=== PATIENT | female | born 1940 | race Hispanic/Latino ===

== ENCOUNTER 2016-07-19 12:39 | Inpatient (IN) | payer OTHER, MEDICARE ==
[~2016-07-19] VITALS: Ht 154.9 cm; Wt 76.0 kg
--- NOTE | 2016-07-19 12:54 | NUR ---
75 Y/O FEMALE BIBA FROM [facility] FOR EVAL OF ALTERED MENTAL STATUS AND FEVER SINCE LAST NIGHT. PER EMS, PT HAD TEMERATURE LAST NIGHT AND STAFF GAVE TYLENOL FOR SAME; ALSO REPORT PT HAS HAD URI SYMPTOMS FOR A FEW DAYS. THIS MORNING WAS FOUND LETHARGIC WITH ABNORMAL LAB VALUES (IN CHART, FROM THIS AM - GLUCOSE 1017, GAP 30 ..). PT ARRIVES UNRESPONSIVE; MOANING WITH STAFF INTERVENTIONS (MOVEMENT, VITALS). TACHYCARDIC (PULSE 130S), TACHYPNEIC (RR 24-26), AND HYPOTENSIVE (81/51) PRE HOSPITAL IV IN PLACE WITH FLUIDS INFUSING. FINGERSTICK ON ARRIVAL 499 BROKE BEATER OPERATOR KAT INTO EVAL
--- NOTE | 2016-07-19 12:57 | ED AMS/SEIZURE/WEAK/DIZZY ---
History of Present Illness General Chief Complaint: Altered Mental Status Stated Complaint: BIBA CHANGE IN MENTAL STATUS Source: family, W10 Exam Limitations: clinical condition Vital Signs & Intake/Output Vital Signs & Intake/Output Vital Signs Date Time Temp Pulse Resp B/P Pulse O2 O2 Flow FiO2 Ox Delivery Rate 07/19 1749 99.9 104 22 112/55 96 Nasal 2.0L Cannula 07/19 1623 97 Nasal 2.0L Cannula 07/19 1605 99.5 100 22 121/57 96 Nasal 2.0L Cannula 07/19 1530 99.8 101 20 137/60 92 Room Air Room Air 07/19 1431 99.3 100 22 107/53 100 Non 100% ReBreather 07/19 1405 100.0 106 24 97/47 100 Non 100% ReBreather 07/19 1328 103.3 117 26 92/53 95 Non 100% ReBreather 07/19 1310 102.2 07/19 1256 90 Non 100% ReBreather 07/19 1244 100.9 139 24 81/51 90 Non 100% ReBreather Allergies Coded Allergies: No Known Allergies (07/19/16) Triage Note: 75 Y/O FEMALE BIBA FROM [facility] FOR EVAL OF ALTERED MENTAL STATUS AND FEVER SINCE LAST NIGHT. PER EMS, PT HAD TEMERATURE LAST NIGHT AND STAFF GAVE TYLENOL FOR SAME; ALSO REPORT PT HAS HAD URI SYMPTOMS FOR A FEW DAYS. THIS MORNING WAS FOUND LETHARGIC WITH ABNORMAL LAB VALUES (IN CHART, FROM THIS AM - GLUCOSE 1017, GAP 30 ..). PT ARRIVES UNRESPONSIVE; MOANING WITH STAFF INTERVENTIONS (MOVEMENT, VITALS). TACHYCARDIC (PULSE 130S), TACHYPNEIC (RR 24-26), AND HYPOTENSIVE (81/51) PRE HOSPITAL IV IN PLACE WITH FLUIDS INFUSING. FINGERSTICK ON ARRIVAL 499 WOOD TANK BUILDER KAT INTO EVAL Triage Nurses Notes Reviewed? yes HPI: 75-year-old female arrived by ambulance from [facility] to room 8 for evaluation of unresponsiveness. According to her daughter Thursday or of this week she was complaining of an upper respiratory infection she then started with lethargy which was increasing yesterday and then into today. She has had decrease by mouth intake with a low-grade fever. According to her daughter she denied of any abdominal pain, chest pain, shortness of breath. [facility] a temperature of 103 and she was completely unresponsive so they sent her to the emergency department. Her daughter also reports that they had a family meeting yesterday and they began to keep her at the prison for treatment until it deemed that she needed hospitalization. She is DNR/DNI but the daughter and son would like everything done at this time including intubation if needed. Upon arrival to the emergency department the patient is unresponsive but alert to painful stimuli. Tylenol was given prior to arrival this morning but unknown time. Prehospital blood work showed glucose of 1017. She was started on Tamiflu 75 mg unknown how many doses. (KAT ROBLERO APRN) Past History Travel History Traveled to [place] past 21 day No Medical History Any Pertinent Medical History? 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 No (KAT ROBLERO APRN) Review of Systems Review of Systems Constitutional: Reports: see HPI. EENTM: Reports: no symptoms. Respiratory: Reports: no symptoms. Cardiovascular: Reports: no symptoms. GI: Reports: no symptoms. Genitourinary: Reports: no symptoms. Musculoskeletal: Reports: no symptoms. Skin: Reports: no symptoms. Neurological/Psychological: Reports: dementia. Hematologic/Endocrine: Reports: no symptoms. Immunologic/Allergic: Reports: no symptoms. All Other Systems: Reviewed and Negative (KAT ROBLERO APRN) Physical Exam Physical Exam General Appearance: unresponsive Head: atraumatic, normal appearance Eyes: Bilateral: normal appearance, PERRL, EOMI. Ears, Nose, Throat: normal pharynx, normal ENT inspection Neck: normal inspection, supple, full range of motion Respiratory: normal breath sounds, chest non-tender, no respiratory distress Cardiovascular: tachycardia Gastrointestinal: normal bowel sounds, soft, non-tender Back: normal inspection, normal range of motion Extremities: normal range of motion, pelvis stable Skin: intact, normal color, warm/dry Core Measures ACS in differential dx? No CVA/TIA Diagnosis: No Severe Sepsis Present: Yes BC x2: Yes Lactic Acid x2: Yes IV ABX Broad Spectrum: Yes NS/LR Started: Yes Septic Shock Present: No (KAT ROBLERO APRN) Progress Differential Diagnosis: dehydration, electrolyte imbalance, pneumonia, sepsis, UTI/pyelo, hyperglycemia/DKA/HONK Plan of Care: Orders Procedure Date/time Status CT CHEST WO IV CONTRAST 07/20 1000 Active ICU LAB BUNDLE 07/20 0500 Active CBC WITHOUT DIFFERENTIAL 07/20 0500 Active TROPONIN LEVEL 07/20 0300 Active EKG 07/20 0300 Active TROPONIN LEVEL 07/19 2100 Active EKG 07/19 2100 Active LACTIC ACID 07/19 1822 Active ICU LAB BUNDLE 07/19 1700 Complete PARTIAL THROMBOPLASTIN TIME 07/19 1653 Active PROTHROMBIN TIME 07/19 1653 Active Change service to 07/19 1648 Active Code Status 07/19 1543 Active CULTURE,URINE 07/19 1528 Active LOWER RESPIRATORY CULTURE 07/19 1524 Active LACTIC ACID 07/19 1522 Complete ARTERIAL BLOOD GAS (GEN) 07/19 1443 Active Pathway - chart 07/19 1442 Active House Staff 07/19 1442 Active Patient Data 07/19 1442 Active Code Status 07/19 1442 Complete Add-on Test (ER Only) 07/19 1435 Active Patient Data 07/19 1429 Active Admit to inpatient 07/19 1423 Active Add-on Test (ER Only) 07/19 1352 Active THYROID STIMULATING HORMONE 07/19 1310 Active SERUM OSMOLALITY 07/19 1310 Active GLYCOSYLATED HGB 07/19 1310 Active FREE T4 07/19 1310 Active DEPAKOTE LEVEL 07/19 1310 Active ACETONE 07/19 1310 Active RAPID VIRAL INFLUENZA A 07/19 1302 Complete MIXED VENOUS BLOOD GAS (GEN) 07/19 1257 Complete Saline Lock 07/19 1257 Active Telemetry/Journeyman Carpenter 07/19 1257 Active Vargas, Insertion/Removal/Asses 07/19 1257 Active CULTURE,URINE 07/19 1257 Active BLOOD CULTURE 07/19 1257 Active URINALYSIS 07/19 1257 Complete TROPONIN LEVEL 07/19 1257 Active LIPASE 07/19 1257 Active LACTIC ACID 07/19 1257 Active COMPREHENSIVE METABOLIC PANEL 07/19 1257 Active CBC WITHOUT DIFFERENTIAL 07/19 1257 Complete AMYLASE 07/19 1257 Active EKG 07/19 1254 Active Intake & Output 07/19 1247 Active FingerStick- Glucose 07/19 1242 Active US-LIMITED ABDOMEN 07/19 UNK Active SWALLOW EVALUATION 07/19 UNK Active XRY-PORTABLE CHEST XRAY 07/19 UNK Active Lab Add-on Test 07/19 UNK Active VTE Mechanical Prophylaxis 07/19 UNK Active Precautions 07/19 UNK Active Nursing Misc 07/19 UNK Active FingerStick- Glucose 07/19 UNK Active Elevate 07/19 UNK Active ICU LAB BUNDLE 07/19 UNK Active Current Medications Sig/Bess Start time Last Medication Dose Stop Time Status Admin Pantoprazole Sodium 40 MG DAILY 07/20 1000 CANr (Protonix) Ampicillin Sodium/ 3,000 MG Q12 07/19 2200 AC Sulbactam Sodium (Unasyn) Sodium Chloride 100 ML (Normal Saline 0.9%) Acetaminophen 1,000 MG Q4 HRS NEEDED PRN 07/19 1815 UNVr (Ofirmev) Potassium Chloride 40 MEQ 150 MLS/HR 07/19 1545 CAN (KCl 20MEQ in NS 1000ML) Laboratory Tests 07/19/16 1635: Lactic Acid 7.1 H 07/19/16 1635: Anion Gap 24 H, Estimated GFR 19 L, Glucose 692 *H, Calcium 7.8 L, Phosphorus 4.1, Magnesium 1.9, Total Bilirubin 0.6, AST 33, ALT 50, Albumin 3.2 L 07/19/16 1610: pH 7.31 L, pCO2 26 L, pO2 77 L, HCO3 13 L, ABG O2 Sat (Measured) 94.0 L, P- 50 (Temp Corrected) N, Carboxyhemoglobin 0.3 L, O2 Concentration % 2L, Temperature 99.3, O2 Delivery Method NC, Phlebotomy Draw Site RIGHT RADIAL 07/19/16 1557: Lactic Acid Cancelled 07/19/16 1310: Anion Gap 34 H, Estimated GFR 10 L, BUN/Creatinine Ratio 9.8, Glucose 1103 *H, Hemoglobin A1c Pending, Serum Osmolality 389 H, Lactic Acid 8.3 H, Calcium 9.5 , Total Bilirubin 0.9, AST 28, ALT 67 H, Alkaline Phosphatase 82, Troponin I 0.14 *H, Total Protein 7.6, Albumin 4.3, Globulin 3.3, Albumin/Globulin Ratio 1.3, Amylase 131 H, Lipase 161, TSH 0.312, Free T4 2.76 H, CBC w Diff MAN DIFF ORDERED, RBC 4.87, MCV 99.8 H, MCH 31.4 H, RDW 14.0, MPV 10.2, Gran % 82.8 H, Lymphocytes % 7.6 L, Monocytes % 9.5 H, Eosinophils % 0, Basophils % 0.1, Absolute Granulocytes 21.0 H, Segmented Neutrophils 72, Band Neutrophils 13 H, Absolute Lymphocytes 1.9, Lymphocytes 11 L, Monocytes 3, Absolute Monocytes 2.4 H, Absolute Eosinophils 0, Basophils 1, Absolute Basophils 0, Normocytic RBCs VERIFIED, Normochromic RBCs VERIFIED, PUBS MCHC 31.4 L, Valproic Acid 14.9 L, Acetone Level POSITIVE AT 1:4 DIL, Urine Color YEL, Urine Clarity CLDY H, Urine pH 5.0, Ur Specific Crouse 1.025, Urine Protein 30 H, Urine Ketones TRACE H, Urine Nitrite NEG, Urine Bilirubin NEG@ICTO, Urine Urobilinogen 1.0, Ur Leukocyte Esterase NEG, Ur Microscopic SEDIMENT EXAMINED, Urine WBC RARE, Ur Epithelial Cells MOD H, Urine Bacteria MANY H, Urine Hemoglobin NEG, Urine Glucose >=1000 H 07/19/16 1215: Bicarbonate Actual 13 L, Mixed VBG pH 7.22 L, Mixed VBG pCO2 33 L, Mixed VBG O2 Saturation 45, P-50 (Temp Corrected) Y, Carboxyhemoglobin 0.4 L, O2 Concentration % 100, Temperature 101.8 H, O2 Delivery Method NRB, Phlebotomy Draw Site R-HAND Microbiology 07/19 1528 URINE ROUT: Urine Culture - COLB 07/19 1524 LOWER RESP: Respiratory Culture - COLB 07/19 1524 LOWER RESP: Gram Stain - COLB 07/19 1458 BLOOD: Blood Culture - RECD 07/19 1315 NASOPHARYN: Influenza Virus A & B Rapid Smear - COMP 07/19 1310 URINE ROUT: Urine Culture - RECD 07/19 1310 BLOOD: Blood Culture - RECD CXR Impression: see below Initial ED EKG: sinus tachycardia, left axis deviation nonspecific ST-T wave changes no old one to compare Comments: PATIENT: NAS BARRAZA PRESENT AGE: 75 PATIENT ACCOUNT NO: [id number] : 42 LOCATION: [facility] ORDERING PHYSICIAN: KAT ROBLERO APRN SERVICE DATE: 07/19/16-1324 EXAM TYPE: RAD - XRY-PORTABLE CHEST XRAY EXAMINATION: XR PORTABLE CHEST CLINICAL INFORMATION: Pneumonia. COMPARISON: None TECHNIQUE: Portable AP view of the chest was obtained. FINDINGS: The cardiac silhouette is not enlarged. There is deviation of the trachea to the right with soft tissue density in the left paratracheal region and an associated surgical clip. The lung volumes are decreased without obvious consolidation or atelectasis. No focal osseous abnormalities. IMPRESSION: Low lung volumes without consolidation or atelectasis. Rightward deviation of the trachea with left paratracheal soft tissue mass. Correlate with any history of retrosternal goiter. Additional imaging as clinically warranted. DICTATED BY: BLAYNE TEJADA MD DATE/TIME DICTATED:07/19/161416 REGRINDER OPERATOR:VIJAYA DATE/TIME TRANSCRIBED:07/19/161416 CONFIDENTIAL, DO NOT COPY WITHOUT APPROPRIATE AUTHORIZATION. <Electronically signed in Other Vendor System> SIGNED BY: BLAYNE TEJADA MD 07/19/16 142 Case discussed with family. Dr. Zepeda was in the room to and spoke with family also. Margy Sanon MD notified and will admit patient to ICU with DKA, renal failure, electrolyte abnormalities, elevated troponin. Aggressive hydration, insulin drip, bicarbonate drip, IV antibiotic coverage broad-spectrum and patient has been pancultured. Endocrine consult with Aram Mccracken MD. Since there was a positive troponin Dr. Rebolledo was notified. No ECG changes that are acute. (KAT ROBLERO APRN) Departure Departure Time of Disposition: 1431 Disposition: STILL A PATIENT Condition: Critical Clinical Impression Primary Impression: DKA (diabetic ketoacidoses) Qualifiers: Diabetes mellitus type: other specified (including MARKEL) Diabetes mellitus complication detail: with coma Qualified Code: E13.11 - Other specified diabetes mellitus with ketoacidosis with coma Secondary Impressions: Acute renal failure Qualifiers: Acute renal failure type: unspecified Qualified Code: N17.9 - Acute kidney failure, unspecified Elevated troponin Lactic acidosis Leukocytosis Qualifiers: Leukocytosis type: unspecified Qualified Code: D72.829 - Elevated white blood cell count, unspecified Referrals: GEREMIAS GRAY,KAT PAUL (PCP) Departure Forms: Customer Survey General Discharge Information Admission Note Spoke With: D'BALLESTEROS MD,MARGY A. Documentation of Exam: Documentation of any treatments & extenuating circumstances including Concerns Regarding Discharge (functional status, medication knowledge or non-compliance, living conditions, etc.) that warrant an admission rather than observation: Will need admission to ICU for treatment of DKA. IV fluids, IV insulin, IV bicarbonate. Aram Mccracken MD already consulted. Further evaluation of sepsis/CT abdomen and pelvis pending. We'll cover with IV antibiotics also (KAT ROBLERO APRN) PA/ENGLISH AS A SECOND LANGUAGE INSTRUCTOR Co-Sign Statement Statement: ED Attending supervision documentation- [X] I saw and evaluated the patient. I have also reviewed all the pertinent lab results and diagnostic results. I agree with the findings and the plan of care as documented in the PA's/ENGLISH AS A SECOND LANGUAGE INSTRUCTOR's documentation. [X] I have reviewed the ED Record and agree with the PA's/ENGLISH AS A SECOND LANGUAGE INSTRUCTOR's documentation. [] Additions or exceptions (if any) to the PAs/ENGLISH AS A SECOND LANGUAGE INSTRUCTOR's note and plan are summarized below: [Patient has been having increasing lethargy over the past few days. Outpatient blood work was obtained today and showed a glucose of greater than thousand. Patient is in DKA here in the ER. Patient started on a bicarbonate drip as well as an insulin drip. Patient aggressively hydrated. Endocrinology as well as cardiology consultation to have been obtained. Patient will be admitted to the ICU.] (CHRISTINE GRAY,ARAM Elkins) Critical Care Note Critical Care Note Critical Care Time: mins: (45) (KAT ROBLERO APRN)
--- NOTE | 2016-07-19 12:59 | NUR ---
PT ARRIVES WITH DNR/DNI PAPERWORK. DOCUMENT SPECIALIST INFORMED OF SAME
--- NOTE | 2016-07-19 13:18 | NUR ---
RESP HERE FOR VBG PICKUP
[2016-07-19 13:20] LABS: ABSOLUTE BASOPHIL COUNT 0 /CUMM (0.0-0.2); ABSOLUTE EOSINOPHIL COUNT 0 /CUMM (0.0-0.7); ABSOLUTE LYMPH COUNT 1.9 /CUMM (1.2-3.4); ABSOLUTE MONOCYTE COUNT 2.4 /CUMM (0.10-0.60); BASOPHIL % 0.1 % (0.0-2.0); EOSINOPHIL % 0 % (0-5); HEMATOCRIT 48.6 % (37-47); MEAN CORPUSCULAR HGB 31.4 PG (27.0-31.0); MEAN CORPUSCULAR HGB CONC 31.4 G/DL (33.0-37.0); MEAN CORPUSCULAR VOLUME 99.8 FL (81.0-99.0); MEAN PLATELET VOLUME 10.2 FL (7.4-10.4); PLATELET COUNT 223 /CUMM (130-400); RED BLOOD CELL CT 4.87 /CUMM (4.20-5.40); WHITE BLOOD CELL COUNT 25.4 /CUMM (4.8-10.8)
[2016-07-19 13:33] LABS: GRANULOCYTE % 82.8 % (42.2-75.2)
--- NOTE | 2016-07-19 13:33 | NUR ---
PT NOTED TO BE MORE ALERT, OPENING EYES TO VERBAL STIMULI. SINUS TACH 120 ON CONTROLLER INSTRUCTOR.
--- NOTE | 2016-07-19 13:52 | NUR ---
CRITICAL TEST RESULTS [id number] NAS BARRAZA 75 F TESTS AND RESULTS: GLUCOSE 1,103 CO2 9, LACTIC 8.3 Results received and read back by: DAVE NOBLES Results received date and time: 07/19/16 1352 The following provider was notified of the results, and read the results back: MARIALUISA STEPHENS Notified date and time: 07/19/16 at 1353
--- NOTE | 2016-07-19 13:53 | NUR ---
CRITICAL TEST RESULTS [id number] NAS BARRAZA 75 F TESTS AND RESULTS: TROPONIN 0.14 Results received and read back by: AMY GROSS Results received date and time: 07/19/16 1353 The following provider was notified of the results, and read the results back: KAT ELAM Notified date and time: 07/19/16 at 1355
--- NOTE | 2016-07-19 14:22 | RADIOLOGY REPORT ---
EXAMINATION: XR PORTABLE CHEST CLINICAL INFORMATION: Pneumonia. COMPARISON: None TECHNIQUE: Portable AP view of the chest was obtained. FINDINGS: The cardiac silhouette is not enlarged. There is deviation of the trachea to the right with soft tissue density in the left paratracheal region and an associated surgical clip. The lung volumes are decreased without obvious consolidation or atelectasis. No focal osseous abnormalities. IMPRESSION: Low lung volumes without consolidation or atelectasis. Rightward deviation of the trachea with left paratracheal soft tissue mass. Correlate with any history of retrosternal goiter. Additional imaging as clinically warranted.
--- NOTE | 2016-07-19 14:44 | History & Physical ---
[facility] 07/19/16 1444: General Information and HPI MD Statement: I have seen and personally examined NAS RUANO and documented this H&P. The patient is a 75 year old F who presented with a patient stated chief complaint of [hyperglycemia, fever, and unresponsiveness]. Source of Information: family Exam Limitations: dementia, poor historian History of Present Illness: 75-year-old female with PMH anxiety, depression, alzheimer's dementia, baseline nonverbal and unable to recognize people, hypothyroidism, was brought in by ambulance from [facility]) for glucose > 1000, persistent fever, and unresponsiveness. History obtained from her daughter who was present at bedside. Patient was in her normal state of health up until (07/17/16), when her daughter notices that she appears more listless with decreased po intake. There was also outbreak of influenza at the facility, so she was started on tamiflu ( however rapid flu negative on 07/19). The next day, she spiked fever, was given tylenol, and was noted to be more restless. Her PO intake continued to deteriorate, and she threw up X 1. Her legs was also noted to be purple/mottled. On Thursday (day of admission), she spiked fever again, and blood work shows glucose > 1000. She was also unresponsive, which was concerning to the daughter. So she was brought to the ED. On presentation, she was unresponsive, with vitals significant for temp 103.3, tachycardia 139, BP 81/51, sat 100% on non rebreather. Labs significant for glucose of 1103, AG 34, na 147, k 5.1, serum osm 350, bun/cr 42/4.3 (was 13/0.7 in mar 2015), lactic acid 8.3, venous blood gas ph 7.22, co2 33, wbc 25.4 with 13 bands. She received 4L NS with improvement of BP to 107/53, she was started on bicarb drip as well as insulin drip. Her trop also noted to be elevated at 0.14. The flu swab was negative. When we examined her, she was back to baseline (appears confused, nonverbal, moaning, unable to recognize her daughter, but this is her baseline). Her blood glucose has improved to around 500. She did have nonproductive cough. Confirmed with her daughter that she wishes to be DNR/DNI. CXR shows left paratracheal soft tissue mass that warrants further imaging. CT abd and pelvis showed possible pneumonia. Unasyn given 1X in ED. 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 Extended Care Facility Who Do You Live With? [facility] Services at Home: Nursing Primary Language: Greenlandic Functional Ability ADLs Needs Assist: dressing, eating, toileting, bathing. Ambulation: non-ambulatory IADLs Needs Assist: shopping, housework, finances, food prep, telephone, transportation, medication admin. Review of Systems Review of Systems Constitutional: Reports: see HPI, fever. Respiratory: Reports: cough. Exam & Diagnostic Data Last 24 Hrs of Vital Signs/I&O Vital Signs Date Time Temp Pulse Resp B/P Pulse O2 O2 Flow FiO2 Ox Delivery Rate 07/19 1623 97 Nasal 2.0L Cannula 07/19 1605 99.5 100 22 121/57 96 Nasal 2.0L Cannula 07/19 1530 99.8 101 20 137/60 92 Room Air Room Air 07/19 1431 99.3 100 22 107/53 100 Non 100% ReBreather 07/19 1405 100.0 106 24 97/47 100 Non 100% ReBreather 07/19 1328 103.3 117 26 92/53 95 Non 100% ReBreather 07/19 1310 102.2 07/19 1256 90 Non 100% ReBreather 07/19 1244 100.9 139 24 81/51 90 Non 100% ReBreather Intake & Output 07/19 1600 07/19 0800 07/19 0000 Intake Total 4000 Output Total 130 Balance 3870 Intake, IV 4000 Output, Urine 130 Patient 81.647 kg Weight Physical Exam General Appearance Alert, Not oriented, nonverbal, her baseline as per daughter Skin No Significant Lesion HEENT Atraumatic, dry mucous membranes Neck No JVD, +2 Carotid Pulse wo Bruit Cardiovascular Normal S1, Normal S2, tachycardic, low 100s Lungs Clear to Auscultation, was not taking deep breaths Abdomen Normal Bowel Sounds, Soft, No Tenderness Neurological moaning, no meaningful speech Extremities No Edema Vascular Normal Pulses, normal cap refill Diagnostic Data EKG Results ST 134 CXR Results IMPRESSION: Low lung volumes without consolidation or atelectasis. Rightward deviation of the trachea with left paratracheal soft tissue mass. Correlate with any history of retrosternal goiter. Additional imaging as clinically warranted. Other Results CT abd and pelvis IMPRESSION: 1. Bilateral lower lobe airspace consolidations, right greater than left, which likely represent pneumonia. 2. The gallbladder is distended and hyperdense without pericholecystic fat stranding. This could represent stones versus sludge. Right upper quadrant ultrasound could be considered to help further evaluate if clinically indicated. 3. Multiple hypodensities throughout the bilateral kidneys. Calcifications associated with a right kidney lower pole hypodense lesion. These could represent complex cysts; however, renal cell carcinoma cannot be excluded and followup ultrasound is recommended to help further evaluate. Nonobstructive right renal stone. 4. Colonic diverticulosis without adjacent inflammatory change. DICTATED BY: SARA PRITCHARD MD DATE/TIME DICTATED:07/19/161602 Assessment/Plan Assessment: 75-year-old female with PMH anxiety, depression, alzheimer's dementia, baseline nonverbal and unable to recognize people, hypothyroidism, was brought in by ambulance from [facility] for glucose > 1000, persistent fever, and unresponsiveness. Patient admitted to ICU for hyperosmolar hyperglycemic state with mild ketoacidosis and lactic acidosis, with fever up to 103.3, WBC 25.4 with 13 bands , most likely due to pneumonia as suggested by imaging. Troponin also found to be elevated, most likely due to demand ischemia, but cannot rule out ischemia as the stressor. 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 Problem list: # Hyperosmolar hyperglycemic state with mild ketoacidosis and lactic acidosis # Severe sepsis, hypotension, most likely due to pneumonia # BRANDON most likely due to poor PO intake (prerenal) # Positive troponin most likely demand ischemia # Hyperosmolar hyperglycemic state with mild ketoacidosis and lactic acidosis - No hx of DM in pt or family * On 40meq KCL in NS at 150ml/hour, and insulin drip at 8. * Appreciate endocrinology input, Dr. Mccracken * F/u hba1c, tsh, ft4 * Maintain on insulin drip tonight with plan to switch to SC insulin tomorrow * When her bloood sugar gets to 250 we should change her IV to D5 half-normal saline + 20 milliequivalents KCl at 150 mL per hour. At that point her insulin drip should be adjusted to keep her sugar in the 180-200 range. * IV protonix started # Severe sepsis most likely due to PNA - Flu negative - CT: Bilateral lower lobe airspace consolidations, right greater than left, which likely represent pneumonia. - The gallbladder is distended and hyperdense without pericholecystic fat stranding. This could represent stones versus sludge. Right upper quadrant ultrasound could be considered to help further evaluate if clinically indicated. * Follow pancx * 1XUnasyn given in ED * Continue high dose unasyn for possible aspiration PNA, consider HCAP as well * Follow up CT chest wo contrast on 07/20 * F/U RUQ US. doubt obstructive pathology given normal bilirubin # BRANDON most likely due to poor PO intake (prerenal) - Multiple hypodensities throughout the bilateral kidneys. Calcifications associated with a right kidney lower pole hypodense lesion. These could represent complex cysts; however, renal cell carcinoma cannot be excluded and followup ultrasound is recommended to help further evaluate. Nonobstructive right renal stone. * Aggressive IVF * Consider renal consult if does not improve # Positive troponin (most likely demand ischemia, tachy up to 140, fever) - Trop 0.14 * Serial Ekg and trops * Consider cardio consult # Home meds Levothyroxine Lisinopril 5 Vaproic Trazodone 100 Quetiapine 50 Senna Miralax Diet: NPO DVT ppx: mech and pharm DNR/DNI As Ranked By This Provider Problem List: 1. DKA (diabetic ketoacidoses) Qualifiers Diabetes mellitus type: other specified (including MARKEL) Diabetes mellitus complication detail: with coma Qualified Code: E13.11 - Other specified diabetes mellitus with ketoacidosis with coma 2. Lactic acidosis 3. Leukocytosis Qualifiers Leukocytosis type: unspecified Qualified Code: D72.829 - Elevated white blood cell count, unspecified 4. Hyperosmolar coma 5. Elevated troponin 6. Acute renal failure Qualifiers Acute renal failure type: unspecified Qualified Code: N17.9 - Acute kidney failure, unspecified Core Measures/Miscellaneous Acute Coronary Syndrome ACS Diagnosis: No Cerebrovascular Accident CVA/TIA Diagnosis: No Congestive Heart Failure CHF Diagnosis: No Venous Thromboembolism VTE Risk Factors: Age > 40, Immobility, paresis [facility] prophylaxis d/t: No contraindications No VTE Pharm Prophylaxis d/t: No contraindications VTE Diagnosis: No VTE Type: NONE VTE Confirmed by (Test): NONE Severe Sepsis Severe Sepsis Present: Yes BC x2: Yes Lactic Acid x2: Yes IV ABX Broad Spectrum: Yes NS/LR Started: Yes Septic Shock Septic Shock Present: No Miscellaneous Documentation Attending Case Discussed With: SHELLIE GRAY,MELISSA Sarabia Primary Care Physician: GEREMIAS GRAY,KAT PAUL Patient sees these Specialists None Level of Patient Care: Critical Care (CRI) NAN WEBBER 07/19/16 1735: Resident Review Statement Resident Statement: examined this patient, discussed with international marketing executive, agreed with international marketing executive, discussed with family, reviewed EMR data (avail), discussed with nursing , discussed with case mgmt, reviewed images, amended to note Other Findings: 75-year-old woman was brought in to the emergency room from [facility] after blood sugar found to be elevated around 1000. Mrs. Ruano is an unfortunate case of end-stage Alzheimer dementia, with past medical history significant for hypertension, dysphagia, acquired cystic kidney disease, AR, OA, and dysphagia. Majority of the HPI was obtained from her daughter who presented at the bedside. According to daughter patient's as her baseline is noncommunicative and nonverbal. Recently there was a flu outbreak at the [facility]. Up until Thursday she was at her overall state of health. She did not express any symptoms of upper respiratory tract infection, change in bowel habits and consistency, change in urine color and smell. As her baseline patient has a very poor oral intake and since Thursday her appetite and by mouth intake has diminished significantly. According to daughter patient refused eating food and drinking water and had persistence temperatures of around 102-103 which did not resolve with Tylenol and cold compress. Patient progressively became more and more lethargic this a.m. blood work was obtained which showed a significant hyperglycemia of 1017 mg/dl, and patient was sent to the emergency room. Review of system: Not obtainable; vital signs: Max temperature of 103 the remainder of the vital signs remained stable; physical exam: Patient is lethargic, nonverbal noncommunicative due to her advanced dementia, head and neck: Mucous membranes are dry; heart: S1 and S2 no murmur; abdomen: Generalized tenderness; extremities: No edema, capillary refilling time increased. Lab findings WBC of 25.4 with significant left shift band 13, hemoglobin 15.3, hematocrit 48.6, AB.31, 26, 77, 13 Sodium 147, potassium 5.1, chloride 104, bicarbonate 9, BUN 42, creatinine 4.3, R range of initially 34 improved to 24, blood sugar initially 1103>>> 692mg/dl Troponin: 0.14 Lactic acid 8.3>>> 7.1 UA: Positive nitrates glucose morning 1000 positive ketone Chest x-ray: Abdominopelvic CT scan: Multiple hypodensities throughout the bilateral kidneys. Calcifications associated with a right kidney lower pole hypodense lesion; Bilateral lower lobe airspace consolidations, right greater than left, which likely represent pneumonia; The gallbladder is distended and hyperdense without pericholecystic fat stranding. Assessment 75-year-old woman was admitted for diabetes ketoacidosis. She was found to have elevated lactic acid and bandemia and positive urine she also has elevated lactic acid. Chest x-ray did not show any infiltration or consolidation. List of active problems #1 DKA: Patient does not have history of diabetes. New-onset diabetes considering her age is a very, unit phenomenon however it cannot be excluded. If patient have had ongoing uncovered DM, then poor oral intake and insulin deficiency could cause her to be in DKA. Other conditions that could trigger it diabetes ketoacidosis and needs to be rule out, are infection and ischemia/ infarct. * Admit to ICU * Started patient on normal saline 10-14 mL per KG per hour; Tailor for urine outputs * Continue insulin drip * Check fingerstick every hour * serial abdominal exam Q1 * Expected decrease in blood sugar between 50-70 mg/dL; adjust the insulin drip rates * Repeat ICU bundle every 4 hours * Continue insulin drip to close the AG * If blood sugar was below 250 and Was is still elevated start dextrose water 5% with 20 mEq potassium with a rate of 150 mL per hour * when BS reached 180-200 adjust insulin drip should be adjusted to keep her sugar in the 180-200 range. per endo " keep the patient on an insulin drip during the night tonight and we can switch her to subcutaneous insulin tomorrow "Morris 4d #2 Sepsis (fever, lactic acidosis, bandemia, documented/suspect the source of infection) Vs severe dehydration. Chest x-ray showed tractional deviation and CT scan of the chest highlighted basilar consolidation right greater than the left (possibly aspiration). She also has an active urine which could be the source of infection. * Nothing by mouth * Trend lactic acid as a measure of efficacy of fluid resuscitation: Initial 8.3 repeat 7.1 * Follow urine culture and blood culture and sputum culture * IV Unasyn 3000 mg every 12 * Head elevation and aspiration precaution * She'll swallow eval #3 Elevated Troponin: ACS Vs demand ischemia . Acute coronary syndrome and ischemic events needs to be rule out as they could be the initiating event for DKA. * Trend troponin * non need for ASA or heparin now #4 Electrolyte imbalance and underlying elevated anion gap metabolic acidosis. Deltadelta: 12 and DD+13 (measured Hco3)= 25 which is somewhat equal to normal ( expected Hco3 of 24). She also has proper respiratory compensation. * repleting K * Replete Phosphorus if <1 * Replet Mg if <2 #5 BRANDON most possibly due to severe dehydraion in the setting of DKA. CCR and BUN are both improved with hydraion that was done in the ED. * continue IV hydration and repeat ICU bundle #6 Her medication for parkinsons disease, sleep disturbance, HTN were nursing- home report in the chart. Please consider resuming them in the am. DNRDNI Pain-mild painpthway Pain-mild painpthway
--- NOTE | 2016-07-19 14:59 | NUR ---
PT TITRATED TO RA AND MAINTAINING O2 SAT AROUND 92%. HOUSE STAFF AT BEDSIDE FOR EVAL.
--- NOTE | 2016-07-19 15:03 | NUR ---
UNASYN INFUSING NOW PER EMAR. 91-92 % ON RA.
--- NOTE | 2016-07-19 15:31 | NUR ---
DR. CLARK AND DR. CALHOUN AT BEDSIDE FOR EVAL.
--- NOTE | 2016-07-19 15:33 | NUR ---
PER DR. CLARK, KEEP INSULIN GTT AT 8 U/HOUR. PT TAKEN TO CAT SCAN WITH THIS RN. WILL CONTINUE TO MONITOR.
--- NOTE | 2016-07-19 16:00 | NUR ---
RESP AT BEDSIDE TO OBTAIN ABG.
--- NOTE | 2016-07-19 16:05 | Cons- Endocrinology ---
General Information and HPI Consulting Request Date of Consult: 07/19/16 Requested By: medical team Reason for Consult: Hyperglycemic hyperosmolar state Source of Information: family, old records Exam Limitations: unable to give history History of Present Illness: This 75-year-old woman who was brought to the hospital from a group home after her blood was drawn earlier today. She was found to have a sugar 1000 and was transferred to the emergency room at the [facility]. The patient has a fever of 103 and has been confirmed to have an elevated blood sugar of over 1000 (1103). There is no previous history of diabetes. Apparently the patient has not been doing well over the past 3 days. She was noted to have a fever of 103 and began eating very little. Then she stopped taking fluids. The patient apparently has a history of dementia. She has been in a group home for 3 years. She is nonverbal. Her daughter speaks to her in Malay which is her [place] language but she still does not follow commands. She also has a history of hypothyroidism. Allergies/Medications Allergies: Coded Allergies: No Known Allergies (07/19/16) Current Medications: Current Medications Sig/Bses Start time Last Medication Dose Route Stop Time Status Admin Ampicillin Sodium/ 3,000 MG ONCE ONE 07/19 1445 DC 07/19 Sulbactam Sodium IV 07/19 1514 1503 Sodium Chloride 100 ML Ampicillin Sodium/ 0 .STK-MED ONE 07/19 1445 DC Sulbactam Sodium .ROUTE Insulin Human Regular 100 UNIT Q24H 07/19 1400 AC 07/19 Sodium Chloride 100 ML IV 1428 Insulin Human Regular 8 UNITS ONCE ONE 07/19 1400 DC 07/19 IV 07/19 1401 1428 Potassium Chloride 40 MEQ Q6H 07/19 1600 AC Sodium Chloride 1,000 ML IV Potassium Chloride 40 MEQ 150 MLS/HR 07/19 1545 CAN IV Sodium Bicarbonate 50 MEQ ONCE ONE 07/19 1400 DC 07/19 IV 07/19 1401 1428 Sodium Bicarbonate 150 MEQ Q8H 07/19 1400 AC 07/19 Dextrose/Water 1,000 ML IV 1428 Sodium Chloride 1,000 ML BOLUS ONE 07/19 1400 DC 07/19 IV 07/19 1459 1428 Sodium Chloride 1,000 ML BOLUS ONE 07/19 1400 DC IV 07/19 1459 Sodium Chloride 1,000 ML BOLUS ONE 07/19 1330 DC 07/19 IV 07/19 1429 1338 Sodium Chloride 1,000 ML BOLUS ONE 07/19 1300 DC 07/19 IV 07/19 1359 1308 Past History Travel History Traveled to [place] past 21 day No Medical History Neurological: dementia EENT: NONE Cardiovascular: hypertension Respiratory: NONE Gastrointestinal: NONE Hepatic: NONE Renal: NONE Musculoskeletal: osteoarthritis Psychiatric: anxiety, depression, PERSONALITY DISORDER Endocrine: hypothyroidism Blood Disorders: NONE Cancer(s): NONE 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 Surgical History Surgical History: unobtainable Exam & Diagnostic Data Last 24 Hrs of Vital Signs/I&O Vital Signs Date Time Temp Pulse Resp B/P Pulse O2 O2 Flow FiO2 Ox Delivery Rate 07/19 1431 99.3 100 22 107/53 100 Non 100% ReBreather 07/19 1405 100.0 106 24 97/47 100 Non 100% ReBreather 07/19 1328 103.3 117 26 92/53 95 Non 100% ReBreather 07/19 1310 102.2 07/19 1256 90 Non 100% ReBreather 07/19 1244 100.9 139 24 81/51 90 Non 100% ReBreather Intake & Output 07/19 1600 07/19 0800 07/19 0000 Intake Total 4000 Output Total 130 Balance 3870 Intake, IV 4000 Output, Urine 130 Patient 180 lb Weight Vital Signs Date Time Temp Pulse Resp B/P Pulse O2 O2 Flow FiO2 Ox Delivery Rate 07/19 1431 99.3 100 22 107/53 100 Non 100% ReBreather 07/19 1405 100.0 106 24 97/47 100 Non 100% ReBreather 07/19 1328 103.3 117 26 92/53 95 Non 100% ReBreather 07/19 1310 102.2 07/19 1256 90 Non 100% ReBreather 07/19 1244 100.9 139 24 81/51 90 Non 100% ReBreather Intake & Output 07/19 1600 07/19 0800 07/19 0000 Intake Total 4000 Output Total 130 Balance 3870 Intake, IV 4000 Output, Urine 130 Patient 180 lb Weight Physical Exam General Appearance: lethargic Head: normal appearance Neck: normal inspection Respiratory: normal breath sounds Cardiovascular: regular rate/rhythm Gastrointestinal: normal bowel sounds, soft Back: normal inspection Extremities: normal inspection Neurologic/Psych: stupor Skin: intact Labs/Neri Results: Laboratory Tests 07/19 07/19 1310 1215 Blood Gas Bicarbonate Actual (22 - 26 MEQ/L) 13 L Mixed VBG pH (7.31 - 7.41 PH) 7.22 L Mixed VBG pCO2 (41 - 51 TORR) 33 L Mixed VBG O2 Saturation (35 - 45 TORR) 45 P-50 (Temp Corrected) Y Carboxyhemoglobin (1.5 - 5.0 %) 0.4 L O2 Concentration % 100 Temperature (97.0 - 100.0 FARH) 101.8 H O2 Delivery Method NRB Chemistry Sodium (137 - 145 mmol/L) 147 H Potassium (3.5 - 5.1 mmol/L) 5.1 Chloride (98 - 107 mmol/L) 104 Carbon Dioxide (22 - 30 mmol/L) 9 *L Anion Gap (5 - 16) 34 H BUN (7 - 17 mg/dL) 42 H Creatinine (0.5 - 1.0 mg/dL) 4.3 H Estimated GFR (>60 ml/min) 10 L BUN/Creatinine Ratio (7 - 25 %) 9.8 Glucose (65 - 99 mg/dL) 1103 *H Serum Osmolality (285 - 295 MOSM/KG) 389 H Lactic Acid (0.7 - 2.1 mmol/L) 8.3 H Calcium (8.4 - 10.2 mg/dL) 9.5 Total Bilirubin (0.2 - 1.3 mg/dL) 0.9 AST (14 - 36 U/L) 28 ALT (9 - 52 U/L) 67 H Alkaline Phosphatase (<127 U/L) 82 Troponin I (< 0.11 ng/ml) 0.14 *H Total Protein (6.3 - 8.2 g/dL) 7.6 Albumin (3.5 - 5.0 g/dL) 4.3 Globulin (1.9 - 4.2 gm/dL) 3.3 Albumin/Globulin Ratio (1.1 - 2.2 %) 1.3 Amylase (30 - 110 U/L) 131 H Lipase (23 - 300 U/L) 161 Hematology CBC w Diff MAN DIFF ORDERED WBC (4.8 - 10.8 /CUMM) 25.4 H RBC (4.20 - 5.40 /CUMM) 4.87 Hgb (12.0 - 16.0 G/DL) 15.3 Hct (37 - 47 %) 48.6 H MCV (81.0 - 99.0 FL) 99.8 H MCH (27.0 - 31.0 PG) 31.4 H RDW (11.5 - 14.5 %) 14.0 Plt Count (130 - 400 /CUMM) 223 MPV (7.4 - 10.4 FL) 10.2 Gran % (42.2 - 75.2 %) 82.8 H Lymphocytes % (20.5 - 51.1 %) 7.6 L Monocytes % (1.7 - 9.3 %) 9.5 H Eosinophils % (0 - 5 %) 0 Basophils % (0.0 - 2.0 %) 0.1 Absolute Granulocytes (1.4 - 6.5 /CUMM) 21.0 H Segmented Neutrophils (42.2 - 75.2 %) 72 Band Neutrophils (0.0 - 5.0 %) 13 H Absolute Lymphocytes (1.2 - 3.4 /CUMM) 1.9 Lymphocytes (20.5 - 51.1 %) 11 L Monocytes (1.7 - 9.3 %) 3 Absolute Monocytes (0.10 - 0.60 /CUMM) 2.4 H Absolute Eosinophils (0.0 - 0.7 /CUMM) 0 Basophils (0.0 - 2.0 %) 1 Absolute Basophils (0.0 - 0.2 /CUMM) 0 Normocytic RBCs VERIFIED Normochromic RBCs VERIFIED PUBS MCHC (33.0 - 37.0 G/DL) 31.4 L Miscellaneous Phlebotomy Draw Site R-HAND Toxicology Valproic Acid (50 - 120 ug/mL) 14.9 L Acetone Level (NEGATIVE) POSITIVE AT 1:4 DIL Urines Urine Color (YEL,AMB,STR) YEL Urine Clarity (CLEAR) CLDY H Urine pH (5.0 - 8.0) 5.0 Ur Specific [place] (1.001 - 1.035) 1.025 Urine Protein (NEG,<30 MG/DL) 30 H Urine Ketones (NEG) TRACE H Urine Nitrite (NEG) NEG Urine Bilirubin (NEG) NEG@ICTO Urine Urobilinogen (0.1 - 1.0 EU/dl) 1.0 Ur Leukocyte Esterase (NEG) NEG Ur Microscopic SEDIMENT EXAMINED Urine WBC (0 - 2 /HPF) RARE Ur Epithelial Cells (NONE,FEW) MOD H Urine Bacteria (NEG/NONE) MANY H Urine Hemoglobin (NEG) NEG Urine Glucose (N MG/DL) >=1000 H Assessment/Plan Assessment/Plan This patient presents with hyperosmolar hyperglycemic state with mild ketoacidosis and an elevated lactic acid level of 8.3 consistent with lactic acidosis. She also has a fever of 103. She has evidence of acute renal insufficiency though we do not have any recent baseline lab work. Apparently there is a lot of flu recently at the group home where she has been residing. The patient's white blood count is 25,000. The patient has already received 4 L of normal saline and is beginning to make good amounts of urine. I would change her IV now to normal saline +40 mEq KCl at 150 mL per hour. Her blood sugar presently is 489 by fingerstick. She is on an insulin drip at 8 units per hour. When her bloood sugar gets to 250 we should change her IV to D5 half-normal saline + 20 milliequivalents KCl at 150 mL per hour. At that point her insulin drip should be adjusted to keep her sugar in the 180-200 range. I would keep the patient on an insulin drip during the night tonight and we can switch her to subcutaneous insulin tomorrow. The patient needs repeat lab work drawn now including a complete ICU panel, repeat lactic acid, and troponin. She needs to be pancultured and placed on antibiotic coverage in view of her fever high white blood count. Since the patient has a history of hypothyroidism we should also add a free T4 and TSH to her present blood work. If the lactic acid is down when we obtain the results of her lab work being done now we could stop the bicarbonate drip. If this were ketoacidosis alone a bicarbonate drip would not be indicated. Consult Acknowledgment - Thank you for your consult request.
--- NOTE | 2016-07-19 16:05 | Cons- CRCU ---
General Information and HPI Consulting Request Date of Consult: 07/19/16 Requested By: ed History of Present Illness: Patient was in her normal state of health up until (07/17/16), when her daughter notices that she appears more listless with decreased po intake. There was also outbreak of influenza at the facility, so she was started on tamiflu ( however rapid flu negative on 07/19). The next day, she spiked fever, was given tylenol, and was noted to be more restless. Her PO intake continued to deteriorate, and she threw up X 1. Her legs was also noted to be purple/mottled. On Thursday (day of admission), she spiked fever again, and blood work shows glucose > 1000. She was also unresponsive, which was concerning to the daughter. So she was brought to the ED. In the emergency room she was less responsive. And her sugar was more than 1000. She was found to be in both lactic and diabetic ketoacidosis. Patient received 4 L of normal saline and when I saw her she has had good urine output. She also had a low-grade temperature per patient family in the emergency room she was also found to have a temperature 103.3. No nausea vomiting noted. Her chest x-ray which was done did show that there was a rightward deviation of the trachea with left paratracheal soft tissue mass suggestive of substernal guarded there is no obvious stridor noted. SIGNIFICANT DATA Sodium was 147 corrected sodium was significantly elevated, sugar was significantly elevated Creatinine 4.3 initial creatinine was 3.5 Bicarbonate was 9 Her acetone was positive Lactic acid initially was 8.3 the second lactic acid at the time of discharge had not been done Her amylase was slightly elevated White count was 25,000 with a left shift with hemoglobin of 15.382% segs and there were 13% bands. Urine showed many bacteria trace ketone some protein and nitrate and esterase were negative. Subsequently the urine appeared clear. ABG done in the emergency room 722/33/45. Cultures were pending influenza swab was negative. Allergies/Medications Allergies: Coded Allergies: No Known Allergies (07/19/16) Review of Systems Review of Systems Constitutional: Reports: see HPI. 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 Surgical History Surgical History: unobtainable Exam & Diagnostic Data Last 24 Hrs of Vital Signs/I&O Vital Signs Date Time Temp Pulse Resp B/P Pulse O2 O2 Flow FiO2 Ox Delivery Rate 07/19 1431 99.3 100 22 107/53 100 Non 100% ReBreather 07/19 1405 100.0 106 24 97/47 100 Non 100% ReBreather 07/19 1328 103.3 117 26 92/53 95 Non 100% ReBreather 07/19 1310 102.2 07/19 1256 90 Non 100% ReBreather 07/19 1244 100.9 139 24 81/51 90 Non 100% ReBreather Intake & Output 07/19 1600 07/19 0800 07/19 0000 Intake Total 4000 Output Total 130 Balance 3870 Intake, IV 4000 Output, Urine 130 Patient 180 lb Weight Last 48 Hrs of Labs/Neri: Laboratory Tests 07/19/16 1310: Anion Gap 34 H, Estimated GFR 10 L, BUN/Creatinine Ratio 9.8, Glucose 1103 *H, Serum Osmolality 389 H, Lactic Acid 8.3 H, Calcium 9.5, Total Bilirubin 0.9, AST 28, ALT 67 H, Alkaline Phosphatase 82, Troponin I 0.14 *H, Total Protein 7.6, Albumin 4.3, Globulin 3.3, Albumin/Globulin Ratio 1.3, Amylase 131 H, Lipase 161, CBC w Diff MAN DIFF ORDERED, RBC 4.87, MCV 99.8 H, MCH 31.4 H, RDW 14.0, MPV 10.2, Gran % 82.8 H, Lymphocytes % 7.6 L, Monocytes % 9.5 H, Eosinophils % 0, Basophils % 0.1, Absolute Granulocytes 21.0 H, Segmented Neutrophils 72, Band Neutrophils 13 H, Absolute Lymphocytes 1.9, Lymphocytes 11 L, Monocytes 3, Absolute Monocytes 2.4 H, Absolute Eosinophils 0, Basophils 1, Absolute Basophils 0, Normocytic RBCs VERIFIED, Normochromic RBCs VERIFIED, PUBS MCHC 31.4 L, Valproic Acid 14.9 L, Acetone Level POSITIVE AT 1:4 DIL, Urine Color YEL, Urine Clarity CLDY H, Urine pH 5.0, Ur Specific [place] 1.025, Urine Protein 30 H, Urine Ketones TRACE H, Urine Nitrite NEG, Urine Bilirubin NEG@ ICTO, Urine Urobilinogen 1.0, Ur Leukocyte Esterase NEG, Ur Microscopic SEDIMENT EXAMINED, Urine WBC RARE, Ur Epithelial Cells MOD H, Urine Bacteria MANY H, Urine Hemoglobin NEG, Urine Glucose >=1000 H 07/19/16 1215: Bicarbonate Actual 13 L, Mixed VBG pH 7.22 L, Mixed VBG pCO2 33 L, Mixed VBG O2 Saturation 45, P-50 (Temp Corrected) Y, Carboxyhemoglobin 0.4 L, O2 Concentration % 100, Temperature 101.8 H, O2 Delivery Method NRB, Phlebotomy Draw Site R-HAND Microbiology 07/19 1315 NASOPHARYN: Influenza Virus A & B Rapid Smear - COMP Assessment/Plan Impression/Plan: Physical Exam General Appearance: unresponsive Head: atraumatic, normal appearance Eyes: Bilateral: normal appearance, PERRL, EOMI. Ears, Nose, Throat: normal pharynx, normal ENT inspection Neck: normal inspection, supple, full range of motion Respiratory: normal breath sounds, chest non-tender, no respiratory distress Cardiovascular: tachycardia Gastrointestinal: normal bowel sounds, soft, non-tender Back: normal inspection, normal range of motion Extremities: normal range of motion, pelvis stable Skin: intact, normal color, warm/dry IMPRESSION This is a lady with advanced dementia was essentially bedbound with total care lives in a rehabilitation facility with recent worsening of overall performance status was found to have significant hyperglycemia with ketosis and altered mental status. Issues include * Significant hyperglycemic state with altered mental status with diabetic ketoacidosis. Patient has new onset diabetes. 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 other pathology may need to be ruled out * Severe acidosis including lactic acidosis most likely related to low perfusion state with probable sepsis * Advanced dementia which is worsening * Acute renal failure most likely related to low flow state rule out any obstructive uropathy Recommendation * Continue intravenous fluids * Intravenous insulin * Endocrine is following the patient, please follow there rec * Panculture * Start broad-spectrum antibiotics with Unasyn high dose * CT scan of the chest, abdomen and pelvis without contrast to rule out any significant foci for infection * If the anion gap is improving we will consider stopping her bicarbonate drip * Patient at this time is hemodynamically stable we'll continue watching her closely * Keep the head of bed elevated to prevent aspiration * Keep nothing by mouth until patient's mental status improved * Intravenous proton pump inhibitor * Check coags * Repeat blood work * Continue to monitor troponin * Repeat EKG as she does have some changes Patient is critically ill total time spent 40 minutes Consult Acknowledgment - Thank you for your consult request.
--- NOTE | 2016-07-19 16:22 | NUR ---
PER ALI FROM HOUSE STAFF, BICARB GTT TO BE STOPPED AT THIS TIME. MST AT BEDSIDE TO ATTEMPT BLOOD WORK.
--- NOTE | 2016-07-19 16:25 | CT SCAN REPORT ---
EXAMINATION: CT ABDOMEN AND PELVIS WITHOUT CONTRAST CLINICAL INFORMATION: Intra-abdominal process. Elevated white blood cell count, unknown source. COMPARISON: No relevant prior studies are available for comparison. TECHNIQUE: Multidetector volumetric imaging was performed from the superior aspect of the liver through the pubic symphysis. Sagittal and coronal reformatted images were obtained on the technologist's workstation. DLP: 641.57 mGy-cm FINDINGS: LUNG BASES: Bilateral lower lobe consolidations with associated air bronchograms, right greater than left, likely representing pneumonia. LIVER, GALLBLADDER, AND BILIARY TREE: The liver is normal in size and shape. There is hypodensity of the liver, consistent with fatty infiltration. No focal hepatic lesion or biliary ductal dilatation is present. The gallbladder is distended and hyperdense, which could represent stones versus sludge. There is no pericolic fat stranding. Right upper quadrant ultrasound could be considered to evaluate for cholecystitis if clinically indicated. PANCREAS: Unremarkable. SPLEEN: Unremarkable. ADRENAL GLANDS: Unremarkable. KIDNEYS AND URETERS: A 4.5 cm hypodense lesion is seen within the superior pole of the left kidney. An additional 2.6 cm hypodense lesion is noted anteriorly. There is a 5.7 cm hypodense lesion within the inferior pole of the right kidney. There is an additional 4.0 cm irregular hypodense lesion within the inferior pole of the right kidney with associated calcifications. These findings could represent complex cysts; however, renal cell carcinoma cannot be excluded and followup ultrasound is recommended to help further evaluate. A 1.6 cm nonobstructing calcification is seen within the midpole of the right kidney. There is no hydronephrosis. BLADDER: Partially collapsed with a Vargas catheter in place. GASTROINTESTINAL TRACT: There is no intra-abdominal free air or free fluid. There is no large- or small-bowel obstruction. Scattered diverticula are seen throughout the colon without adjacent inflammatory change. The appendix is unremarkable. ABDOMINAL WALL: No significant hernia is appreciated. LYMPH NODES: Normal. VASCULAR: There are scattered atherosclerotic calcifications throughout the abdominal aorta and its branch vessels. The IVC is unremarkable. PELVIC VISCERA: The uterus and adnexa are unremarkable. OSSEOUS STRUCTURES: No lytic or blastic osseous lesion. Mild degenerative changes within the visualized thoracic and lower lumbar spine as well as within the bilateral hips. IMPRESSION: 1. Bilateral lower lobe airspace consolidations, right greater than left, which likely represent pneumonia. 2. The gallbladder is distended and hyperdense without pericholecystic fat stranding. This could represent stones versus sludge. Right upper quadrant ultrasound could be considered to help further evaluate if clinically indicated. 3. Multiple hypodensities throughout the bilateral kidneys. Calcifications associated with a right kidney lower pole hypodense lesion. These could represent complex cysts; however, renal cell carcinoma cannot be excluded and followup ultrasound is recommended to help further evaluate. Nonobstructive right renal stone. 4. Colonic diverticulosis without adjacent inflammatory change.
--- NOTE | 2016-07-19 16:41 | NUR ---
SST AND GUSTAFSON TOP DRAWN
--- NOTE | 2016-07-19 17:02 | NUR ---
BED ASSIGNMENT 111
--- NOTE | 2016-07-19 17:05 | NUR ---
PT'S RH #22 IV INFILTRATED. IV DC'D AND ICE PACK APPLIED.
--- NOTE | 2016-07-19 17:13 | NUR ---
CRITICAL TEST RESULTS [id number] NAS BARRAZA 75 F TESTS AND RESULTS: GLUCOSE 692 LACTIC ACID 7.1 Results received and read back by: AMY GROSS Results received date and time: 07/19/16 1716 The following provider was notified of the results, and read the results back: JUNIOR FROM [facility] ST[facility] #[phone] Notified date and time: 07/19/16 at [id number]
--- NOTE | 2016-07-19 17:25 | NUR ---
NURSE TO CALL BACK FOR REPORT.
--- NOTE | 2016-07-19 18:11 | NUR ---
REPORT GIVEN TO WAN LUNA. DISTRIBUTION BOOKED.
--- NOTE | 2016-07-19 20:13 | NUR ---
REC'D THE PT FROM THE ER AT 182 VIA STRETCHER. TRANSFERRED TO THE BED WITH AN ASSIST OF 3 PERSONS. PT IS NONVERBAL AND ONLY MOANS TO STIMULATION. PT IS IN A ST WITHOUT ECTOPY PER THE ASSEMBLER GOLD FRAME. TRISTAN BS ARE COARSE BUTPT DOES NOT FOLLOW COMMANDS AT ALL EVEN TO TAKE A DEEP BREATH. O2 SAT IS 96% ON A 2LNC. ABD IS SOFT WITH NORMOACTIVE BOWEL SOUNDS. GAMBOA IN PLACE DRAINING CLEAR YELLOW URINE. REMAINS ON AN INSULIN GTT AT 8U/HR INFUSING VIA A #20 TO THE . FSG JUST PRIOR TO TRANSFER TO CRCU AT 1824 WAS 466. IN ADDITION, THE PT IS RECEIVING NS WITH KCL 40MEQ AT 150ML/HR VIA A #22 TO THE . FAMILY AT BEDSIDE, ORIENTED TO [facility] ROUTINE WELL OPEN VISITING HOURS. PLAN OF CARE REVIEWED WITH FAMILY.
[2016-07-19 22:42] LABS: ABSOLUTE BASOPHIL COUNT 0 /CUMM (0.0-0.2); ABSOLUTE EOSINOPHIL COUNT 0 /CUMM (0.0-0.7); ABSOLUTE LYMPH COUNT 3.3 /CUMM (1.2-3.4); ABSOLUTE MONOCYTE COUNT 0.6 /CUMM (0.10-0.60); BASOPHIL % 0.1 % (0.0-2.0); EOSINOPHIL % 0 % (0-5); GRANULOCYTE % 77.9 % (42.2-75.2); HEMATOCRIT 44.6 % (37-47); MEAN CORPUSCULAR HGB CONC 32.7 G/DL (33.0-37.0); MEAN PLATELET VOLUME 9.4 FL (7.4-10.4); PLATELET COUNT 145 /CUMM (130-400); RBC DISTRIBUTION WIDTH 13.7 % (11.5-14.5); WHITE BLOOD CELL COUNT 17.9 /CUMM (4.8-10.8)
[2016-07-19 22:44] LABS: MEAN CORPUSCULAR VOLUME 94.8 FL (81.0-99.0)
[2016-07-19 22:52] LABS: PT 11.2 SEC (9.4-12.5); PTT 31 SEC (25-37)
--- NOTE | 2016-07-19 23:43 | NUR ---
PT NON-RESPONSIVE. SON AND DTR AT BEDSIDE. PT'S PRIMARY LANGUAGE IS SWEDISH. DTR IS POA, AND WANTS TO BE INFORMED OF CHANGES. THIS RN ASKED IF PT WOULD WANT AN FUSE CUTTER. DTR STATES NO. PT HAS NOT RECOGNIZED DTR FOR SEVERAL YEARS. NS WITH K INFUSING AT 150 ML PER HR. MULTIPLE ATTEMPTS TO DRAW LABS WITH PIVO. 2100 LABS HEMOLYSED. SECOND PIVO ON 2ND IV SITE. LABS SENT. NEXT BLOOD DRAW TO BE THREE HOURS FROM LAST. PT REMAINS TACHYCARDIC. B/P IN LOW 100'2.
[2016-07-20] VITALS: BP 90/46
--- NOTE | 2016-07-20 01:00 | NUR ---
PT REMAINS UNRESPONSIVE, WITHDRAWS DURING CARE. PUPILS 1MM,SLUGGISH RESPONSE. PT DOES NOT FOLLOW COMMAND. MANUAL BP 90/46. NSR 90'S. ABDOMEN SOFT, HYPOACTIVE BS. GAMBOA IN PLACE,MORENO UO NOTED. ON INSULIN GTT, ACCUXHECKS DONE Q 1HR. INSULIN GTT AT 10 UNITS. IVF CHANGED TO D51/2NS + 20MEQ KCL AT 150ML/H. AFEBRILE, ON UNASYN.
[2016-07-20 04:53] LABS: ABSOLUTE BASOPHIL COUNT 0.1 /CUMM (0.0-0.2); ABSOLUTE EOSINOPHIL COUNT 0 /CUMM (0.0-0.7); ABSOLUTE GRANULOCYTE CT 14.7 /CUMM (1.4-6.5); ABSOLUTE LYMPH COUNT 5.3 /CUMM (1.2-3.4); ABSOLUTE MONOCYTE COUNT 1.4 /CUMM (0.10-0.60); BASOPHIL % 0.3 % (0.0-2.0); EOSINOPHIL % 0 % (0-5); GRANULOCYTE % 68.6 % (42.2-75.2); HEMATOCRIT 41.9 % (37-47); MEAN CORPUSCULAR HGB 31.4 PG (27.0-31.0); MEAN CORPUSCULAR HGB CONC 33.2 G/DL (33.0-37.0); MEAN CORPUSCULAR VOLUME 94.5 FL (81.0-99.0); MEAN PLATELET VOLUME 9.2 FL (7.4-10.4); PLATELET COUNT 161 /CUMM (130-400); RBC DISTRIBUTION WIDTH 13.3 % (11.5-14.5); RED BLOOD CELL CT 4.44 /CUMM (4.20-5.40); WHITE BLOOD CELL COUNT 21.5 /CUMM (4.8-10.8)
--- NOTE | 2016-07-20 05:45 | NUR ---
PT MORE AWAKE, MOANING AND GROANING. PT STILL NOT FOLLOWING COMMAND. WITHDRAWS DURING CARE.
[2016-07-20 08:00] VITALS: BP 130/62
--- NOTE | 2016-07-20 08:15 | NUR ---
REC'D THE PT IN BED ALERT AND MOANING AT TIMES, PRIMARILY WITH ANY TYPE OF TACTILE STIMULATION. PT IS NONVERBAL AND RESISTS ANY MOVEMENT OF HER EXTREMITIES ESPECIALLY THE RUE. PT IS IN A ST PER THE INFECTIOUS WASTE TECHNICIAN- NO ECTOPY NOTED. TRISTAN BS ARE CLEAR BUT DIMINISHED, PT DOES NOT FOLLOW COMMANDS SO UNABLE TO GET HER TO TAKE A DEEP BREATH. O2 SAT IS 95% ON A 2LNC. ABD IS SOFT WITH NORMOACTIVE BOWEL SOUNDS. REMAINS NPO PENDING A SWALLOW EVALUATION. GAMBOA IN PLACE DRAINING CLEAR YELLOW URINE. CONTINUES ON THE INSULIN GTT AT 2U/HR. 08 FSG WAS 220-DR ROBERT CHOU NOTIFIED AND AT THIS TIME THE INSULIN GTT IS TO REMAIN AT 2U/HR. AWAITING INPUT FROM DR RICKS FROM ENDOCRINOLOGY.
--- NOTE | 2016-07-20 08:18 | PN- Resident CRCU ---
Subjective HPI/CRCU Issues: seen and examined this morning. She is lying in bed in distress. She is nonverbal, has baseline dementia. Blood pressure has been towards the lower side, she is satting in the 90s on 2 L of nasal cannula oxygen Insulin drip has been discontinued this morning, followed by 11 or 10 units twice a day and NovoLog every 4, endocrinology on board Sodium 155>>161>>159, repeat labs at 10 AM and 2 PM, to remain on D5W half- normal saline at 150 months per hour. Remains on Unasyn, CAT scan of the abdomen done yesterday showed evidence of bilateral pulmonary, patient to get chest CT today, will follow up results. 24 Hour Events: no acute Over night evemnts Objective Vital Signs & I&O Last 8 Hrs of Vitals and I&O: Laboratory Tests 07/20/16 0400: Anion Gap 13, Estimated GFR 49 L, Glucose 136 H, Calcium 8.8, Phosphorus 1.9 L, Magnesium 1.9, Total Bilirubin 0.6, AST 27, ALT 69 H, Troponin I 0.08, Albumin 3.5, CBC w Diff MAN DIFF ORDERED, RBC 4.44, MCV 94.5, MCH 31.4 H, RDW 13.3, MPV 9.2, Gran % 68.6, Lymphocytes % 24.8, Monocytes % 6.3, Eosinophils % 0 , Basophils % 0.3, Absolute Granulocytes 14.7 H, Segmented Neutrophils 59, Band Neutrophils 7 H, Absolute Lymphocytes 5.3 H, Lymphocytes 29, Monocytes 5, Absolute Monocytes 1.4 H, Absolute Eosinophils 0, Absolute Basophils 0.1, Platelet Estimate ADEQUATE, Normocytic RBCs VERIFIED, Normochromic RBCs VERIFIED , PUBS MCHC 33.2 07/20/16 0300: Troponin I Cancelled 07/20/16 0050: Anion Gap 15, Estimated GFR 37 L, Glucose 236 H, Calcium 8.5, Phosphorus 1.4 L, Magnesium 1.9, Total Bilirubin 0.6, AST 24, ALT 51, Albumin 3.3 L 07/19/16 2230: Anion Gap 20 H, Estimated GFR 28 L, Glucose 317 H, Calcium 8.6, Phosphorus 1.4 L, Magnesium 2.0, Total Bilirubin 0.6, AST 27, ALT 58 H, Troponin I 0.09, Albumin 3.7, PT 11.2, INR 1.07, APTT 31, CBC w Diff NO MAN DIFF REQ, RBC 4.70, MCV 94.8, MCH 31.0, RDW 13.7, MPV 9.4, Gran % 77.9 H, Lymphocytes % 18.5 L, Monocytes % 3.5, Eosinophils % 0, Basophils % 0.1, Absolute Granulocytes 14.0 H , Absolute Lymphocytes 3.3, Absolute Monocytes 0.6, Absolute Eosinophils 0, Absolute Basophils 0, PUBS MCHC 32.7 L 07/19/16 2100: Troponin I Cancelled 07/19/162099: Lactic Acid 7.7 H 07/19/16 2000: Sodium Cancelled, Potassium Cancelled, Chloride Cancelled, Carbon Dioxide Cancelled, Anion Gap Cancelled, BUN Cancelled, Creatinine Cancelled, Glucose Cancelled, Calcium Cancelled, Phosphorus Cancelled, Magnesium Cancelled, Total Bilirubin Cancelled, AST Cancelled, ALT Cancelled, Albumin Cancelled 07/19/16 1635: Lactic Acid 7.1 H 07/19/16 1635: Anion Gap 24 H, Estimated GFR 19 L, Glucose 692 *H, Calcium 7.8 L, Phosphorus 4.1, Magnesium 1.9, Total Bilirubin 0.6, AST 33, ALT 50, Albumin 3.2 L 07/19/16 1610: pH 7.31 L, pCO2 26 L, pO2 77 L, HCO3 13 L, ABG O2 Sat (Measured) 94.0 L, P- 50 (Temp Corrected) N, Carboxyhemoglobin 0.3 L, O2 Concentration % 2L, Temperature 99.3, O2 Delivery Method NC, Phlebotomy Draw Site RIGHT RADIAL 07/19/16 1557: Lactic Acid Cancelled 07/19/16 1310: Anion Gap 34 H, Estimated GFR 10 L, BUN/Creatinine Ratio 9.8, Glucose 1103 *H, Hemoglobin A1c Pending, Serum Osmolality 389 H, Lactic Acid 8.3 H, Calcium 9.5 , Total Bilirubin 0.9, AST 28, ALT 67 H, Alkaline Phosphatase 82, Troponin I 0.14 *H, Total Protein 7.6, Albumin 4.3, Globulin 3.3, Albumin/Globulin Ratio 1.3, Amylase 131 H, Lipase 161, TSH 0.312, Free T4 2.76 H, CBC w Diff MAN DIFF ORDERED, RBC 4.87, MCV 99.8 H, MCH 31.4 H, RDW 14.0, MPV 10.2, Gran % 82.8 H, Lymphocytes % 7.6 L, Monocytes % 9.5 H, Eosinophils % 0, Basophils % 0.1, Absolute Granulocytes 21.0 H, Segmented Neutrophils 72, Band Neutrophils 13 H, Absolute Lymphocytes 1.9, Lymphocytes 11 L, Monocytes 3, Absolute Monocytes 2.4 H, Absolute Eosinophils 0, Basophils 1, Absolute Basophils 0, Normocytic RBCs VERIFIED, Normochromic RBCs VERIFIED, PUBS MCHC 31.4 L, Valproic Acid 14.9 L, Acetone Level POSITIVE AT 1:4 DIL, Urine Color YEL, Urine Clarity CLDY H, Urine pH 5.0, Ur Specific [place] 1.025, Urine Protein 30 H, Urine Ketones TRACE H, Urine Nitrite NEG, Urine Bilirubin NEG@ICTO, Urine Urobilinogen 1.0, Ur Leukocyte Esterase NEG, Ur Microscopic SEDIMENT EXAMINED, Urine WBC RARE, Ur Epithelial Cells MOD H, Urine Bacteria MANY H, Urine Hemoglobin NEG, Urine Glucose >=1000 H 07/19/16 1215: Bicarbonate Actual 13 L, Mixed VBG pH 7.22 L, Mixed VBG pCO2 33 L, Mixed VBG O2 Saturation 45, P-50 (Temp Corrected) Y, Carboxyhemoglobin 0.4 L, O2 Concentration % 100, Temperature 101.8 H, O2 Delivery Method NRB, Phlebotomy Draw Site R-HAND Microbiology 07/19 2350 URINE ROUT: Urine Culture - RECD 07/19 1844 UPPER RESP: Surveillance Culture - RECD 07/19 1845 GI: Surveillance Culture - RECD 07/19 1524 LOWER RESP: Respiratory Culture - COLB 07/19 1524 LOWER RESP: Gram Stain - COLB 07/19 1458 BLOOD: Blood Culture - RECD 07/19 1315 NASOPHARYN: Influenza Virus A & B Rapid Smear - COMP 07/19 1310 URINE ROUT: Urine Culture - RES 07/19 1310 BLOOD: Blood Culture - RECD Vital Signs Date Time Temp Pulse Resp B/P Pulse O2 O2 Flow FiO2 Ox Delivery Rate 07/20 0400 95 Nasal 2.0L Cannula 07/20 0000 94 Nasal 2.0L Cannula 07/20 0000 97.1 98 20 90/46 94 Nasal 2.0L Cannula 07/20 1999 96 Nasal 2.0L Cannula 07/19 1930 96 Nasal 2.0L Cannula 07/19 1749 99.9 104 22 112/55 96 Nasal 2.0L Cannula 07/19 1623 97 Nasal 2.0L Cannula 07/19 1605 99.5 100 22 121/57 96 Nasal 2.0L Cannula 07/19 1530 99.8 101 20 137/60 92 Room Air Room Air 07/19 1431 99.3 100 22 107/53 100 Non 100% ReBreather 07/19 1405 100.0 106 24 97/47 100 Non 100% ReBreather 07/19 1328 103.3 117 26 92/53 95 Non 100% ReBreather 07/19 1310 102.2 07/19 1256 90 Non 100% ReBreather 07/19 1244 100.9 139 24 81/51 90 Non 100% ReBreather Intake & Output 07/20 1600 07/20 0800 07/20 0000 Intake Total 1748 793 Output Total 355 450 Balance 1393 343 Intake, IV 1748 793 Intake, Oral 0 Output, Urine 355 450 Patient 71.668 kg Weight Exam General Appearance: well developed/nourished, lethargic, mild distress Head: atraumatic, normal appearance Respiratory: normal breath sounds Cardiovascular: regular rate/rhythm Gastrointestinal: normal bowel sounds Extremities: normal inspection Nutrition Nutrition: NPO Current Medications: Current Medications Sig/Bess Start time Last Medication Dose Route Stop Time Status Admin Acetaminophen 1,000 MG Q6P PRN 07/19 1815 AC IV Ampicillin Sodium/ 3,000 MG Q12H 07/20 0300 AC 07/20 Sulbactam Sodium IV 0220 Sodium Chloride 100 ML Ampicillin Sodium/ 3,000 MG Q12 07/19 2200 DC Sulbactam Sodium IV Sodium Chloride 100 ML Ampicillin Sodium/ 3,000 MG ONCE ONE 07/19 1445 DC 07/19 Sulbactam Sodium IV 07/19 1514 1503 Sodium Chloride 100 ML Ampicillin Sodium/ 0 .STK-MED ONE 07/19 1445 DC Sulbactam Sodium .ROUTE Insulin Aspart 0 Q4 07/20 0900 AC 07/20 MO 0912 Insulin Detemir 10 UNITS BID 07/20 0900 AC 07/20 MO 0913 Insulin Human Regular 100 UNIT Q24H 07/19 1400 DC 07/20 Sodium Chloride 100 ML IV 0021 Insulin Human Regular 8 UNITS ONCE ONE 07/19 1400 DC 07/19 IV 07/19 1401 1428 Pantoprazole Sodium 40 MG DAILY 07/20 1000 CAN IV Pantoprazole Sodium 0 .STK-MED ONE 07/19 1739 DC IV Pantoprazole Sodium 40 MG DAILY 07/19 1700 AC 07/20 IV 0918 Patient Medication 1 UNIT ONE NR 07/19 1700 DC Teaching ED 07/19 1730 Potassium Chloride 10 MEQ Q1H 07/20 0645 DC IV 07/20 0746 Potassium Chloride 20 MEQ Q6H 07/19 2330 AC 07/20 Dextrose/Sodium 1,000 ML IV 0527 Chloride Potassium Chloride 150 MEQ Q8 07/19 2318 DC IV Potassium Chloride 40 MEQ Q6H 07/19 1600 DC 07/19 Sodium Chloride 1,000 ML IV 1640 Potassium Chloride 40 MEQ 150 MLS/HR 07/19 1545 CAN IV Potassium Phosphate 15 mMol ONE ONE 07/20 0830 AC 07/20 Dextrose/Water 250 ML IV 07/20 1233 1034 Sodium Bicarbonate 50 MEQ ONCE ONE 07/19 1400 DC 07/19 IV 07/19 1401 1428 Sodium Bicarbonate 150 MEQ Q8H 07/19 1400 DC 07/19 Dextrose/Water 1,000 ML IV 1428 Sodium Chloride 1,000 ML BOLUS ONE 07/19 1400 DC 07/19 IV 07/19 1459 1428 Sodium Chloride 1,000 ML BOLUS ONE 07/19 1400 DC IV 07/19 1459 Sodium Chloride 1,000 ML BOLUS ONE 07/19 1330 DC 07/19 IV 07/19 1429 1338 Sodium Chloride 1,000 ML BOLUS ONE 07/19 1300 DC 07/19 IV 07/19 1359 1308 Impression/Plan Impression/Problem List Impression: 75-year-old female with PMH anxiety, depression, alzheimer's dementia, baseline nonverbal and unable to recognize people, hypothyroidism, was brought in by ambulance from [facility]) for glucose > 1000, persistent fever, and unresponsiveness. Patient admitted to ICU for hyperosmolar hyperglycemic state with mild ketoacidosis and lactic acidosis, with fever up to 103.3, WBC 25.4 with 13 bands , most likely due to pneumonia as suggested by imaging. Troponin also found to be elevated, most likely due to demand ischemia, but cannot rule out ischemia as the stressor. She has decreased PO intake over the past 2-3 days [employer], with BRANDON noted, with physical exam significant for dry mucous membranes despite having received 4L NS. Problem list: # Hyperosmolar hyperglycemic state with mild ketoacidosis and lactic acidosis # Severe sepsis, hypotension, most likely due to pneumonia # BRANDON most likely due to poor PO intake (prerenal) # Positive troponin most likely demand ischemia # Hyperosmolar hyperglycemic state with mild ketoacidosis and lactic acidosis - No hx of DM in pt or family * On 40meq KCL in NS at 150ml/hour, and insulin drip at 8. * Appreciate endocrinology input, Dr. Mccracken * F/u hba1c, tsh, ft4 * insulin drip is continued, switched to NovoLog and Levemir 10 units twice a day. He been on IV to D5 half-normal saline + 20 milliequivalents KCl at 150 mL per hour. Will repeat labs at 10 AM and 2 PM. * IV protonix started # Severe sepsis most likely due to PNA - Flu negative - CT: Bilateral lower lobe airspace consolidations, right greater than left, which likely represent pneumonia. - The gallbladder is distended and hyperdense without pericholecystic fat stranding. This could represent stones versus sludge. Right upper quadrant ultrasound could be considered to help further evaluate if clinically indicated. * Follow pancx * 1XUnasyn given in ED * Continue high dose unasyn for possible aspiration PNA, consider HCAP as well * Abdominal CT scan yesterday showed lower lobe airspace consolidation, likely suggestive of pneumonia. Patient to have CT chest wo contrast today, follow-up. * F/U RUQ US # BRANDON most likely due to poor PO intake (prerenal) - Multiple hypodensities throughout the bilateral kidneys. Calcifications associated with a right kidney lower pole hypodense lesion. These could represent complex cysts; however, renal cell carcinoma cannot be excluded and followup ultrasound is recommended to help further evaluate. Nonobstructive right renal stone. * Creatinine upon presentation 4.3, improved to 1.1. * Continue Aggressive IVF, follow-up repeat labs. * Consider renal consult if does not improve # Positive troponin (most likely demand ischemia, tachy up to 140, fever) - Trop 0.14 * Serial Ekg and trops differing acute findings * Consider cardio consult . # Home meds Levothyroxine Lisinopril 5 Vaproic Trazodone 100 Quetiapine 50 Senna Miralax Diet: NPO DVT ppx: mech and pharm DNR/DNI Problem List: 1. DKA (diabetic ketoacidoses) 2. Acute renal failure Pain Ratin Tomorrow's Labs & Rationales: icu bundle CBC Plan DVT/Prophylaxis: mechanical
--- NOTE | 2016-07-20 08:56 | PN- Diabetes ---
Assessment/Plan Assessment: Patient is more alert this morning. On an insulin drip at 2 units per hour and D5 half-normal saline with 20 mEq of KCl at 150 mL per hour. Still has a metabolic encephalopathy and her sodium is high. Baseline she has dementia and is nonverbal Her recent labs show that serum sodium is elevated at 159, BUN 26, creatinine 1.1, potassium 3.6. Plan: Suggest that we can switch the patient to subcutaneous insulin at this time. Suggest begin Levemir 10 units twice a day the first dose stat. Also sliding- scale NovoLog every 4 hours. Sliding-scale NovoLog every 4 hours should be less than 150 give no insulin, 151-200 give 2 units NovoLog, 201-250 give 4 units NovoLog, 251-300 give 5 units NovoLog, 301-350 give 6 units NovoLog, 351-400 give 7 units NovoLog. An hour after the first dose of Levemir and NovoLog the insulin drip could be shut off. We need to keep glucose in the IV so as to not give unopposed insulin. I would continue to run D5 half normal saline +20 mEq KCl at 150 mL per hour. We should repeat the patient's labs 10 AM this morning and 2 PM this afternoon. The best way to correct her serum sodium would be to give free water through the GI tract. She is presently nothing by mouth Eventually a swallowing evaluation will need to be done. However if the serum sodium is not improving satisfactorily and she cannot pass the swallowing evaluation, then we could consider a Steele feed tube through which we could give free water Subjective Subjective: Cannot answer questions Objective Last 24 Hrs of Vital Signs/I&O Vital Signs Date Time Temp Pulse Resp B/P Pulse O2 O2 Flow FiO2 Ox Delivery Rate 07/20 0400 95 Nasal 2.0L Cannula 07/20 0000 94 Nasal 2.0L Cannula 07/20 0000 97.1 98 20 90/46 94 Nasal 2.0L Cannula 07/20 1999 96 Nasal 2.0L Cannula 07/19 1930 96 Nasal 2.0L Cannula 07/19 1749 99.9 104 22 112/55 96 Nasal 2.0L Cannula 07/19 1623 97 Nasal 2.0L Cannula 07/19 1605 99.5 100 22 121/57 96 Nasal 2.0L Cannula 07/19 1530 99.8 101 20 137/60 92 Room Air Room Air 07/19 1431 99.3 100 22 107/53 100 Non 100% ReBreather 07/19 1405 100.0 106 24 97/47 100 Non 100% ReBreather 07/19 1328 103.3 117 26 92/53 95 Non 100% ReBreather 07/19 1310 102.2 07/19 1256 90 Non 100% ReBreather 07/19 1244 100.9 139 24 81/51 90 Non 100% ReBreather Intake & Output 07/20 1600 07/20 0807/20 0000 Intake Total 1748 793 Output Total 355 450 Balance 1393 343 Intake, IV 1748 793 Intake, Oral 0 Output, Urine 355 450 Patient 158 lb Weight Vital Signs Date Time Temp Pulse Resp B/P Pulse O2 O2 Flow FiO2 Ox Delivery Rate 07/20 0400 95 Nasal 2.0L Cannula 07/20 0000 94 Nasal 2.0L Cannula 07/20 0000 97.1 98 20 90/46 94 Nasal 2.0L Cannula 07/19 2000 96 Nasal 2.0L Cannula 07/19 1930 96 Nasal 2.0L Cannula 07/19 1749 99.9 104 22 112/55 96 Nasal 2.0L Cannula 07/19 1623 97 Nasal 2.0L Cannula 07/19 1605 99.5 100 22 121/57 96 Nasal 2.0L Cannula 07/19 1530 99.8 101 20 137/60 92 Room Air Room Air 07/19 1431 99.3 100 22 107/53 100 Non 100% ReBreather 07/19 1405 100.0 106 24 97/47 100 Non 100% ReBreather 07/19 1328 103.3 117 26 92/53 95 Non 100% ReBreather 07/19 1310 102.2 07/19 1256 90 Non 100% ReBreather 07/19 1244 100.9 139 24 81/51 90 Non 100% ReBreather Intake & Output 07/20 1600 07/20 0807/20 0000 Intake Total 1748 793 Output Total 355 450 Balance 1393 343 Intake, IV 1748 793 Intake, Oral 0 Output, Urine 355 450 Patient 158 lb Weight Physical Exam General Appearance: alert, awake, not pay attention and does not follow commands Head: normal appearance Neck: normal inspection Respiratory: normal breath sounds Cardiovascular: regular rate/rhythm Abdomen: normal bowel sounds Extremities: normal inspection Current Medications: Current Medications Sig/Bess Start time Last Medication Dose Route Stop Time Status Admin Acetaminophen 1,000 MG Q6P PRN 07/19 1815 AC IV Ampicillin Sodium/ 3,000 MG Q12H 07/20 0300 AC 07/20 Sulbactam Sodium IV 0220 Sodium Chloride 100 ML Ampicillin Sodium/ 3,000 MG Q12 07/19 2200 DC Sulbactam Sodium IV Sodium Chloride 100 ML Ampicillin Sodium/ 3,000 MG ONCE ONE 07/19 1445 DC 07/19 Sulbactam Sodium IV 07/19 1514 1503 Sodium Chloride 100 ML Ampicillin Sodium/ 0 .STK-MED ONE 07/19 1445 DC Sulbactam Sodium .ROUTE Insulin Human Regular 100 UNIT Q24H 07/19 1400 AC 07/20 Sodium Chloride 100 ML IV 0021 Insulin Human Regular 8 UNITS ONCE ONE 07/19 1400 DC 07/19 IV 07/19 1401 1428 Pantoprazole Sodium 40 MG DAILY 07/20 1000 CAN IV Pantoprazole Sodium 0 .STK-MED ONE 07/19 1739 DC IV Pantoprazole Sodium 40 MG DAILY 07/19 1700 AC 07/19 IV 1745 Patient Medication 1 UNIT ONE NR 07/19 1700 DC Teaching ED 07/19 1730 Potassium Chloride 10 MEQ Q1H 07/20 0645 DC IV 07/20 0746 Potassium Chloride 20 MEQ Q6H 07/19 2330 AC 07/20 Dextrose/Sodium 1,000 ML IV 0527 Chloride Potassium Chloride 150 MEQ Q8 07/19 2318 DC IV Potassium Chloride 40 MEQ Q6H 07/19 1600 DC 07/19 Sodium Chloride 1,000 ML IV 1640 Potassium Chloride 40 MEQ 150 MLS/HR 07/19 1545 CAN IV Potassium Phosphate 15 mMol ONE ONE 07/20 0830 AC Dextrose/Water 250 ML IV 07/20 1233 Sodium Bicarbonate 50 MEQ ONCE ONE 07/19 1400 DC 07/19 IV 07/19 1401 1428 Sodium Bicarbonate 150 MEQ Q8H 07/19 1400 DC 07/19 Dextrose/Water 1,000 ML IV 1428 Sodium Chloride 1,000 ML BOLUS ONE 07/19 1400 DC 07/19 IV 07/19 1459 1428 Sodium Chloride 1,000 ML BOLUS ONE 07/19 1400 DC IV 07/19 1459 Sodium Chloride 1,000 ML BOLUS ONE 07/19 1330 DC 07/19 IV 07/19 1429 1338 Sodium Chloride 1,000 ML BOLUS ONE 07/19 1300 DC 07/19 IV 07/19 1359 1308 Findings Pertinent Lab/Neri Results: Laboratory Tests 07/20 07/20 07/20 0400 0300 0050 Chemistry Sodium (137 - 145 mmol/L) 159 *H 160 *H Potassium (3.5 - 5.1 mmol/L) 3.6 3.6 Chloride (98 - 107 mmol/L) 119 H 122 H Carbon Dioxide (22 - 30 mmol/L) 27 23 Anion Gap (5 - 16) 13 15 BUN (7 - 17 mg/dL) 26 H 28 H Creatinine (0.5 - 1.0 mg/dL) 1.1 H 1.4 H Estimated GFR (>60 ml/min) 49 L 37 L Glucose (65 - 99 mg/dL) 136 H 236 H Calcium (8.4 - 10.2 mg/dL) 8.8 8.5 Phosphorus (2.5 - 4.5 mg/dL) 1.9 L 1.4 L Magnesium (1.6 - 2.3 mg/dL) 1.9 1.9 Total Bilirubin (0.2 - 1.3 mg/dL) 0.6 0.6 AST (14 - 36 U/L) 27 24 ALT (9 - 52 U/L) 69 H 51 Troponin I (< 0.11 ng/ml) 0.08 Cancelled Albumin (3.5 - 5.0 g/dL) 3.5 3.3 L Hematology CBC w Diff MAN DIFF ORDERED WBC (4.8 - 10.8 /CUMM) 21.5 H RBC (4.20 - 5.40 /CUMM) 4.44 Hgb (12.0 - 16.0 G/DL) 13.9 Hct (37 - 47 %) 41.9 MCV (81.0 - 99.0 FL) 94.5 MCH (27.0 - 31.0 PG) 31.4 H RDW (11.5 - 14.5 %) 13.3 Plt Count (130 - 400 /CUMM) 161 MPV (7.4 - 10.4 FL) 9.2 Gran % (42.2 - 75.2 %) 68.6 Lymphocytes % (20.5 - 51.1 %) 24.8 Monocytes % (1.7 - 9.3 %) 6.3 Eosinophils % (0 - 5 %) 0 Basophils % (0.0 - 2.0 %) 0.3 Absolute Granulocytes (1.4 - 6.5 /CUMM) 14.7 H Segmented Neutrophils (42.2 - 75.2 %) 59 Band Neutrophils (0.0 - 5.0 %) 7 H Absolute Lymphocytes (1.2 - 3.4 /CUMM) 5.3 H Lymphocytes (20.5 - 51.1 %) 29 Monocytes (1.7 - 9.3 %) 5 Absolute Monocytes (0.10 - 0.60 /CUMM) 1.4 H Absolute Eosinophils (0.0 - 0.7 /CUMM) 0 Absolute Basophils (0.0 - 0.2 /CUMM) 0.1 Platelet Estimate (ADEQUATE) ADEQUATE Normocytic RBCs VERIFIED Normochromic RBCs VERIFIED PUBS MCHC (33.0 - 37.0 G/DL) 33.2 07/19 07/19 07/19 2230 2100 2100 Chemistry Sodium (137 - 145 mmol/L) 161 *H Potassium (3.5 - 5.1 mmol/L) 3.6 Chloride (98 - 107 mmol/L) 120 H Carbon Dioxide (22 - 30 mmol/L) 21 L Anion Gap (5 - 16) 20 H BUN (7 - 17 mg/dL) 28 H Creatinine (0.5 - 1.0 mg/dL) 1.8 H Estimated GFR (>60 ml/min) 28 L Glucose (65 - 99 mg/dL) 317 H Lactic Acid (0.7 - 2.1 mmol/L) 7.7 H Calcium (8.4 - 10.2 mg/dL) 8.6 Phosphorus (2.5 - 4.5 mg/dL) 1.4 L Magnesium (1.6 - 2.3 mg/dL) 2.0 Total Bilirubin (0.2 - 1.3 mg/dL) 0.6 AST (14 - 36 U/L) 27 ALT (9 - 52 U/L) 58 H Troponin I (< 0.11 ng/ml) 0.09 Cancelled Albumin (3.5 - 5.0 g/dL) 3.7 Coagulation PT (9.4 - 12.5 SEC) 11.2 INR (0.90 - 1.19) 1.07 APTT (25 - 37 SEC) 31 Hematology CBC w Diff NO MAN DIFF REQ WBC (4.8 - 10.8 /CUMM) 17.9 H RBC (4.20 - 5.40 /CUMM) 4.70 Hgb (12.0 - 16.0 G/DL) 14.6 Hct (37 - 47 %) 44.6 MCV (81.0 - 99.0 FL) 94.8 MCH (27.0 - 31.0 PG) 31.0 RDW (11.5 - 14.5 %) 13.7 Plt Count (130 - 400 /CUMM) 145 MPV (7.4 - 10.4 FL) 9.4 Gran % (42.2 - 75.2 %) 77.9 H Lymphocytes % (20.5 - 51.1 %) 18.5 L Monocytes % (1.7 - 9.3 %) 3.5 Eosinophils % (0 - 5 %) 0 Basophils % (0.0 - 2.0 %) 0.1 Absolute Granulocytes (1.4 - 6.5 /CUMM) 14.0 H Absolute Lymphocytes (1.2 - 3.4 /CUMM) 3.3 Absolute Monocytes (0.10 - 0.60 /CUMM) 0.6 Absolute Eosinophils (0.0 - 0.7 /CUMM) 0 Absolute Basophils (0.0 - 0.2 /CUMM) 0 PUBS MCHC (33.0 - 37.0 G/DL) 32.7 L 07/19 1635 1635 1610 Blood Gas pH (7.35 - 7.45 PH) 7.31 L pCO2 (35 - 45 TORR) 26 L pO2 (80 - 100 TORR) 77 L HCO3 (21 - 28 MEQ/L) 13 L ABG O2 Sat (Measured) (>96.0 %) 94.0 L P-50 (Temp Corrected) N Carboxyhemoglobin (1.5 - 5.0 %) 0.3 L O2 Concentration % 2L Temperature (97.0 - 100.0 FARH) 99.3 O2 Delivery Method NC Chemistry Sodium (137 - 145 mmol/L) Cancelled 155 H Potassium (3.5 - 5.1 mmol/L) Cancelled 3.5 Chloride (98 - 107 mmol/L) Cancelled 118 H Carbon Dioxide (22 - 30 mmol/L) Cancelled 13 L Anion Gap (5 - 16) Cancelled 24 H BUN (7 - 17 mg/dL) Cancelled 34 H Creatinine (0.5 - 1.0 mg/dL) Cancelled 2.5 H Estimated GFR (>60 ml/min) 19 L Glucose (65 - 99 mg/dL) Cancelled 692 *H Lactic Acid (0.7 - 2.1 mmol/L) 7.1 H Calcium (8.4 - 10.2 mg/dL) Cancelled 7.8 L Phosphorus (2.5 - 4.5 mg/dL) Cancelled 4.1 Magnesium (1.6 - 2.3 mg/dL) Cancelled 1.9 Total Bilirubin (0.2 - 1.3 mg/dL) Cancelled 0.6 AST (14 - 36 U/L) Cancelled 33 ALT (9 - 52 U/L) Cancelled 50 Albumin (3.5 - 5.0 g/dL) Cancelled 3.2 L Miscellaneous Phlebotomy Draw Site RIGHT RADIAL 07/19 07/19 1557 1310 Chemistry Sodium (137 - 145 mmol/L) 147 H Potassium (3.5 - 5.1 mmol/L) 5.1 Chloride (98 - 107 mmol/L) 104 Carbon Dioxide (22 - 30 mmol/L) 9 *L Anion Gap (5 - 16) 34 H BUN (7 - 17 mg/dL) 42 H Creatinine (0.5 - 1.0 mg/dL) 4.3 H Estimated GFR (>60 ml/min) 10 L BUN/Creatinine Ratio (7 - 25 %) 9.8 Glucose (65 - 99 mg/dL) 1103 *H Hemoglobin A1c (4.2 - 5.8 %) Pending Serum Osmolality (285 - 295 MOSM/KG) 389 H Lactic Acid (0.7 - 2.1 mmol/L) Cancelled 8.3 H Calcium (8.4 - 10.2 mg/dL) 9.5 Total Bilirubin (0.2 - 1.3 mg/dL) 0.9 AST (14 - 36 U/L) 28 ALT (9 - 52 U/L) 67 H Alkaline Phosphatase (<127 U/L) 82 Troponin I (< 0.11 ng/ml) 0.14 *H Total Protein (6.3 - 8.2 g/dL) 7.6 Albumin (3.5 - 5.0 g/dL) 4.3 Globulin (1.9 - 4.2 gm/dL) 3.3 Albumin/Globulin Ratio (1.1 - 2.2 %) 1.3 Amylase (30 - 110 U/L) 131 H Lipase (23 - 300 U/L) 161 TSH (0.270 - 4.200 uIU/mL) 0.312 Free T4 (0.78 - 2.44 ng/dL) 2.76 H Hematology CBC w Diff MAN DIFF ORDERED WBC (4.8 - 10.8 /CUMM) 25.4 H RBC (4.20 - 5.40 /CUMM) 4.87 Hgb (12.0 - 16.0 G/DL) 15.3 Hct (37 - 47 %) 48.6 H MCV (81.0 - 99.0 FL) 99.8 H MCH (27.0 - 31.0 PG) 31.4 H RDW (11.5 - 14.5 %) 14.0 Plt Count (130 - 400 /CUMM) 223 MPV (7.4 - 10.4 FL) 10.2 Gran % (42.2 - 75.2 %) 82.8 H Lymphocytes % (20.5 - 51.1 %) 7.6 L Monocytes % (1.7 - 9.3 %) 9.5 H Eosinophils % (0 - 5 %) 0 Basophils % (0.0 - 2.0 %) 0.1 Absolute Granulocytes (1.4 - 6.5 /CUMM) 21.0 H Segmented Neutrophils (42.2 - 75.2 %) 72 Band Neutrophils (0.0 - 5.0 %) 13 H Absolute Lymphocytes (1.2 - 3.4 /CUMM) 1.9 Lymphocytes (20.5 - 51.1 %) 11 L Monocytes (1.7 - 9.3 %) 3 Absolute Monocytes (0.10 - 0.60 /CUMM) 2.4 H Absolute Eosinophils (0.0 - 0.7 /CUMM) 0 Basophils (0.0 - 2.0 %) 1 Absolute Basophils (0.0 - 0.2 /CUMM) 0 Normocytic RBCs VERIFIED Normochromic RBCs VERIFIED PUBS MCHC (33.0 - 37.0 G/DL) 31.4 L Toxicology Valproic Acid (50 - 120 ug/mL) 14.9 L Acetone Level (NEGATIVE) POSITIVE AT 1:4 DIL Urines Urine Color (YEL,AMB,STR) YEL Urine Clarity (CLEAR) CLDY H Urine pH (5.0 - 8.0) 5.0 Ur Specific [place] (1.001 - 1.035) 1.025 Urine Protein (NEG,<30 MG/DL) 30 H Urine Ketones (NEG) TRACE H Urine Nitrite (NEG) NEG Urine Bilirubin (NEG) NEG@ICTO Urine Urobilinogen (0.1 - 1.0 EU/dl) 1.0 Ur Leukocyte Esterase (NEG) NEG Ur Microscopic SEDIMENT EXAMINED Urine WBC (0 - 2 /HPF) RARE Ur Epithelial Cells (NONE,FEW) MOD H Urine Bacteria (NEG/NONE) MANY H Urine Hemoglobin (NEG) NEG Urine Glucose (N MG/DL) >=1000 H 07/19 07/19 1215 UNK Blood Gas Bicarbonate Actual (22 - 26 MEQ/L) 13 L Mixed VBG pH (7.31 - 7.41 PH) 7.22 L Mixed VBG pCO2 (41 - 51 TORR) 33 L Mixed VBG O2 Saturation (35 - 45 TORR) 45 P-50 (Temp Corrected) Y Carboxyhemoglobin (1.5 - 5.0 %) 0.4 L O2 Concentration % 100 Temperature (97.0 - 100.0 FARH) 101.8 H O2 Delivery Method NRB Chemistry Sodium Cancelled Potassium Cancelled Chloride Cancelled Carbon Dioxide Cancelled Anion Gap Cancelled BUN Cancelled Creatinine Cancelled Glucose Cancelled Calcium Cancelled Phosphorus Cancelled Magnesium Cancelled Total Bilirubin Cancelled AST Cancelled ALT Cancelled Albumin Cancelled Miscellaneous Phlebotomy Draw Site R-HAND
--- NOTE | 2016-07-20 11:33 | PN- CRCU ---
Subjective HPI/Critical Care Issues: More alert today Slowly improving Blood glucose has improved Continues to have lactic acidosis which needs to be checked On insulin drip and D5 half-normal saline with 20 mEq of potassium She has dementia and nonverbal sodium is 159 BUN 26 creatinine down to 1.1 from 4 potassium is stable. Objective Current Medications: Current Medications Sig/Bess Start time Last Medication Dose Route Stop Time Status Admin Acetaminophen 1,000 MG Q6P PRN 07/19 1815 AC IV Ampicillin Sodium/ 3,000 MG Q12H 07/20 0300 AC 07/20 Sulbactam Sodium IV 0220 Sodium Chloride 100 ML Ampicillin Sodium/ 3,000 MG Q12 07/19 2200 DC Sulbactam Sodium IV Sodium Chloride 100 ML Ampicillin Sodium/ 3,000 MG ONCE ONE 07/19 1445 DC 07/19 Sulbactam Sodium IV 07/19 1514 1503 Sodium Chloride 100 ML Ampicillin Sodium/ 0 .STK-MED ONE 07/19 1445 DC Sulbactam Sodium .ROUTE Insulin Aspart 0 Q4 07/20 0900 07/20 SC 0912 Insulin Detemir 10 UNITS BID 07/20 0900 AC 07/20 SC 0913 Insulin Human Regular 100 UNIT Q24H 07/19 1400 DC 07/20 Sodium Chloride 100 ML IV 0021 Insulin Human Regular 8 UNITS ONCE ONE 07/19 1400 DC 07/19 IV 07/19 1401 1428 Pantoprazole Sodium 40 MG DAILY 07/20 1000 CAN IV Pantoprazole Sodium 0 .STK-MED ONE 07/19 1739 DC IV Pantoprazole Sodium 40 MG DAILY 07/19 1700 AC 07/20 IV 0918 Patient Medication 1 UNIT ONE NR 07/19 1700 DC Teaching ED 07/19 1730 Potassium Chloride 10 MEQ Q1H 07/20 0645 DC IV 07/20 0746 Potassium Chloride 20 MEQ Q6H 07/19 2330 AC 07/20 Dextrose/Sodium 1,000 ML IV 0527 Chloride Potassium Chloride 150 MEQ Q8 07/19 2318 DC IV Potassium Chloride 40 MEQ Q6H 07/19 1600 DC 07/19 Sodium Chloride 1,000 ML IV 1640 Potassium Chloride 40 MEQ 150 MLS/HR 07/19 1545 CAN IV Potassium Phosphate 15 mMol ONE ONE 07/20 0830 AC 07/20 Dextrose/Water 250 ML IV 07/20 1233 1034 Sodium Bicarbonate 50 MEQ ONCE ONE 07/19 1400 DC 07/19 IV 07/19 1401 1428 Sodium Bicarbonate 150 MEQ Q8H 07/19 1400 DC 07/19 Dextrose/Water 1,000 ML IV 1428 Sodium Chloride 1,000 ML BOLUS ONE 07/19 1400 DC 07/19 IV 07/19 1459 1428 Sodium Chloride 1,000 ML BOLUS ONE 07/19 1400 DC IV 07/19 1459 Sodium Chloride 1,000 ML BOLUS ONE 07/19 1330 DC 07/19 IV 07/19 1429 1338 Sodium Chloride 1,000 ML BOLUS ONE 07/19 1300 DC 07/19 IV 07/19 1359 1308 Vital Signs & I&O Last 24 Hrs of Vitals and I&O: Vital Signs Date Time Temp Pulse Resp B/P Pulse O2 O2 Flow FiO2 Ox Delivery Rate 07/20 0400 95 Nasal 2.0L Cannula 07/20 0000 94 Nasal 2.0L Cannula 07/20 0000 97.1 98 20 90/46 94 Nasal 2.0L Cannula 07/19 2000 96 Nasal 2.0L Cannula 07/19 1930 96 Nasal 2.0L Cannula 07/19 1749 99.9 104 22 112/55 96 Nasal 2.0L Cannula 07/19 1623 97 Nasal 2.0L Cannula 07/19 1605 99.5 100 22 121/57 96 Nasal 2.0L Cannula 07/19 1530 99.8 101 20 137/60 92 Room Air Room Air 07/19 1431 99.3 100 22 107/53 100 Non 100% ReBreather 07/19 1405 100.0 106 24 97/47 100 Non 100% ReBreather 07/19 1328 103.3 117 26 92/53 95 Non 100% ReBreather 07/19 1310 102.2 07/19 1256 90 Non 100% ReBreather 07/19 1244 100.9 139 24 81/51 90 Non 100% ReBreather Intake & Output 07/20 1600 07/20 0800 07/20 0000 Intake Total 1748 793 Output Total 355 450 Balance 1393 343 Intake, IV 1748 793 Intake, Oral 0 Output, Urine 355 450 Patient 158 lb Weight Laboratory Tests 07/20 07/20 07/20 0400 0300 0050 Chemistry Sodium (137 - 145 mmol/L) 159 *H 160 *H Potassium (3.5 - 5.1 mmol/L) 3.6 3.6 Chloride (98 - 107 mmol/L) 119 H 122 H Carbon Dioxide (22 - 30 mmol/L) 27 23 Anion Gap (5 - 16) 13 15 BUN (7 - 17 mg/dL) 26 H 28 H Creatinine (0.5 - 1.0 mg/dL) 1.1 H 1.4 H Estimated GFR (>60 ml/min) 49 L 37 L Glucose (65 - 99 mg/dL) 136 H 236 H Calcium (8.4 - 10.2 mg/dL) 8.8 8.5 Phosphorus (2.5 - 4.5 mg/dL) 1.9 L 1.4 L Magnesium (1.6 - 2.3 mg/dL) 1.9 1.9 Total Bilirubin (0.2 - 1.3 mg/dL) 0.6 0.6 AST (14 - 36 U/L) 27 24 ALT (9 - 52 U/L) 69 H 51 Troponin I (< 0.11 ng/ml) 0.08 Cancelled Albumin (3.5 - 5.0 g/dL) 3.5 3.3 L Hematology CBC w Diff MAN DIFF ORDERED WBC (4.8 - 10.8 /CUMM) 21.5 H RBC (4.20 - 5.40 /CUMM) 4.44 Hgb (12.0 - 16.0 G/DL) 13.9 Hct (37 - 47 %) 41.9 MCV (81.0 - 99.0 FL) 94.5 MCH (27.0 - 31.0 PG) 31.4 H RDW (11.5 - 14.5 %) 13.3 Plt Count (130 - 400 /CUMM) 161 MPV (7.4 - 10.4 FL) 9.2 Gran % (42.2 - 75.2 %) 68.6 Lymphocytes % (20.5 - 51.1 %) 24.8 Monocytes % (1.7 - 9.3 %) 6.3 Eosinophils % (0 - 5 %) 0 Basophils % (0.0 - 2.0 %) 0.3 Absolute Granulocytes (1.4 - 6.5 /CUMM) 14.7 H Segmented Neutrophils (42.2 - 75.2 %) 59 Band Neutrophils (0.0 - 5.0 %) 7 H Absolute Lymphocytes (1.2 - 3.4 /CUMM) 5.3 H Lymphocytes (20.5 - 51.1 %) 29 Monocytes (1.7 - 9.3 %) 5 Absolute Monocytes (0.10 - 0.60 /CUMM) 1.4 H Absolute Eosinophils (0.0 - 0.7 /CUMM) 0 Absolute Basophils (0.0 - 0.2 /CUMM) 0.1 Platelet Estimate (ADEQUATE) ADEQUATE Normocytic RBCs VERIFIED Normochromic RBCs VERIFIED PUBS MCHC (33.0 - 37.0 G/DL) 33.2 07/19 07/19 07/19 2230 2100 2100 Chemistry Sodium (137 - 145 mmol/L) 161 *H Potassium (3.5 - 5.1 mmol/L) 3.6 Chloride (98 - 107 mmol/L) 120 H Carbon Dioxide (22 - 30 mmol/L) 21 L Anion Gap (5 - 16) 20 H BUN (7 - 17 mg/dL) 28 H Creatinine (0.5 - 1.0 mg/dL) 1.8 H Estimated GFR (>60 ml/min) 28 L Glucose (65 - 99 mg/dL) 317 H Lactic Acid (0.7 - 2.1 mmol/L) 7.7 H Calcium (8.4 - 10.2 mg/dL) 8.6 Phosphorus (2.5 - 4.5 mg/dL) 1.4 L Magnesium (1.6 - 2.3 mg/dL) 2.0 Total Bilirubin (0.2 - 1.3 mg/dL) 0.6 AST (14 - 36 U/L) 27 ALT (9 - 52 U/L) 58 H Troponin I (< 0.11 ng/ml) 0.09 Cancelled Albumin (3.5 - 5.0 g/dL) 3.7 Coagulation PT (9.4 - 12.5 SEC) 11.2 INR (0.90 - 1.19) 1.07 APTT (25 - 37 SEC) 31 Hematology CBC w Diff NO MAN DIFF REQ WBC (4.8 - 10.8 /CUMM) 17.9 H RBC (4.20 - 5.40 /CUMM) 4.70 Hgb (12.0 - 16.0 G/DL) 14.6 Hct (37 - 47 %) 44.6 MCV (81.0 - 99.0 FL) 94.8 MCH (27.0 - 31.0 PG) 31.0 RDW (11.5 - 14.5 %) 13.7 Plt Count (130 - 400 /CUMM) 145 MPV (7.4 - 10.4 FL) 9.4 Gran % (42.2 - 75.2 %) 77.9 H Lymphocytes % (20.5 - 51.1 %) 18.5 L Monocytes % (1.7 - 9.3 %) 3.5 Eosinophils % (0 - 5 %) 0 Basophils % (0.0 - 2.0 %) 0.1 Absolute Granulocytes (1.4 - 6.5 /CUMM) 14.0 H Absolute Lymphocytes (1.2 - 3.4 /CUMM) 3.3 Absolute Monocytes (0.10 - 0.60 /CUMM) 0.6 Absolute Eosinophils (0.0 - 0.7 /CUMM) 0 Absolute Basophils (0.0 - 0.2 /CUMM) 0 PUBS MCHC (33.0 - 37.0 G/DL) 32.7 L 07/19 1635 1635 1610 Blood Gas pH (7.35 - 7.45 PH) 7.31 L pCO2 (35 - 45 TORR) 26 L pO2 (80 - 100 TORR) 77 L HCO3 (21 - 28 MEQ/L) 13 L ABG O2 Sat (Measured) (>96.0 %) 94.0 L P-50 (Temp Corrected) N Carboxyhemoglobin (1.5 - 5.0 %) 0.3 L O2 Concentration % 2L Temperature (97.0 - 100.0 FARH) 99.3 O2 Delivery Method NC Chemistry Sodium (137 - 145 mmol/L) Cancelled 155 H Potassium (3.5 - 5.1 mmol/L) Cancelled 3.5 Chloride (98 - 107 mmol/L) Cancelled 118 H Carbon Dioxide (22 - 30 mmol/L) Cancelled 13 L Anion Gap (5 - 16) Cancelled 24 H BUN (7 - 17 mg/dL) Cancelled 34 H Creatinine (0.5 - 1.0 mg/dL) Cancelled 2.5 H Estimated GFR (>60 ml/min) 19 L Glucose (65 - 99 mg/dL) Cancelled 692 *H Lactic Acid (0.7 - 2.1 mmol/L) 7.1 H Calcium (8.4 - 10.2 mg/dL) Cancelled 7.8 L Phosphorus (2.5 - 4.5 mg/dL) Cancelled 4.1 Magnesium (1.6 - 2.3 mg/dL) Cancelled 1.9 Total Bilirubin (0.2 - 1.3 mg/dL) Cancelled 0.6 AST (14 - 36 U/L) Cancelled 33 ALT (9 - 52 U/L) Cancelled 50 Albumin (3.5 - 5.0 g/dL) Cancelled 3.2 L Miscellaneous Phlebotomy Draw Site RIGHT RADIAL 07/19 07/19 1557 1310 Chemistry Sodium (137 - 145 mmol/L) 147 H Potassium (3.5 - 5.1 mmol/L) 5.1 Chloride (98 - 107 mmol/L) 104 Carbon Dioxide (22 - 30 mmol/L) 9 *L Anion Gap (5 - 16) 34 H BUN (7 - 17 mg/dL) 42 H Creatinine (0.5 - 1.0 mg/dL) 4.3 H Estimated GFR (>60 ml/min) 10 L BUN/Creatinine Ratio (7 - 25 %) 9.8 Glucose (65 - 99 mg/dL) 1103 *H Hemoglobin A1c (4.2 - 5.8 %) Pending Serum Osmolality (285 - 295 MOSM/KG) 389 H Lactic Acid (0.7 - 2.1 mmol/L) Cancelled 8.3 H Calcium (8.4 - 10.2 mg/dL) 9.5 Total Bilirubin (0.2 - 1.3 mg/dL) 0.9 AST (14 - 36 U/L) 28 ALT (9 - 52 U/L) 67 H Alkaline Phosphatase (<127 U/L) 82 Troponin I (< 0.11 ng/ml) 0.14 *H Total Protein (6.3 - 8.2 g/dL) 7.6 Albumin (3.5 - 5.0 g/dL) 4.3 Globulin (1.9 - 4.2 gm/dL) 3.3 Albumin/Globulin Ratio (1.1 - 2.2 %) 1.3 Amylase (30 - 110 U/L) 131 H Lipase (23 - 300 U/L) 161 TSH (0.270 - 4.200 uIU/mL) 0.312 Free T4 (0.78 - 2.44 ng/dL) 2.76 H Hematology CBC w Diff MAN DIFF ORDERED WBC (4.8 - 10.8 /CUMM) 25.4 H RBC (4.20 - 5.40 /CUMM) 4.87 Hgb (12.0 - 16.0 G/DL) 15.3 Hct (37 - 47 %) 48.6 H MCV (81.0 - 99.0 FL) 99.8 H MCH (27.0 - 31.0 PG) 31.4 H RDW (11.5 - 14.5 %) 14.0 Plt Count (130 - 400 /CUMM) 223 MPV (7.4 - 10.4 FL) 10.2 Gran % (42.2 - 75.2 %) 82.8 H Lymphocytes % (20.5 - 51.1 %) 7.6 L Monocytes % (1.7 - 9.3 %) 9.5 H Eosinophils % (0 - 5 %) 0 Basophils % (0.0 - 2.0 %) 0.1 Absolute Granulocytes (1.4 - 6.5 /CUMM) 21.0 H Segmented Neutrophils (42.2 - 75.2 %) 72 Band Neutrophils (0.0 - 5.0 %) 13 H Absolute Lymphocytes (1.2 - 3.4 /CUMM) 1.9 Lymphocytes (20.5 - 51.1 %) 11 L Monocytes (1.7 - 9.3 %) 3 Absolute Monocytes (0.10 - 0.60 /CUMM) 2.4 H Absolute Eosinophils (0.0 - 0.7 /CUMM) 0 Basophils (0.0 - 2.0 %) 1 Absolute Basophils (0.0 - 0.2 /CUMM) 0 Normocytic RBCs VERIFIED Normochromic RBCs VERIFIED PUBS MCHC (33.0 - 37.0 G/DL) 31.4 L Toxicology Valproic Acid (50 - 120 ug/mL) 14.9 L Acetone Level (NEGATIVE) POSITIVE AT 1:4 DIL Urines Urine Color (YEL,AMB,STR) YEL Urine Clarity (CLEAR) CLDY H Urine pH (5.0 - 8.0) 5.0 Ur Specific [place] (1.001 - 1.035) 1.025 Urine Protein (NEG,<30 MG/DL) 30 H Urine Ketones (NEG) TRACE H Urine Nitrite (NEG) NEG Urine Bilirubin (NEG) NEG@ICTO Urine Urobilinogen (0.1 - 1.0 EU/dl) 1.0 Ur Leukocyte Esterase (NEG) NEG Ur Microscopic SEDIMENT EXAMINED Urine WBC (0 - 2 /HPF) RARE Ur Epithelial Cells (NONE,FEW) MOD H Urine Bacteria (NEG/NONE) MANY H Urine Hemoglobin (NEG) NEG Urine Glucose (N MG/DL) >=1000 H 07/19 07/19 1215 UNK Blood Gas Bicarbonate Actual (22 - 26 MEQ/L) 13 L Mixed VBG pH (7.31 - 7.41 PH) 7.22 L Mixed VBG pCO2 (41 - 51 TORR) 33 L Mixed VBG O2 Saturation (35 - 45 TORR) 45 P-50 (Temp Corrected) Y Carboxyhemoglobin (1.5 - 5.0 %) 0.4 L O2 Concentration % 100 Temperature (97.0 - 100.0 FARH) 101.8 H O2 Delivery Method NRB Chemistry Sodium Cancelled Potassium Cancelled Chloride Cancelled Carbon Dioxide Cancelled Anion Gap Cancelled BUN Cancelled Creatinine Cancelled Glucose Cancelled Calcium Cancelled Phosphorus Cancelled Magnesium Cancelled Total Bilirubin Cancelled AST Cancelled ALT Cancelled Albumin Cancelled Miscellaneous Phlebotomy Draw Site R-HAND Microbiology Date/Time Procedure - Status Source Growth 07/19 2350 Urine Culture - RECD URINE ROUT 07/19 1845 Surveillance Culture - RECD UPPER RESP 07/19 1845 Surveillance Culture - RECD GI 07/19 1524 Respiratory Culture - COLB LOWER RESP 07/19 1524 Gram Stain - COLB LOWER RESP 07/19 1458 Blood Culture - RECD BLOOD 07/19 1315 Influenza Virus A & B Rapid Smear - COMP NASOPHARYN 07/19 1310 Urine Culture - RES URINE ROUT 07/19 1310 Blood Culture - RECD BLOOD Impression/Plan Impression/Plan Impression/Plan: Physical Exam General Appearance: lethargic Head: atraumatic, normal appearance Eyes: Bilateral: normal appearance, PERRL, EOMI. Ears, Nose, Throat: normal pharynx, normal ENT inspection Neck: normal inspection, supple, full range of motion Respiratory: normal breath sounds, chest non-tender, no respiratory distress Cardiovascular: tachycardia Gastrointestinal: normal bowel sounds, soft, non-tender Back: normal inspection, normal range of motion Extremities: normal range of motion, pelvis stable Skin: intact, normal color, warm/dry IMPRESSION This is a lady with advanced dementia was essentially bedbound with total care lives in a rehabilitation facility with recent worsening of overall performance status was found to have significant hyperglycemia with ketosis and altered mental status. Issues include * Significant hyperglycemic state with altered mental status with diabetic ketoacidosis. Patient has new onset diabetes. 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 other pathology may need to be ruled out * Improving Severe acidosis including lactic acidosis most likely related to low perfusion state with probable sepsis * Advanced dementia * REsolving Acute renal failure most likely related to low flow state rule out any obstructive uropathy Recommendation * Continue intravenous fluids and insulin per ENdo * Swallow eval when able * COnt abx for now * Panculture * Check lactic acid level with the next blood draw and rpt labs as noted in endo note * Keep the head of bed elevated to prevent aspiration * Intravenous proton pump inhibitor * Monitor troponin and ekg * When able start levothyroxine at 200 mcg (down from 250 at [facility]), If she does not pass swallow eval start levoxyl iv 125 mcg daily * Keep mag at 2 Patient is critically ill total time spent 40 minutes
--- NOTE | 2016-07-20 11:55 | ULTRASOUND REPORT ---
EXAMINATION: US ABDOMEN LIMITED CLINICAL INFORMATION: Septic. Assess for stone versus sludge. COMPARISON: None TECHNIQUE: Real-time imaging of the right upper quadrant abdominal viscera. Examination was obtained portably. Patient was able to follow breathing instructions or to position in a decubitus manner. FINDINGS: PANCREAS: Obscured by overlying bowel gas LIVER: Limited evaluation and difficult to visualize. There is diffusely increased hepatic echotexture with attenuation of the sound beam suggesting diffuse fatty infiltration. No focal hepatic lesion or biliary ductal dilatation identified however. GALLBLADDER: Again very difficult to visualize. There may be a small stone in the dependent gallbladder. COMMON BILE DUCT: Normal in caliber measuring 0.6 cm in diameter but difficult to visualize. RIGHT KIDNEY: 5.1 cm lower pole cyst. No hydronephrosis. No renal calculi or focal parenchymal lesions. The kidney measures 12.1 cm in maximum dimension. FREE FLUID: None. IMPRESSION: Very limited examination. Probable gallstone in the dependent portion of the gallbladder. Diffusely increased hepatic echotexture with attenuation of sound beam suggesting diffuse fatty infiltration.
--- NOTE | 2016-07-20 12:05 | CT SCAN REPORT ---
EXAMINATION: CT CHEST WITHOUT CONTRAST CLINICAL INFORMATION: Right with deviation trachea with left paratracheal soft tissue mass on portable chest. COMPARISON: Portable chest 07/19/2016, CT abdomen 07/19/2016. TECHNIQUE: Multidetector volumetric CT imaging of the chest is performed without intravenous contrast. Additional 2-D coronal and sagittal reformatted images and axial 3-D maximum intensity projection MIP images are generated on the CT workstation. DLP: 356 mGy-cm FINDINGS: [employer] CANNING: Right with bowing trachea air column and suprasternal clip, both similar to portable chest 07/19/2016. LUNGS: The central airways are clear. There are bilateral lower lobe atelectasis and airspace consolidation with air bronchograms, left slightly increased from CT abdomen 07/19/2016. No gross effusion. The upper lobes and right middle lobe appear clear. There is no visible mass or nodule. MEDIASTINUM: Heart size normal. No pericardial effusion. There are coronary artery atherosclerotic calcifications. Aorta normal in caliber. Probable subcarinal adenopathy on right 1.4 cm. Otherwise, no visible hilar or mediastinal adenopathy. There is rightward bowing of the trachea air column. The left thyroid lobe is enlarged measuring 2.9 x 3.6 cm just above the sternal notch. Inferior cortical aspect left thyroid lobe extends to the thoracic inlet. There is no mediastinal extension. No supraclavicular adenopathy demonstrated. PLEURA: No pleural thickening or pleural mass demonstrated. No definite effusion. AXILLA: No adenopathy. UPPER ABDOMEN: Inhomogeneous hepatic steatosis. OSSEOUS STRUCTURES: Unremarkable. IMPRESSION: 1. Left thyroid lobe enlargement with rightward bowing trachea air column. 2. Bilateral lower lobe atelectasis and airspace consolidation. The bilateral involvement and location may suggest aspiration. Clinically correlate. 3. Questionable subcarinal node 1.4 cm. Otherwise no visible hilar or mediastinal adenopathy.
[2016-07-20 16:00] VITALS: BP 135/70
[2016-07-21] VITALS: BP 132/56
[2016-07-21 06:11] LABS: ABSOLUTE BASOPHIL COUNT 0 /CUMM (0.0-0.2); ABSOLUTE EOSINOPHIL COUNT 0.1 /CUMM (0.0-0.7); ABSOLUTE GRANULOCYTE CT 10.5 /CUMM (1.4-6.5); ABSOLUTE LYMPH COUNT 4.1 /CUMM (1.2-3.4); ABSOLUTE MONOCYTE COUNT 1.2 /CUMM (0.10-0.60); BASOPHIL % 0.2 % (0.0-2.0); EOSINOPHIL % 0.9 % (0-5); GRANULOCYTE % 65.8 % (42.2-75.2); MEAN CORPUSCULAR HGB 31.4 PG (27.0-31.0); MEAN PLATELET VOLUME 10.1 FL (7.4-10.4); PLATELET COUNT 127 /CUMM (130-400); RED BLOOD CELL CT 3.83 /CUMM (4.20-5.40); WHITE BLOOD CELL COUNT 15.9 /CUMM (4.8-10.8)
[2016-07-21 06:20] LABS: HEMATOCRIT 36.4 % (37-47)
--- NOTE | 2016-07-21 07:04 | PN- Resident CRCU ---
Subjective HPI/CRCU Issues: Pt seen today with her daughter at bedside. I explained the incidental findings on CT and US and we agreed on no further aggressive workups. Daughter just wants her to be comfortable. It is most important to her that she be able to pass swallow evaluation and eat as it is the main way that she bonds with the patient (she feeds her), and it is the main indicatio of the severity of the patient's dementia. Her sugar ranging in the 200s to 300s. As she is NPO, will continue IVF with current insulin regimen, rate decreased to 125ml/hr. Will have repeat swallow eval today, if she fails, plan to get hospice involved in her care. Repeated thyroid function test this morning and will make decision on levothyroxine dose change based on that. On my examination, pt appears comfortable laying in bed, without abdominal tenderness. Labs reviewed, wbc down from 21.5 to 15.9, hb 13.9 to 12, na 153 to 149, k 3.5 to 3.8, mag 1.6. [id number] mag sulf, 1X 10 meq kcl. TSh 0.072L with FT4 2.59 (was 0.312 and 2.76 on day of admission). Pt stable for transfer to . Objective Vital Signs & I&O Last 8 Hrs of Vitals and I&O: Intake & Output 07/21 1600 07/21 0800 07/21 0000 Intake Total 1200 450 Output Total 695 260 Balance 505 190 Intake, IV 1200 450 Output, Urine 695 260 Laboratory Tests 07/21 07/21 07/20 0500 0045 1800 Chemistry Sodium (137 - 145 mmol/L) 149 H 149 H Potassium (3.5 - 5.1 mmol/L) 3.8 3.5 Chloride (98 - 107 mmol/L) 112 H 114 H Carbon Dioxide (22 - 30 mmol/L) 24 24 Anion Gap (5 - 16) 14 11 BUN (7 - 17 mg/dL) 13 15 Creatinine (0.5 - 1.0 mg/dL) 0.7 0.8 Estimated GFR (>60 ml/min) > 60 > 60 Glucose (65 - 99 mg/dL) 216 H 263 H Lactic Acid (0.7 - 2.1 mmol/L) 3.0 H 3.2 H Calcium (8.4 - 10.2 mg/dL) 8.4 8.4 Phosphorus (2.5 - 4.5 mg/dL) 2.1 L 1.9 L Magnesium (1.6 - 2.3 mg/dL) 1.6 1.6 Total Bilirubin (0.2 - 1.3 mg/dL) 1.0 0.8 AST (14 - 36 U/L) 22 21 ALT (9 - 52 U/L) 47 43 Albumin (3.5 - 5.0 g/dL) 2.9 L 2.8 L TSH (0.270 - 4.200 uIU/mL) Pending Free T4 (0.78 - 2.44 ng/dL) Pending Hematology CBC w Diff MAN DIFF ORDERED WBC (4.8 - 10.8 /CUMM) 15.9 H RBC (4.20 - 5.40 /CUMM) 3.83 L Hgb (12.0 - 16.0 G/DL) 12.0 Hct (37 - 47 %) 36.4 L MCV (81.0 - 99.0 FL) 95.0 MCH (27.0 - 31.0 PG) 31.4 H RDW (11.5 - 14.5 %) 13.0 Plt Count (130 - 400 /CUMM) 127 L MPV (7.4 - 10.4 FL) 10.1 Gran % (42.2 - 75.2 %) 65.8 Lymphocytes % (20.5 - 51.1 %) 25.5 Monocytes % (1.7 - 9.3 %) 7.6 Eosinophils % (0 - 5 %) 0.9 Basophils % (0.0 - 2.0 %) 0.2 Absolute Granulocytes (1.4 - 6.5 /CUMM) 10.5 H Segmented Neutrophils (42.2 - 75.2 %) 63 Band Neutrophils (0.0 - 5.0 %) 6 H Absolute Lymphocytes (1.2 - 3.4 /CUMM) 4.1 H Lymphocytes (20.5 - 51.1 %) 25 Monocytes (1.7 - 9.3 %) 5 Absolute Monocytes (0.10 - 0.60 /CUMM) 1.2 H Absolute Eosinophils (0.0 - 0.7 /CUMM) 0.1 Absolute Basophils (0.0 - 0.2 /CUMM) 0 Metamyelocytes (0.0 - 1.0 %) 1 Platelet Estimate (ADEQUATE) ADEQUATE Polychromasia 1+ Ovalocytes FEW Stomatocytes FEW PUBS MCHC (33.0 - 37.0 G/DL) 33.0 Other Body Source Fld Total RBCs Counted (%) 100 07/20 07/20 1540 1045 Chemistry Sodium (137 - 145 mmol/L) 153 H 154 H Potassium (3.5 - 5.1 mmol/L) 3.9 3.8 Chloride (98 - 107 mmol/L) 116 H 120 H Carbon Dioxide (22 - 30 mmol/L) 23 23 Anion Gap (5 - 16) 14 11 BUN (7 - 17 mg/dL) 21 H 24 H Creatinine (0.5 - 1.0 mg/dL) 0.8 0.8 Estimated GFR (>60 ml/min) > 60 > 60 Glucose (65 - 99 mg/dL) 253 H 224 H Calcium (8.4 - 10.2 mg/dL) 8.4 8.6 Phosphorus (2.5 - 4.5 mg/dL) 3.1 1.7 L Magnesium (1.6 - 2.3 mg/dL) 1.7 1.8 Total Bilirubin (0.2 - 1.3 mg/dL) 0.8 0.7 AST (14 - 36 U/L) 26 27 ALT (9 - 52 U/L) 47 47 Albumin (3.5 - 5.0 g/dL) 3.1 L 3.2 L Vital Signs Date Time Temp Pulse Resp B/P Pulse O2 O2 Flow FiO2 Ox Delivery Rate 07/21 0400 Nasal 2.0L Cannula 07/21 0000 93 Nasal 2.0L Cannula 07/21 0000 98.7 99 24 132/56 93 Nasal 2.0L Cannula 07/20 2000 95 Nasal 2.0L Cannula 07/20 1600 94 Nasal 2.0L Cannula 07/20 1600 98.8 107 20 135/70 94 Nasal 2.0L Cannula 07/20 1200 94 Nasal 2.0L Cannula Exam General Appearance: alert, awake, comfortable Head: normal appearance Respiratory: patient did not take deep breaths. but was in no distress. Cardiovascular: regular rate/rhythm Gastrointestinal: normal bowel sounds, soft, non-tender Extremities: no edema Current Medications: Current Medications Sig/Bess Start time Last Medication Dose Route Stop Time Status Admin Acetaminophen 1,000 MG Q6P PRN 07/19 1815 AC IV Ampicillin Sodium/ 3,000 MG Q12H 07/20 0300 AC 07/21 Sulbactam Sodium IV 0236 Sodium Chloride 100 ML Insulin Aspart 0 Q4 07/20 0900 AC 07/21 SC 0615 Insulin Detemir 10 UNITS BID 07/20 0900 AC 07/20 SC 2232 Insulin Human Regular 100 UNIT Q24H 07/19 1400 DC 07/20 Sodium Chloride 100 ML IV 0021 Levothyroxine Sodium 125 MCG DAILY 07/20 1746 AC 07/20 IV 2143 Magnesium Sulfate 1 GM Q2H 07/21 0800 AC Dextrose/Water 100 ML IV 07/21 1159 Pantoprazole Sodium 40 MG DAILY 07/19 1700 AC 07/20 IV 0918 Potassium Chloride 10 MEQ Q1H 07/21 0800 AC IV 07/21 0901 Potassium Chloride 20 MEQ Q6H 07/19 2330 AC 07/21 Dextrose/Sodium 1,000 ML IV 0616 Chloride Potassium Phosphate 15 mMol ONE ONE 07/20 0830 DC 07/20 Dextrose/Water 250 ML IV 07/20 1233 1034 Impression/Plan Impression/Problem List Impression: 75-year-old female with PMH anxiety, depression, alzheimer's dementia, baseline nonverbal and unable to recognize people, hypothyroidism, was brought in by ambulance from [facility]) for glucose > 1000, persistent fever, and unresponsiveness. Patient admitted to ICU for hyperosmolar hyperglycemic state with mild ketoacidosis and lactic acidosis, with fever up to 103.3, WBC 25.4 with 13 bands , most likely due to aspiration pneumonia as suggested by imaging. She failed swallow evaluation. Troponin also found to be elevated, most likely due to demand ischemia, but cannot rule out ischemia as the stressor. She has decreased PO intake over the past 2-3 days [employer], with BRANDON noted, with physical exam significant for dry mucous membranes despite having received 4L NS. Problem list: # Hyperosmolar hyperglycemic state with mild ketoacidosis and lactic acidosis ( resolved) # Severe sepsis, hypotension, most likely due to pneumonia # BRANDON most likely due to poor PO intake (prerenal) # Positive troponin most likely demand ischemia # Dysphagia # Hyperosmolar hyperglycemic state with mild ketoacidosis and lactic acidosis - No hx of DM in pt or family - hba1c 10, she has been on quetiapine and valproic for behavioral problems. - LA 8.3 --> 3 * Appreciate endocrinology input, Dr. Mccracken * On SC NovoLog and Levemir 10 units twice a day. On D5 half-normal saline + 20 milliequivalents KCl at 75 mL per hour. # Severe sepsis most likely due to PNA, with acute respiratory failure (pulse ox 90% on non rebreather, po2 77 on ABG, pco2 26L) - Flu negative - CT: Bilateral lower lobe airspace consolidations, right greater than left, which likely represent pneumonia. - The gallbladder is distended and hyperdense without pericholecystic fat stranding. This could represent stones versus sludge. Right upper quadrant ultrasound could be considered to help further evaluate if clinically indicated. * Follow pancx * Continue high dose unasyn for possible aspiration PNA, consider HCAP as well * Continue IV protonix # BRANDON most likely due to poor PO intake (prerenal) - Multiple hypodensities throughout the bilateral kidneys. Calcifications associated with a right kidney lower pole hypodense lesion. These could represent complex cysts; however, renal cell carcinoma cannot be excluded and followup ultrasound is recommended to help further evaluate. Nonobstructive right renal stone. * Creatinine upon presentation 4.3, improved to 0.7 with aggressive IVF # Positive troponin (most likely demand ischemia, tachy up to 140, fever) - Trop 0.14 on admission, then came down # Dysphagia * NPO await speech eval --> Diet advanced to ground mech soft and thin * ST following # Hypothyroid - On admission TSH/FT4 0.312, 2.76 - Repeat TSH/FT4 0.072/2.59 * Levothyroxine 250 mcg at home, reduced to 200 mcg # BRANDON, most likely prerenal - Cr 4.3 on admission, now down to 0.7 # HTN * Continue Lisinopril 5 # HOLD - Valproic 250, Trazodone 100, Quetiapine 50. Pt was started on these meds due to agitation and aggressive behavior. Pt's daughter would like to watch her off these meds as she seems more alert and awake since we have been holding these meds. * Resume meds if needed # Consitipation * Continue Senna and Miralax Diet: CC2 mechanical soft and thin DVT ppx: [facility] pharm DNR/DNI Problem List: 1. Hyperosmolar coma Pain Ratin Tomorrow's Labs & Rationales: CBC bep and mg for elecrolyte abnormality drop h/h Plan DVT/Prophylaxis: mechanical, pharmacological Plan DVT/Prophylaxis: mechanical, pharmacological
--- NOTE | 2016-07-21 07:57 | PN- Diabetes ---
Assessment/Plan Assessment: Patient is more alert this morning. Her mental status is improving. Labs show this morning dose to 16, serum sodium 149, potassium 3.8, chloride 112, and CO2 24. Her serum sodium is coming down and her metabolic encephalopathy is resolving. Patient is on Levemir and units twice a day as well as sliding scale NovoLog every 4 hours. Most recent fingerstick blood sugars are 3:15, to 88, 266. In the lab her sugar this morning is 216 however. Thyroid function tests on the day of admission showed a free T4 2.76 and a TSH of 0.312 Plan: Suggest continue D5 half normal saline +20 mEq KCl until the patient is able to begin her diet and passes the swallowing evaluation. I would reduce the rate of the IV however to 125 mL per hour. We will leave her insulin the same for now since we are reducing the IV rate. I would add repeat thyroid function test her lab today. Her thyroid tests were too high on admission which could've been due to sick euthyroid or acute illness at that time. If they come back elevated again we will need to reduce the dose of levothyroxine to 100 g daily. Subjective Subjective: And able to answer questions Objective Last 24 Hrs of Vital Signs/I&O Vital Signs Date Time Temp Pulse Resp B/P Pulse O2 O2 Flow FiO2 Ox Delivery Rate 07/21 0400 Nasal 2.0L Cannula 07/21 0000 93 Nasal 2.0L Cannula 07/21 0000 98.7 99 24 132/56 93 Nasal 2.0L Cannula 07/20 2000 95 Nasal 2.0L Cannula 07/20 1600 94 Nasal 2.0L Cannula 07/20 1600 98.8 107 20 135/70 94 Nasal 2.0L Cannula 07/20 1200 94 Nasal 2.0L Cannula 07/20 0800 96 Nasal 2.0L Cannula 07/20 0800 97.5 112 22 130/62 96 Nasal 2.0L Cannula Intake & Output 07/21 0800 07/21 0000 07/20 1600 Intake Total 1200 450 965 Output Total 695 260 635 Balance 505 190 330 Intake, IV 1200 450 965 Output, Urine 695 260 635 Vital Signs Date Time Temp Pulse Resp B/P Pulse O2 O2 Flow FiO2 Ox Delivery Rate 07/21 0400 Nasal 2.0L Cannula 07/21 0000 93 Nasal 2.0L Cannula 07/21 0000 98.7 99 24 132/56 93 Nasal 2.0L Cannula 07/20 2000 95 Nasal 2.0L Cannula 07/20 1600 94 Nasal 2.0L Cannula 07/20 1600 98.8 107 20 135/70 94 Nasal 2.0L Cannula 07/20 1200 94 Nasal 2.0L Cannula 07/20 0800 96 Nasal 2.0L Cannula 07/20 0800 97.5 112 22 130/62 96 Nasal 2.0L Cannula Intake & Output 07/21 0800 07/21 0000 07/20 1600 Intake Total 1200 450 965 Output Total 695 260 635 Balance 505 190 330 Intake, IV 1200 450 965 Output, Urine 695 260 635 Physical Exam General Appearance: alert, awake Neck: normal inspection Respiratory: normal breath sounds Cardiovascular: regular rate/rhythm Abdomen: normal bowel sounds Extremities: normal inspection Current Medications: Current Medications Sig/Bess Start time Last Medication Dose Route Stop Time Status Admin Acetaminophen 1,000 MG Q6P PRN 07/19 1815 IV Ampicillin Sodium/ 3,000 MG Q12H 07/20 0300 AC 07/21 Sulbactam Sodium IV 0236 Sodium Chloride 100 ML Insulin Aspart 0 Q4 07/20 0900 AC 07/21 SC 0615 Insulin Detemir 10 UNITS BID 07/20 0900 07/20 SC 2232 Insulin Human Regular 100 UNIT Q24H 07/19 1400 DC 07/20 Sodium Chloride 100 ML IV 0021 Levothyroxine Sodium 125 MCG DAILY 07/20 1746 AC 07/20 IV 2143 Pantoprazole Sodium 40 MG DAILY 07/19 1700 AC 07/20 IV 0918 Potassium Chloride 20 MEQ Q6H 07/19 2330 AC 07/21 Dextrose/Sodium 1,000 ML IV 0616 Chloride Potassium Phosphate 15 mMol ONE ONE 07/20 0830 DC 07/20 Dextrose/Water 250 ML IV 07/20 1233 1034 Findings Pertinent Lab/Neri Results: Laboratory Tests 07/21 07/21 07/20 0500 0045 1800 Chemistry Sodium (137 - 145 mmol/L) 149 H 149 H Potassium (3.5 - 5.1 mmol/L) 3.8 3.5 Chloride (98 - 107 mmol/L) 112 H 114 H Carbon Dioxide (22 - 30 mmol/L) 24 24 Anion Gap (5 - 16) 14 11 BUN (7 - 17 mg/dL) 13 15 Creatinine (0.5 - 1.0 mg/dL) 0.7 0.8 Estimated GFR (>60 ml/min) > 60 > 60 Glucose (65 - 99 mg/dL) 216 H 263 H Lactic Acid (0.7 - 2.1 mmol/L) 3.0 H 3.2 H Calcium (8.4 - 10.2 mg/dL) 8.4 8.4 Phosphorus (2.5 - 4.5 mg/dL) 2.1 L 1.9 L Magnesium (1.6 - 2.3 mg/dL) 1.6 1.6 Total Bilirubin (0.2 - 1.3 mg/dL) 1.0 0.8 AST (14 - 36 U/L) 22 21 ALT (9 - 52 U/L) 47 43 Albumin (3.5 - 5.0 g/dL) 2.9 L 2.8 L Hematology CBC w Diff MAN DIFF ORDERED WBC (4.8 - 10.8 /CUMM) 15.9 H RBC (4.20 - 5.40 /CUMM) 3.83 L Hgb (12.0 - 16.0 G/DL) 12.0 Hct (37 - 47 %) 36.4 L MCV (81.0 - 99.0 FL) 95.0 MCH (27.0 - 31.0 PG) 31.4 H RDW (11.5 - 14.5 %) 13.0 Plt Count (130 - 400 /CUMM) 127 L MPV (7.4 - 10.4 FL) 10.1 Gran % (42.2 - 75.2 %) 65.8 Lymphocytes % (20.5 - 51.1 %) 25.5 Monocytes % (1.7 - 9.3 %) 7.6 Eosinophils % (0 - 5 %) 0.9 Basophils % (0.0 - 2.0 %) 0.2 Absolute Granulocytes (1.4 - 6.5 /CUMM) 10.5 H Segmented Neutrophils (42.2 - 75.2 %) 63 Band Neutrophils (0.0 - 5.0 %) 6 H Absolute Lymphocytes (1.2 - 3.4 /CUMM) 4.1 H Lymphocytes (20.5 - 51.1 %) 25 Monocytes (1.7 - 9.3 %) 5 Absolute Monocytes (0.10 - 0.60 /CUMM) 1.2 H Absolute Eosinophils (0.0 - 0.7 /CUMM) 0.1 Absolute Basophils (0.0 - 0.2 /CUMM) 0 Metamyelocytes (0.0 - 1.0 %) 1 Platelet Estimate (ADEQUATE) ADEQUATE Polychromasia 1+ Ovalocytes FEW Stomatocytes FEW PUBS MCHC (33.0 - 37.0 G/DL) 33.0 Other Body Source Fld Total RBCs Counted (%) 100 07/20 07/20 1540 1045 Chemistry Sodium (137 - 145 mmol/L) 153 H 154 H Potassium (3.5 - 5.1 mmol/L) 3.9 3.8 Chloride (98 - 107 mmol/L) 116 H 120 H Carbon Dioxide (22 - 30 mmol/L) 23 23 Anion Gap (5 - 16) 14 11 BUN (7 - 17 mg/dL) 21 H 24 H Creatinine (0.5 - 1.0 mg/dL) 0.8 0.8 Estimated GFR (>60 ml/min) > 60 > 60 Glucose (65 - 99 mg/dL) 253 H 224 H Calcium (8.4 - 10.2 mg/dL) 8.4 8.6 Phosphorus (2.5 - 4.5 mg/dL) 3.1 1.7 L Magnesium (1.6 - 2.3 mg/dL) 1.7 1.8 Total Bilirubin (0.2 - 1.3 mg/dL) 0.8 0.7 AST (14 - 36 U/L) 26 27 ALT (9 - 52 U/L) 47 47 Albumin (3.5 - 5.0 g/dL) 3.1 L 3.2 L
[2016-07-21 08:00] VITALS: BP 134/68
--- NOTE | 2016-07-21 09:36 | PN- CRCU ---
Subjective HPI/Critical Care Issues: Doing about the same Afebrile Unfortunately still unable to swallow Blood work reviewed Daughter at the bedside Patient nonverbal noncommunicative Laboratory Tests 07/21 07/21 07/20 0500 0045 1800 Chemistry Sodium (137 - 145 mmol/L) 149 H 149 H Potassium (3.5 - 5.1 mmol/L) 3.8 3.5 Chloride (98 - 107 mmol/L) 112 H 114 H Carbon Dioxide (22 - 30 mmol/L) 24 24 Anion Gap (5 - 16) 14 11 BUN (7 - 17 mg/dL) 13 15 Creatinine (0.5 - 1.0 mg/dL) 0.7 0.8 Estimated GFR (>60 ml/min) > 60 > 60 Glucose (65 - 99 mg/dL) 216 H 263 H Lactic Acid (0.7 - 2.1 mmol/L) 3.0 H 3.2 H Calcium (8.4 - 10.2 mg/dL) 8.4 8.4 Phosphorus (2.5 - 4.5 mg/dL) 2.1 L 1.9 L Magnesium (1.6 - 2.3 mg/dL) 1.6 1.6 Total Bilirubin (0.2 - 1.3 mg/dL) 1.0 0.8 AST (14 - 36 U/L) 22 21 ALT (9 - 52 U/L) 47 43 Albumin (3.5 - 5.0 g/dL) 2.9 L 2.8 L TSH (0.270 - 4.200 uIU/mL) 0.072 L Free T4 (0.78 - 2.44 ng/dL) 2.59 H Hematology CBC w Diff MAN DIFF ORDERED WBC (4.8 - 10.8 /CUMM) 15.9 H RBC (4.20 - 5.40 /CUMM) 3.83 L Hgb (12.0 - 16.0 G/DL) 12.0 Hct (37 - 47 %) 36.4 L MCV (81.0 - 99.0 FL) 95.0 MCH (27.0 - 31.0 PG) 31.4 H RDW (11.5 - 14.5 %) 13.0 Plt Count (130 - 400 /CUMM) 127 L MPV (7.4 - 10.4 FL) 10.1 Gran % (42.2 - 75.2 %) 65.8 Lymphocytes % (20.5 - 51.1 %) 25.5 Monocytes % (1.7 - 9.3 %) 7.6 Eosinophils % (0 - 5 %) 0.9 Basophils % (0.0 - 2.0 %) 0.2 Absolute Granulocytes (1.4 - 6.5 /CUMM) 10.5 H Segmented Neutrophils (42.2 - 75.2 %) 63 Band Neutrophils (0.0 - 5.0 %) 6 H Absolute Lymphocytes (1.2 - 3.4 /CUMM) 4.1 H Lymphocytes (20.5 - 51.1 %) 25 Monocytes (1.7 - 9.3 %) 5 Absolute Monocytes (0.10 - 0.60 /CUMM) 1.2 H Absolute Eosinophils (0.0 - 0.7 /CUMM) 0.1 Absolute Basophils (0.0 - 0.2 /CUMM) 0 Metamyelocytes (0.0 - 1.0 %) 1 Platelet Estimate (ADEQUATE) ADEQUATE Polychromasia 1+ Ovalocytes FEW Stomatocytes FEW PUBS MCHC (33.0 - 37.0 G/DL) 33.0 Other Body Source Fld Total RBCs Counted (%) 100 07/20 07/20 07/20 1540 1045 0400 Chemistry Sodium (137 - 145 mmol/L) 153 H 154 H 159 *H Potassium (3.5 - 5.1 mmol/L) 3.9 3.8 3.6 Chloride (98 - 107 mmol/L) 116 H 120 H 119 H Carbon Dioxide (22 - 30 mmol/L) 23 23 27 Anion Gap (5 - 16) 14 11 13 BUN (7 - 17 mg/dL) 21 H 24 H 26 H Creatinine (0.5 - 1.0 mg/dL) 0.8 0.8 1.1 H Estimated GFR (>60 ml/min) > 60 > 60 49 L Glucose (65 - 99 mg/dL) 253 H 224 H 136 H Calcium (8.4 - 10.2 mg/dL) 8.4 8.6 8.8 Phosphorus (2.5 - 4.5 mg/dL) 3.1 1.7 L 1.9 L Magnesium (1.6 - 2.3 mg/dL) 1.7 1.8 1.9 Total Bilirubin (0.2 - 1.3 mg/dL) 0.8 0.7 0.6 AST (14 - 36 U/L) 26 27 27 ALT (9 - 52 U/L) 47 47 69 H Troponin I (< 0.11 ng/ml) 0.08 Albumin (3.5 - 5.0 g/dL) 3.1 L 3.2 L 3.5 Hematology CBC w Diff MAN DIFF ORDERED WBC (4.8 - 10.8 /CUMM) 21.5 H RBC (4.20 - 5.40 /CUMM) 4.44 Hgb (12.0 - 16.0 G/DL) 13.9 Hct (37 - 47 %) 41.9 MCV (81.0 - 99.0 FL) 94.5 MCH (27.0 - 31.0 PG) 31.4 H RDW (11.5 - 14.5 %) 13.3 Plt Count (130 - 400 /CUMM) 161 MPV (7.4 - 10.4 FL) 9.2 Gran % (42.2 - 75.2 %) 68.6 Lymphocytes % (20.5 - 51.1 %) 24.8 Monocytes % (1.7 - 9.3 %) 6.3 Eosinophils % (0 - 5 %) 0 Basophils % (0.0 - 2.0 %) 0.3 Absolute Granulocytes (1.4 - 6.5 /CUMM) 14.7 H Segmented Neutrophils (42.2 - 75.2 %) 59 Band Neutrophils (0.0 - 5.0 %) 7 H Absolute Lymphocytes (1.2 - 3.4 /CUMM) 5.3 H Lymphocytes (20.5 - 51.1 %) 29 Monocytes (1.7 - 9.3 %) 5 Absolute Monocytes (0.10 - 0.60 /CUMM) 1.4 H Absolute Eosinophils (0.0 - 0.7 /CUMM) 0 Absolute Basophils (0.0 - 0.2 /CUMM) 0.1 Platelet Estimate (ADEQUATE) ADEQUATE Normocytic RBCs VERIFIED Normochromic RBCs VERIFIED PUBS MCHC (33.0 - 37.0 G/DL) 33.2 /07/20 0300 0050 2230 Chemistry Sodium (137 - 145 mmol/L) 160 *H 161 *H Potassium (3.5 - 5.1 mmol/L) 3.6 3.6 Chloride (98 - 107 mmol/L) 122 H 120 H Carbon Dioxide (22 - 30 mmol/L) 23 21 L Anion Gap (5 - 16) 15 20 H BUN (7 - 17 mg/dL) 28 H 28 H Creatinine (0.5 - 1.0 mg/dL) 1.4 H 1.8 H Estimated GFR (>60 ml/min) 37 L 28 L Glucose (65 - 99 mg/dL) 236 H 317 H Calcium (8.4 - 10.2 mg/dL) 8.5 8.6 Phosphorus (2.5 - 4.5 mg/dL) 1.4 L 1.4 L Magnesium (1.6 - 2.3 mg/dL) 1.9 2.0 Total Bilirubin (0.2 - 1.3 mg/dL) 0.6 0.6 AST (14 - 36 U/L) 24 27 ALT (9 - 52 U/L) 51 58 H Troponin I (< 0.11 ng/ml) Cancelled 0.09 Albumin (3.5 - 5.0 g/dL) 3.3 L 3.7 Coagulation PT (9.4 - 12.5 SEC) 11.2 INR (0.90 - 1.19) 1.07 APTT (25 - 37 SEC) 31 Hematology CBC w Diff NO MAN DIFF REQ WBC (4.8 - 10.8 /CUMM) 17.9 H RBC (4.20 - 5.40 /CUMM) 4.70 Hgb (12.0 - 16.0 G/DL) 14.6 Hct (37 - 47 %) 44.6 MCV (81.0 - 99.0 FL) 94.8 MCH (27.0 - 31.0 PG) 31.0 RDW (11.5 - 14.5 %) 13.7 Plt Count (130 - 400 /CUMM) 145 MPV (7.4 - 10.4 FL) 9.4 Gran % (42.2 - 75.2 %) 77.9 H Lymphocytes % (20.5 - 51.1 %) 18.5 L Monocytes % (1.7 - 9.3 %) 3.5 Eosinophils % (0 - 5 %) 0 Basophils % (0.0 - 2.0 %) 0.1 Absolute Granulocytes (1.4 - 6.5 /CUMM) 14.0 H Absolute Lymphocytes (1.2 - 3.4 /CUMM) 3.3 Absolute Monocytes (0.10 - 0.60 /CUMM) 0.6 Absolute Eosinophils (0.0 - 0.7 /CUMM) 0 Absolute Basophils (0.0 - 0.2 /CUMM) 0 PUBS MCHC (33.0 - 37.0 G/DL) 32.7 L 07/19 07/19 07/19 07/19 07/19 2100 2100 1999 1635 1635 Chemistry Sodium (137 - 145 mmol/L) Cancelled 155 H Potassium (3.5 - 5.1 mmol/L) Cancelled 3.5 Chloride (98 - 107 mmol/L) Cancelled 118 H Carbon Dioxide (22 - 30 mmol/L) Cancelled 13 L Anion Gap (5 - 16) Cancelled 24 H BUN (7 - 17 mg/dL) Cancelled 34 H Creatinine (0.5 - 1.0 mg/dL) Cancelled 2.5 H Estimated GFR (>60 ml/min) 19 L Glucose (65 - 99 mg/dL) Cancelled 692 *H Lactic Acid (0.7 - 2.1 mmol/L) 7.7 H 7.1 H Calcium (8.4 - 10.2 mg/dL) Cancelled 7.8 L Phosphorus (2.5 - 4.5 mg/dL) Cancelled 4.1 Magnesium (1.6 - 2.3 mg/dL) Cancelled 1.9 Total Bilirubin (0.2 - 1.3 mg/dL) Cancelled 0.6 AST (14 - 36 U/L) Cancelled 33 ALT (9 - 52 U/L) Cancelled 50 Troponin I Cancelled Albumin (3.5 - 5.0 g/dL) Cancelled 3.2 L 07/19 07/19 1610 1557 Blood Gas pH (7.35 - 7.45 PH) 7.31 L pCO2 (35 - 45 TORR) 26 L pO2 (80 - 100 TORR) 77 L HCO3 (21 - 28 MEQ/L) 13 L ABG O2 Sat (Measured) (>96.0 %) 94.0 L P-50 (Temp Corrected) N Carboxyhemoglobin (1.5 - 5.0 %) 0.3 L O2 Concentration % 2L Temperature (97.0 - 100.0 FARH) 99.3 O2 Delivery Method NC Chemistry Lactic Acid Cancelled Miscellaneous Phlebotomy Draw Site RIGHT RADIAL 07/19 07/19 1310 1215 Blood Gas Bicarbonate Actual (22 - 26 MEQ/L) 13 L Mixed VBG pH (7.31 - 7.41 PH) 7.22 L Mixed VBG pCO2 (41 - 51 TORR) 33 L Mixed VBG O2 Saturation (35 - 45 TORR) 45 P-50 (Temp Corrected) Y Carboxyhemoglobin (1.5 - 5.0 %) 0.4 L O2 Concentration % 100 Temperature (97.0 - 100.0 FARH) 101.8 H O2 Delivery Method NRB Chemistry Sodium (137 - 145 mmol/L) 147 H Potassium (3.5 - 5.1 mmol/L) 5.1 Chloride (98 - 107 mmol/L) 104 Carbon Dioxide (22 - 30 mmol/L) 9 *L Anion Gap (5 - 16) 34 H BUN (7 - 17 mg/dL) 42 H Creatinine (0.5 - 1.0 mg/dL) 4.3 H Estimated GFR (>60 ml/min) 10 L BUN/Creatinine Ratio (7 - 25 %) 9.8 Glucose (65 - 99 mg/dL) 1103 *H Hemoglobin A1c (4.2 - 5.8 %) Pending Serum Osmolality (285 - 295 MOSM/KG) 389 H Lactic Acid (0.7 - 2.1 mmol/L) 8.3 H Calcium (8.4 - 10.2 mg/dL) 9.5 Total Bilirubin (0.2 - 1.3 mg/dL) 0.9 AST (14 - 36 U/L) 28 ALT (9 - 52 U/L) 67 H Alkaline Phosphatase (<127 U/L) 82 Troponin I (< 0.11 ng/ml) 0.14 *H Total Protein (6.3 - 8.2 g/dL) 7.6 Albumin (3.5 - 5.0 g/dL) 4.3 Globulin (1.9 - 4.2 gm/dL) 3.3 Albumin/Globulin Ratio (1.1 - 2.2 %) 1.3 Amylase (30 - 110 U/L) 131 H Lipase (23 - 300 U/L) 161 TSH (0.270 - 4.200 uIU/mL) 0.312 Free T4 (0.78 - 2.44 ng/dL) 2.76 H Hematology CBC w Diff MAN DIFF ORDERED WBC (4.8 - 10.8 /CUMM) 25.4 H RBC (4.20 - 5.40 /CUMM) 4.87 Hgb (12.0 - 16.0 G/DL) 15.3 Hct (37 - 47 %) 48.6 H MCV (81.0 - 99.0 FL) 99.8 H MCH (27.0 - 31.0 PG) 31.4 H RDW (11.5 - 14.5 %) 14.0 Plt Count (130 - 400 /CUMM) 223 MPV (7.4 - 10.4 FL) 10.2 Gran % (42.2 - 75.2 %) 82.8 H Lymphocytes % (20.5 - 51.1 %) 7.6 L Monocytes % (1.7 - 9.3 %) 9.5 H Eosinophils % (0 - 5 %) 0 Basophils % (0.0 - 2.0 %) 0.1 Absolute Granulocytes (1.4 - 6.5 /CUMM) 21.0 H Segmented Neutrophils (42.2 - 75.2 %) 72 Band Neutrophils (0.0 - 5.0 %) 13 H Absolute Lymphocytes (1.2 - 3.4 /CUMM) 1.9 Lymphocytes (20.5 - 51.1 %) 11 L Monocytes (1.7 - 9.3 %) 3 Absolute Monocytes (0.10 - 0.60 /CUMM) 2.4 H Absolute Eosinophils (0.0 - 0.7 /CUMM) 0 Basophils (0.0 - 2.0 %) 1 Absolute Basophils (0.0 - 0.2 /CUMM) 0 Normocytic RBCs VERIFIED Normochromic RBCs VERIFIED PUBS MCHC (33.0 - 37.0 G/DL) 31.4 L Miscellaneous Phlebotomy Draw Site R-HAND Toxicology Valproic Acid (50 - 120 ug/mL) 14.9 L Acetone Level (NEGATIVE) POSITIVE AT 1:4 DIL Urines Urine Color (YEL,AMB,STR) YEL Urine Clarity (CLEAR) CLDY H Urine pH (5.0 - 8.0) 5.0 Ur Specific [place] (1.001 - 1.035) 1.025 Urine Protein (NEG,<30 MG/DL) 30 H Urine Ketones (NEG) TRACE H Urine Nitrite (NEG) NEG Urine Bilirubin (NEG) NEG@ICTO Urine Urobilinogen (0.1 - 1.0 EU/dl) 1.0 Ur Leukocyte Esterase (NEG) NEG Ur Microscopic SEDIMENT EXAMINED Urine WBC (0 - 2 /HPF) RARE Ur Epithelial Cells (NONE,FEW) MOD H Urine Bacteria (NEG/NONE) MANY H Urine Hemoglobin (NEG) NEG Urine Glucose (N MG/DL) >=1000 H 07/19 UNK Chemistry Sodium Cancelled Potassium Cancelled Chloride Cancelled Carbon Dioxide Cancelled Anion Gap Cancelled BUN Cancelled Creatinine Cancelled Glucose Cancelled Calcium Cancelled Phosphorus Cancelled Magnesium Cancelled Total Bilirubin Cancelled AST Cancelled ALT Cancelled Albumin Cancelled Microbiology Date/Time Procedure - Status Source Growth 07/19 2350 Urine Culture - RES URINE ROUT 07/19 1845 Surveillance Culture - COMP UPPER RESP 07/19 1845 Surveillance Culture - COMP GI 07/19 1524 Respiratory Culture - CAN LOWER RESP Cancelled: NO SPUTUM COLLECTED 07/19 1524 Gram Stain - CAN LOWER RESP Cancelled: NO SPUTUM COLLECTED 07/19 1458 Blood Culture - RES BLOOD 07/19 1315 Influenza Virus A & B Rapid Smear - COMP NASOPHARYN 07/19 1310 Urine Culture - RES URINE ROUT 07/19 1310 Blood Culture - RES BLOOD Objective Current Medications: Current Medications Sig/Bess Start time Last Medication Dose Route Stop Time Status Admin Acetaminophen 1,000 MG Q6P PRN 07/19 1815 AC IV Ampicillin Sodium/ 3,000 MG Q12H 07/20 0300 AC 07/21 Sulbactam Sodium IV 0236 Sodium Chloride 100 ML Insulin Aspart 0 Q4 07/20 0900 AC 07/21 [place] 0615 Insulin Detemir 10 UNITS BID 07/20 0900 AC 07/20 [place] 2232 Levothyroxine Sodium 125 MCG DAILY 07/20 1746 AC 07/21 IV 0909 Magnesium Sulfate 1 GM Q2H 07/21 0800 AC Dextrose/Water 100 ML IV 07/21 1159 Pantoprazole Sodium 40 MG DAILY 07/19 1700 AC 07/21 IV 0909 Potassium Chloride 10 MEQ Q1H 07/21 0800 DC 07/21 IV 07/21 0901 0920 Potassium Chloride 20 MEQ Q6H 07/19 2330 AC 07/21 Dextrose/Sodium 1,000 ML IV 0616 Chloride Potassium Phosphate 15 mMol ONE ONE 07/20 0830 DC 07/20 Dextrose/Water 250 ML IV 07/20 1233 1034 Vital Signs & I&O Last 24 Hrs of Vitals and I&O: Vital Signs Date Time Temp Pulse Resp B/P Pulse O2 O2 Flow FiO2 Ox Delivery Rate 07/21 0400 Nasal 2.0L Cannula 07/21 0000 93 Nasal 2.0L Cannula 07/21 0000 98.7 99 24 132/56 93 Nasal 2.0L Cannula 07/21 1999 95 Nasal 2.0L Cannula 07/20 1600 94 Nasal 2.0L Cannula 07/20 1600 98.8 107 20 135/70 94 Nasal 2.0L Cannula 07/20 1200 94 Nasal 2.0L Cannula Intake & Output 07/21 1600 07/21 0800 07/21 0000 Intake Total 1200 450 Output Total 695 260 Balance 505 190 Intake, IV 1200 450 Output, Urine 695 260 Impression/Plan Impression/Plan Impression/Plan: Physical Exam General Appearance: lethargic Head: atraumatic, normal appearance Eyes: Bilateral: normal appearance, PERRL, EOMI. Ears, Nose, Throat: normal pharynx, normal ENT inspection Neck: normal inspection, supple, full range of motion Respiratory: normal breath sounds, chest non-tender, no respiratory distress Cardiovascular: tachycardia Gastrointestinal: normal bowel sounds, soft, non-tender Back: normal inspection, normal range of motion Extremities: normal range of motion, pelvis stable Skin: intact, normal color, warm/dry IMPRESSION This is a lady with advanced dementia was essentially bedbound with total care lives in a rehabilitation facility with recent worsening of overall performance status was found to have significant hyperglycemia with ketosis and altered mental status. Issues include * Significant hyperglycemic state with altered mental status with hyperosmolar state and diabetic ketoacidosis. Patient has new onset diabetes. 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 The daughter does not wish any KO feeding tube or a PEG tube. If the patient has difficulty swallowing she wishes her mother to be made comfort. At this time she does not want to meet with the hospice nurse till she has a swallowing eval. Pending swallowing evaluation she will decide on further care. At this time the plan is to have the patient go to the floor and not to transfer her back to the intensive care and maximum medical therapy on the floor without any tube feedings are PEG tube. * COnt abx for now * Keep the head of bed elevated to prevent aspiration * Intravenous proton pump inhibitor * Patient has history of hypothyroidism she was on higher doses of Levoxyl at this time her free T4 is elevated this is being held as she is nothing by mouth. Patient is DNR/DNI To the floor Do not transferred to ICU If patient gets worse we will transition the patient to comfort versus hospice if she were to fail her swallowing evaluation
[2016-07-21] MEDS ORDERED: LISINOPRIL5 M1 PO (12:06)
[2016-07-21] MEDS ORDERED: SENNA8.6 M3 PO (12:06)
[2016-07-21] MEDS ORDERED: DEPAKENE250 MG PO (12:07)
[2016-07-21] MEDS ORDERED: QUETIAPINE FUMA50 M1 PO (12:08)
[2016-07-21] MEDS ORDERED: TRAZODONE HCL100 M1 PO (12:08)
[2016-07-21] MEDS ORDERED: TIROSINT100 MC1 PO (12:10)
[2016-07-21] MEDS ORDERED: MAPAP325 M1 PO (12:11)
[2016-07-21] MEDS ORDERED: CEROVITE L9 MG/15 ML PO (12:12)
--- NOTE | 2016-07-21 14:08 | Transfer of Care Summary ---
Hospital Course Course Hospital Course: 75-year-old female with PMH anxiety, depression, alzheimer's dementia, baseline nonverbal and unable to recognize people, hypothyroidism, was brought in by ambulance from [facility]) for glucose > 1000, persistent fever, and unresponsiveness. She has decreased PO intake over the past 2-3 days SEAL SKINNER, with BRANDON noted with Cr 4.3, with physical exam significant for dry mucous membranes despite having received 4L NS. Patient admitted to ICU for hyperosmolar hyperglycemic state with mild ketoacidosis and lactic acidosis, with fever up to 103.3, WBC 25.4 with 13 bands , most likely due to pneumonia as suggested by imaging. Troponin also found to be elevated at 0.14, most likely due to demand ischemia, subsequently came down. Her mentation, blood sugar, and kidney functions have improved with aggressive IVF and insulin drip, and she is currently on SC novolog and levemir. She passed swallow evaluation and currently on CC2 diet ground mech soft and thin. She is still maintained in IVF at 75ml/hr, and will be continued until she is consistently eating and drinking well. Her hba1c noted to be 10, without any prior history of diabetes. She might have developed diabetes after having been on quetiapine for aggression for the past 3 years. She also takes valproic acid and trazodone for behavioral issues. The patient's daughter would like to keep her off these meds as she seems more alert and she has not been aggressive lately. For aspiration PNA, she was started on unasyn, and still on it. Dose has been adjusted as per kidney clearance. Her thyroid noted to be high, hence her home dose is decreased from 250 to 200. Assessment/Plan: Problem list: # Hyperosmolar hyperglycemic state with mild ketoacidosis and lactic acidosis ( resolved) # Severe sepsis, hypotension, most likely due to pneumonia # BRANDON most likely due to poor PO intake (prerenal) # Positive troponin most likely demand ischemia # Dysphagia # Hyperosmolar hyperglycemic state with mild ketoacidosis and lactic acidosis - No hx of DM in pt or family - hba1c 10, she has been on quetiapine and valproic for behavioral problems. - LA 8.3 --> 3 * Appreciate endocrinology input, Dr. Mccracken * On SC NovoLog and Levemir 10 units twice a day. * On D5 half-normal saline + 20 milliequivalents KCl at 75 mL per hour. # Severe sepsis most likely due to PNA, with acute respiratory failure (pulse ox 90% on non rebreather, po2 77 on ABG, pco2 26L) - Flu negative - CT: Bilateral lower lobe airspace consolidations, right greater than left, which likely represent pneumonia. - The gallbladder is distended and hyperdense without pericholecystic fat stranding. This could represent stones versus sludge. Right upper quadrant ultrasound could be considered to help further evaluate if clinically indicated. * Follow pancx * Continue high dose unasyn for possible aspiration PNA, consider HCAP as well * Continue IV protonix # BRANDON most likely due to poor PO intake (prerenal) - Multiple hypodensities throughout the bilateral kidneys. Calcifications associated with a right kidney lower pole hypodense lesion. These could represent complex cysts; however, renal cell carcinoma cannot be excluded and followup ultrasound is recommended to help further evaluate. Nonobstructive right renal stone. * Creatinine upon presentation 4.3, improved to 0.7 with aggressive IVF # Positive troponin (most likely demand ischemia, tachy up to 140, fever) - Trop 0.14 on admission, then came down # Dysphagia * NPO await speech eval --> Diet advanced to ground mech soft and thin * ST following # Hypothyroid - On admission TSH/FT4 0.312, 2.76 - Repeat TSH/FT4 0.072/2.59 * Levothyroxine 250 mcg at home, reduced to 200 mcg # BRANDON, most likely prerenal - Cr 4.3 on admission, now down to 0.7 # HTN * Continue Lisinopril 5 # HOLD - Valproic 250, Trazodone 100, Quetiapine 50. Pt was started on these meds due to agitation and aggressive behavior. Pt's daughter would like to watch her off these meds as she seems more alert and awake since we have been holding these meds. * Resume meds if needed # Consitipation * Continue Senna and Miralax Diet: CC2 mechanical soft and thin DVT ppx: mec and pharm DNR/DNI
--- NOTE | 2016-07-21 14:36 | NUR ---
Report given to Kasia LUNA. Patient to be transfered to Room 216-1. Daughter Helene at bedside and aware of transfer to new room. Patient awake, alert, nonverbal. On 2L N/C oxygen, saturation = 96%. No signs of respiratory distrss or SOB. Speech therapist evaluated swallow at bedside. Advanced diet to Carb #2 Mechanical soft foods, thin liquids. Per Resident Dr Gray #134 will maintained Blood glucose testing Q4 hours with Novolog sliding scale for now. Blood sugar check at 1400 = 248. Covered per sliding scale. IVF D5 1/2 NS w/ 20 meq KCL at 125 ml/hr maintained infusing in #20 RFA well. Repositioned in bed. Skin intact. Lotion applied to skin. Vargas to bedside drainage, draining clear yellow urine, 800ml for shift. Last BM today, moderate soft brown stool noted, hemocult negative. Alps on. Bed alarm bed pad maintained. Call gomez in reach. Distribution notified of transfer. Awaiting transport.
[2016-07-21 16:02] VITALS: BP 134/82
--- NOTE | 2016-07-21 16:12 | NUR ---
1535 PATIENT ARRIVED TO FLOOR, ALERT AND CONFUSED, DAUGHTER AT BEDSIDE. BED ALARM AND ALPS ON, 02 AT 2L VIA NASAL CANNULA. BED IN LOW POSITION AND LOCKED. VITAL SIGNS STABLE. PATIENT SHOWS NO SIGNS OF DISTRESS.
--- NOTE | 2016-07-21 19:26 | Patient Discharge Instructions ---
Discharge Instructions General Discharge Information You were seen/treated for: diabetic ketoacidosis Special Instructions: -Please follow up with your PCP within one week of discharge. -Please follow up with your diabetes doctor Davide Mccracken MD within one week of discharge. -Please continue to monitor your sugar daily and continue to take your medications as prescribed. -Please review discharge summary for recommended lab works. -Please obtain geriatric psychiatric evaluation. Diet Continue normal diet: No Recommended Diet: Diabetic, mechanical soft and regular thin Acute Coronary Syndrome Inclusion Criteria At DC or during hospital stay patient has or had the following: ACS DIAGNOSIS No Discharge Core Measures Meds if any: Prescribed or Continued at Discharge Meds if any: NOT Prescribed or Continued at Discharge Congestive Heart Failure Inclusion Criteria At DC or during hospital stay patient has or had the following: CHF DIAGNOSIS No Discharge Core Measures Meds if any: Prescribed or Continued at Discharge Meds if any: NOT Prescribed or Continued at Discharge Cerebrovascular accident Inclusion Criteria At DC or during hospital stay patient has or had the following: CVA/TIA Diagnosis No Discharge Core Measures Meds if any: Prescribed or Continued at Discharge Meds if any: NOT Prescribed or Continued at Discharge Venous thromboembolism Inclusion Criteria VTE Diagnosis No VTE Type NONE VTE Confirmed by (Test) NONE Discharge Core Measures - Per Current guidelines, there needs to be overlap - treatment for the first 5 days of Warfarin therapy. - If discharged on Warfarin prior to 5 days of - overlap therapy, the patient will need to be - assessed for post discharge needs including - *Post discharge parental anticoagulation - *Warfarin and/or parental anticoagulation education - *Follow up date to check INR post discharge At least 5 days overlap therapy as Inpatient No Meds if any: Prescribed or Continued at Discharge Note: Overlap Therapy is Warfarin and Anticoagulant Meds if any: NOT Prescribed or Continued at Discharge
[2016-07-21 21:59] VITALS: BP 138/90
[2016-07-22 06:52] VITALS: BP 128/72
--- NOTE | 2016-07-22 07:25 | PN- Housestaff ---
See Addendum Subjective Follow-up For: # Uncontrolled DM # CAP # Hypothyrodism Subjective: Patient was seen and examined this morning, she is mute at baseline, no overnight events reported by the nurse. Vital signs are stable. Patient on 2 L oxygen with saturation 98% will start to titrate as tolerated. Review of Systems Constitutional: Reports: see HPI. Objective Last 24 Hrs of Vital Signs/I&O Vital Signs Date Time Temp Pulse Resp B/P Pulse O2 O2 Flow FiO2 Ox Delivery Rate 07/22 1447 97.7 57 20 126/74 93 Nasal 1.0L Cannula 07/22 1019 Nasal 2.0L Cannula 07/22 0800 93 Nasal 1.0L Cannula 07/22 0652 98.7 88 22 128/72 98 Nasal 2.0L Cannula 07/22 0000 Nasal 2.0L Cannula 07/21 2159 98.8 93 18 138/90 97 Nasal 2.0L Cannula Intake & Output 07/22 1600 07/22 0800 07/22 0000 Intake Total 1340 375 Output Total 680 342 1263 Balance -650 790 -825 Intake, IV 1100 375 Intake, Oral 240 Number 1 Bowel Movements Output, Urine [phone] Physical Exam General Appearance: Alert, No Acute Distress Skin: No Rashes, No Breakdown, No Significant Lesion HEENT: Atraumatic, PERRLA, EOMI, Mucous Membr. moist/pink Neck: Supple Cardiovascular: Regular Rate, Normal S1, Normal S2, No Murmurs Lungs: Clear to Auscultation, Normal Air Movement Abdomen: Normal Bowel Sounds, Soft, No Tenderness Neurological: Normal Tone, Sensation Intact, Cranial Nerves 3-12 NL, Reflexes 2+ Extremities: No Clubbing, No Cyanosis, No Edema, Normal Pulses Assessment/Plan Assessment: Problem list: # Hyperosmolar hyperglycemic state with mild ketoacidosis and lactic acidosis ( resolved) # Severe sepsis, hypotension, most likely due to pneumonia # BRNADON most likely due to poor PO intake (prerenal) # Positive troponin most likely demand ischemia # Dysphagia # Hyperosmolar hyperglycemic state with mild ketoacidosis and lactic acidosis - No previous diagnosis of diabetes, no family history of diabetes - Hemoglobin A1c 10, she has been on quetiapine and valproic for behavioral problems. - LA 8.3 --> 3 * Appreciate endocrinology input, Dr. Mccracken * Continue SC NovoLog before meals and at bedtime * Continue Levemir 10 units twice a day * Hyponatremia on admission, corrected 149 to 138, will give 1 pack of normal saline at 50 mL and recheck electrolytes at 1700 this evening # Severe sepsis most likely due to PNA, with acute respiratory failure (pulse ox 90% on non rebreather, po2 77 on ABG, pco2 26L) - Flu negative - CT: Bilateral lower lobe airspace consolidations, right greater than left, which likely represent pneumonia. - The gallbladder is distended and hyperdense without pericholecystic fat stranding. This could represent stones versus sludge. Right upper quadrant ultrasound could be considered to help further evaluate if clinically indicated. * Looked culture and urine culture are negative so far * Continue Unasyn for aspiration pneumonia Day #4 * Continue IV protonix # BRANDON most likely due to poor PO intake (prerenal) - Multiple hypodensities throughout the bilateral kidneys. Calcifications associated with a right kidney lower pole hypodense lesion. These could represent complex cysts; however, renal cell carcinoma cannot be excluded and followup ultrasound is recommended to help further evaluate. Nonobstructive right renal stone. * Creatinine upon presentation 4.3, improved to 0.7 with aggressive IVF * Resolved # Positive troponin (most likely demand ischemia, tachy up to 140, fever) - Trop 0.14 on admission -Resolved # Dysphagia * Swallowing evaluation was obtained, round mechanical and thin liquid # Hypothyroid - On admission TSH/FT4 0.312, 2.76 - Repeated TSH/FT4 - endocrine neurology recommendation was obtained, thanks for the input - we will further decrease levothyroxine to 150 MCG # HTN * Continue Lisinopril 5 # HOLD - Valproic 250, Trazodone 100, Quetiapine 50. Pt was started on these meds due to agitation and aggressive behavior. Pt's daughter would like to watch her off these meds as she seems more alert and awake since we have been holding these meds. * Resume meds if needed # Consitipation * Continue Senna and Miralax Diet: CC2 mechanical soft and thin DVT ppx: mech and pharm DNR/DNI Problem List: 1. DKA (diabetic ketoacidoses) 2. Acute renal failure 3. Elevated troponin 4. Lactic acidosis 5. Leukocytosis 6. Hyperosmolar coma 7. Aspiration pneumonia Pain Ratin Pain Location: None Pain Goal: Pain 4 or less Pain Plan: Mild pain pathway Tomorrow's Labs & Rationales: CBC, CMP
--- NOTE | 2016-07-22 07:41 | PN- Diabetes ---
Assessment/Plan Assessment: Patient is more alert this morning. Her mental status is improving. Her serum sodium is coming down and her metabolic encephalopathy is resolving. Repeat thyroid tests yesterday were still very elevated with a suppressed TSH which is almost nondetectable. Apparently the patient did pass the swallowing evaluation. She ate 75% of her suppertime meal yesterday. Plan: Suggest that since the patient is eating we can reduce the IV fluids to 50 mL/h. Await today's lab We also need to reduce her thyroid hormone replacement because thyroid tests are too high.. Presently she is on 200 g of levothyroxine. I would reduce this to levothyroxin 150 g daily. We need to change the patient's insulin now because she is eating. We need to place her on a basal bolus regimen. I would continue Levemir 10 units twice a day. We need to change her NovoLog to before meals with a separate sliding scale at bedtime. NovoLog coverage before meals should be 80-150 give 4 units NovoLog, 151-200 give 5 units NovoLog, 201-250 give 6 units NovoLog, 251-300 give 7 units NovoLog, 301-350 give 8 units NovoLog, 351-400 give 9 units NovoLog. The patient needs to be fed. If she does not eat the NovoLog should be held. A separate bedtime sliding-scale NovoLog should be written. Bedtime sliding- scale NovoLog should be less than 250 give no insulin, 251-300 give 2 units NovoLog, 301-350 give 3 units NovoLog, 351-400 give 4 units NovoLog. Subjective Subjective: And not answer questions Objective Last 24 Hrs of Vital Signs/I&O Vital Signs Date Time Temp Pulse Resp B/P Pulse O2 O2 Flow FiO2 Ox Delivery Rate 07/22 0652 98.7 88 22 128/72 98 Nasal 2.0L Cannula 07/22 0000 Nasal 2.0L Cannula 07/21 2159 98.8 93 18 138/90 97 Nasal 2.0L Cannula 07/21 1602 99.2 93 18 134/82 97 Nasal 2.0L Cannula 07/21 1600 94 Nasal 2.0L Cannula 07/21 0800 Nasal 2.0L Cannula 07/21 0800 97.8 92 20 134/68 93 Nasal 2.0L Cannula Intake & Output 07/22 0800 07/22 0000 07/21 1600 Intake Total 1340 375 970 Output Total 550 1200 800 Balance 790 -825 170 Intake, IV 1100 375 850 Intake, Oral 240 120 Number 1 1 Bowel Movements Output, Urine 550 1200 800 Patient 168 lb Weight Vital Signs Date Time Temp Pulse Resp B/P Pulse O2 O2 Flow FiO2 Ox Delivery Rate 07/22 0652 98.7 88 22 128/72 98 Nasal 2.0L Cannula 07/22 0000 Nasal 2.0L Cannula 07/21 2159 98.8 93 18 138/90 97 Nasal 2.0L Cannula 07/21 1602 99.2 93 18 134/82 97 Nasal 2.0L Cannula 07/21 1600 94 Nasal 2.0L Cannula 07/21 0800 Nasal 2.0L Cannula 07/21 0800 97.8 92 20 134/68 93 Nasal 2.0L Cannula Intake & Output 07/22 0800 07/22 0000 07/21 1600 Intake Total 1340 375 970 Output Total 550 1200 800 Balance 790 -825 170 Intake, IV 1100 375 850 Intake, Oral 240 120 Number 1 1 Bowel Movements Output, Urine 550 1200 800 Patient 168 lb Weight Physical Exam General Appearance: alert, awake, nonverbal Head: normal appearance Neck: normal inspection Respiratory: normal breath sounds Cardiovascular: regular rate/rhythm Extremities: normal inspection Current Medications: Current Medications Sig/Bess Start time Last Medication Dose Route Stop Time Status Admin Acetaminophen 1,000 MG Q6P PRN 07/19 1815 AC IV Ampicillin Sodium/ 3,000 MG Q6 07/21 1400 AC 07/22 Sulbactam Sodium IV 0620 Sodium Chloride 100 ML Ampicillin Sodium/ 3,000 MG Q12H 07/20 0300 [place] 07/21 Sulbactam Sodium IV 0236 Sodium Chloride 100 ML Heparin Sodium 5,000 UNIT Q8 07/21 1400 AC 07/22 (Porcine) SC 0621 Insulin Aspart 0 Q4 07/20 0900 07/22 SC 0623 Insulin Detemir 10 UNITS BID 07/20 0900 AC 07/21 SC 2140 Levothyroxine Sodium 0.2 MG DAILY AC 07/22 0700 AC 07/22 PO 0621 Levothyroxine Sodium 125 MCG DAILY 07/20 1746 DC 07/21 IV 0909 Lisinopril 5 MG DAILY 07/22 1000 AC PO Magnesium Sulfate 1 GM Q2H 07/21 0800 DC 07/21 Dextrose/Water 100 ML IV 07/21 1159 1151 Pantoprazole Sodium 40 MG DAILY 07/19 1700 AC 07/21 IV 0909 Polyethylene Glycol 17 GM DAILY 07/22 1000 AC PO Potassium Chloride 10 MEQ Q1H 07/21 0800 DC 07/21 IV 07/21 0901 1050 Potassium Chloride 20 MEQ Q6H 07/19 2330 AC 07/22 Dextrose/Sodium 1,000 ML IV 0620 Chloride Senna 187 MG AT BEDTIME 07/21 2200 AC 07/21 PO 2140 Findings Pertinent Lab/Neri Results: Laboratory Tests 07/22 0634 Chemistry Sodium (137 - 145 mmol/L) 138 Potassium (3.5 - 5.1 mmol/L) 4.3 Chloride (98 - 107 mmol/L) 106 Carbon Dioxide (22 - 30 mmol/L) 24 Anion Gap (5 - 16) 8 BUN (7 - 17 mg/dL) 11 Creatinine (0.5 - 1.0 mg/dL) 0.6 Estimated GFR (>60 ml/min) > 60 BUN/Creatinine Ratio (7 - 25 %) 18.3 Phosphorus (2.5 - 4.5 mg/dL) 3.1 Magnesium (1.6 - 2.3 mg/dL) 2.0 Hematology CBC w Diff Pending WBC Pending RBC Pending Hgb Pending Hct Pending MCV Pending MCH Pending RDW Pending Plt Count Pending MPV Pending Gran % Pending Lymphocytes % Pending Monocytes % Pending Eosinophils % Pending Basophils % Pending Absolute Granulocytes Pending Absolute Lymphocytes Pending Absolute Monocytes Pending Absolute Eosinophils Pending Absolute Basophils Pending PUBS MCHC Pending
[2016-07-22 07:49] LABS: ABSOLUTE BASOPHIL COUNT 0.1 /CUMM (0.0-0.2); ABSOLUTE EOSINOPHIL COUNT 0.1 /CUMM (0.0-0.7); ABSOLUTE GRANULOCYTE CT 6.7 /CUMM (1.4-6.5); ABSOLUTE LYMPH COUNT 3.7 /CUMM (1.2-3.4); ABSOLUTE MONOCYTE COUNT 0.7 /CUMM (0.10-0.60); BASOPHIL % 0.9 % (0.0-2.0); EOSINOPHIL % 1.2 % (0-5); GRANULOCYTE % 59.1 % (42.2-75.2); HEMATOCRIT 34.3 % (37-47); MEAN CORPUSCULAR HGB 31.4 PG (27.0-31.0); MEAN CORPUSCULAR HGB CONC 33.3 G/DL (33.0-37.0); MEAN CORPUSCULAR VOLUME 94.4 FL (81.0-99.0); MEAN PLATELET VOLUME 11.1 FL (7.4-10.4); RED BLOOD CELL CT 3.63 /CUMM (4.20-5.40)
[2016-07-22 08:36] LABS: WHITE BLOOD CELL COUNT 11.3 /CUMM (4.8-10.8)
[2016-07-22 08:37] LABS: PLATELET COUNT 113 /CUMM (130-400)
[2016-07-22 14:46] VITALS: BP 126/74
[2016-07-22 14:47] VITALS: BP 126/74
--- NOTE | 2016-07-22 16:36 | NUR ---
PATIENT'S DAUGHTER, HERSON, WOULD LIKE A PHONE CALL FROM HER DOCTOR TOMORROW MORNING AFTER ROUNDS FOR AN UPDATE. SHE CAN BE REACHED AT [phone].
[2016-07-22 20:52] VITALS: BP 154/60
--- NOTE | 2016-07-23 07:24 | PN- Housestaff ---
See Addendum Subjective Follow-up For: # Uncontrolled DM # CAP # Hypothyrodism Subjective: Patient was seen and examined today, no overnight events reported by the nurse, vital signs are stable. Patient mumbles some time with Slovak words, she has a very poor oral intake today. Patient had 4 bowel movement of loose stool, C. difficile was sent. Review of Systems Constitutional: Reports: see HPI. Objective Last 24 Hrs of Vital Signs/I&O Vital Signs Date Time Temp Pulse Resp B/P Pulse O2 O2 Flow FiO2 Ox Delivery Rate 07/23 0800 94 Room Air Room Air 07/23 0734 98.9 83 18 150/73 95 Room Air 07/22 2052 98.0 82 18 154/60 97 Room Air 07/22 1447 97.7 57 20 126/74 93 Nasal 1.0L Cannula Intake & Output 07/23 1600 07/23 0800 07/23 0000 Intake Total 400 400 Output Total 575 Balance 400 -175 Intake, IV 400 400 Output, Urine 575 Physical Exam General Appearance: Alert, Cooperative, No Acute Distress Skin: No Rashes, No Breakdown, No Significant Lesion HEENT: Atraumatic, PERRLA, EOMI, Mucous Membr. moist/pink Neck: Supple, No JVD Cardiovascular: Regular Rate, Normal S1, Normal S2, No Murmurs Lungs: Clear to Auscultation, Normal Air Movement Abdomen: Normal Bowel Sounds, Soft, No Tenderness Neurological: Normal Tone, Sensation Intact, Cranial Nerves 3-12 NL, Reflexes 2+ Extremities: No Clubbing, No Cyanosis, No Edema, Normal Pulses Assessment/Plan Assessment: Problem list: # Hyperosmolar hyperglycemic state with mild ketoacidosis and lactic acidosis ( resolved) # Severe sepsis, hypotension, most likely due to pneumonia # BRANDON most likely due to poor PO intake (prerenal) # Positive troponin most likely demand ischemia # Dysphagia # Hyperosmolar hyperglycemic state with mild ketoacidosis and lactic acidosis - No previous diagnosis of diabetes, no family history of diabetes - Hemoglobin A1c 10, she has been on quetiapine and valproic for behavioral problems. - LA 8.3 --> 3 * Appreciate endocrinology input, Dr. Mccracken * Continue SC NovoLog before meals and at bedtime * Continue Levemir 10 units twice a day * Hyponatremia resolved # Severe sepsis most likely due to PNA, with acute respiratory failure (pulse ox 90% on non rebreather, po2 77 on ABG, pco2 26L) - Flu negative - CT: Bilateral lower lobe airspace consolidations, right greater than left, which likely represent pneumonia. - The gallbladder is distended and hyperdense without pericholecystic fat stranding. This could represent stones versus sludge. Right upper quadrant ultrasound could be considered to help further evaluate if clinically indicated. * Looked culture and urine culture are negative so far * Continue Unasyn for aspiration pneumonia Day #5 * Continue IV protonix # BRANDON most likely due to poor PO intake (prerenal) - Multiple hypodensities throughout the bilateral kidneys. Calcifications associated with a right kidney lower pole hypodense lesion. These could represent complex cysts; however, renal cell carcinoma cannot be excluded and followup ultrasound is recommended to help further evaluate. Nonobstructive right renal stone. * Creatinine upon presentation 4.3, improved to 0.7 with aggressive IVF * Resolved # Positive troponin (most likely demand ischemia, tachy up to 140, fever) - Trop 0.14 on admission -Resolved # Dysphagia * Swallowing evaluation was obtained, round mechanical and thin liquid # Hypothyroid - On admission TSH/FT4 0.312, 2.76 - Endocrine neurology recommendation was obtained, thanks for the input - Continue Synthroid 150 g daily # HTN * Continue Lisinopril 5 # Psych medication for agitation - Valproic 250, Trazodone 100, Quetiapine 50. Pt was started on these meds due to agitation and aggressive behavior. Pt's daughter would like to watch her off these meds as she seems more alert and awake since we have been holding these meds. * Psych recommendation was obtained, thanks for recommendation # Consitipation * Continue Senna and Miralax Diet: CC2 mechanical soft and thin DVT ppx: mech and pharm DNR/DNI Problem List: 1. Aspiration pneumonia 2. DKA (diabetic ketoacidoses) Pain Ratin Pain Location: None Pain Goal: Pain 4 or less Pain Plan: Mild pain pathway Tomorrow's Labs & Rationales: CBC, CMP Tomorrow's Labs & Rationales: CBC, CMP
[2016-07-23 07:34] VITALS: BP 150/73
--- NOTE | 2016-07-23 07:37 | PN- Diabetes ---
Assessment/Plan Assessment: Patient is more alert this morning. Her mental status is improving. Her serum sodium has now become slightly low at 136. Her metabolic encephalopathy is resolving. Thyroid tests were very elevated with a suppressed TSH which was almost nondetectable. Yesterday we reduced her levothyroxine to 150 g daily. Fingerstick blood sugars yesterday were 207 before breakfast, 187 4 lunch, 182 before dinner and 326 at bedtime. Plan: Suggest DC the patient's IV fluids. Continue the present insulin. Monitor the patient's by mouth intake to make sure it is adequate. Subjective Subjective: Cannot answer questions Objective Last 24 Hrs of Vital Signs/I&O Vital Signs Date Time Temp Pulse Resp B/P Pulse O2 O2 Flow FiO2 Ox Delivery Rate 07/23 0734 98.9 83 18 150/73 95 Room Air 07/23 2051 98.0 82 18 154/60 97 Room Air 07/22 1447 97.7 57 20 126/74 93 Nasal 1.0L Cannula 07/22 1019 Nasal 2.0L Cannula 07/22 08 93 Nasal 1.0L Cannula Intake & Output 07/23 0807/23 0000 07/22 1600 Intake Total 400 900 Output Total 575 650 Balance -175 250 Intake, IV 400 400 Intake, Oral 500 Output, Urine 575 650 Vital Signs Date Time Temp Pulse Resp B/P Pulse O2 O2 Flow FiO2 Ox Delivery Rate 07/23 0734 98.9 83 18 150/73 95 Room Air 07/23 2051 98.0 82 18 154/60 97 Room Air 07/22 1447 97.7 57 20 126/74 93 Nasal 1.0L Cannula 07/22 1019 Nasal 2.0L Cannula 07/22 08 93 Nasal 1.0L Cannula Intake & Output 07/23 0807/23 0000 07/22 1600 Intake Total 400 900 Output Total 575 650 Balance -175 250 Intake, IV 400 400 Intake, Oral 500 Output, Urine 575 650 Physical Exam General Appearance: alert, awake, comfortable Neck: normal inspection Respiratory: normal breath sounds Cardiovascular: regular rate/rhythm Abdomen: normal bowel sounds Extremities: normal inspection Current Medications: Current Medications Sig/Bess Start time Last Medication Dose Route Stop Time Status Admin Acetaminophen 1,000 MG Q6P PRN 07/19 1815 AC IV Ampicillin Sodium/ 3,000 MG Q6 07/21 1400 AC 07/23 Sulbactam Sodium IV 0602 Sodium Chloride 100 ML Heparin Sodium 5,000 UNIT Q8 07/21 1400 AC 07/23 (Porcine) SC 0602 Insulin Aspart 0 AT BEDTIME 07/22 2200 AC 07/22 SC 2057 Insulin Aspart 0 TIDAC 07/22 1200 AC 07/22 SC 1740 Insulin Aspart 0 Q4 07/20 0900 DC 07/22 SC 1043 Insulin Detemir 10 UNITS BID 07/20 0900 AC 07/22 SC 2059 Levothyroxine Sodium 0.15 MG DAILY AC 07/23 0700 AC 07/23 PO 0601 Levothyroxine Sodium 0.2 MG DAILY AC 07/22 0700 DC 07/22 PO 0621 Lisinopril 5 MG DAILY 07/22 1000 AC 07/22 PO 1042 Pantoprazole Sodium 40 MG DAILY 07/19 1700 AC 07/22 IV 1043 Polyethylene Glycol 17 GM DAILY 07/22 1000 AC 07/22 PO 1043 Potassium Chloride 20 MEQ Q6H 07/19 2330 DC 07/22 Dextrose/Sodium 1,000 ML IV 0620 Chloride Senna 187 MG AT BEDTIME 07/21 2200 AC 07/22 PO 2058 Sodium Chloride 1,000 ML ONCE ONE 07/22 1115 DC 07/22 IV 07/23 0714 1437 Findings Pertinent Lab/Neri Results: Laboratory Tests 07/23 07/23 0640 0035 Chemistry Sodium (137 - 145 mmol/L) Pending 136 L Potassium (3.5 - 5.1 mmol/L) Pending 3.7 Chloride (98 - 107 mmol/L) Pending 104 Carbon Dioxide (22 - 30 mmol/L) Pending 27 Anion Gap (5 - 16) Pending 6 BUN (7 - 17 mg/dL) Pending 10 Creatinine (0.5 - 1.0 mg/dL) Pending 0.6 Estimated GFR (>60 ml/min) > 60 BUN/Creatinine Ratio (7 - 25 %) Pending 16.7 Hematology CBC w Diff Pending WBC Pending RBC Pending Hgb Pending Hct Pending MCV Pending MCH Pending RDW Pending Plt Count Pending MPV Pending PUBS MCHC Pending
[2016-07-23 08:07] LABS: ABSOLUTE BASOPHIL COUNT 0.1 /CUMM (0.0-0.2); ABSOLUTE EOSINOPHIL COUNT 0.3 /CUMM (0.0-0.7); ABSOLUTE GRANULOCYTE CT 7.3 /CUMM (1.4-6.5); ABSOLUTE LYMPH COUNT 3.2 /CUMM (1.2-3.4); ABSOLUTE MONOCYTE COUNT 0.9 /CUMM (0.10-0.60); BASOPHIL % 0.5 % (0.0-2.0); EOSINOPHIL % 2.7 % (0-5); GRANULOCYTE % 61.9 % (42.2-75.2); HEMATOCRIT 34.5 % (37-47); MEAN CORPUSCULAR HGB 31.5 PG (27.0-31.0); MEAN CORPUSCULAR HGB CONC 33.9 G/DL (33.0-37.0); MEAN PLATELET VOLUME 10.4 FL (7.4-10.4); PLATELET COUNT 152 /CUMM (130-400); RBC DISTRIBUTION WIDTH 12.6 % (11.5-14.5); RED BLOOD CELL CT 3.72 /CUMM (4.20-5.40); WHITE BLOOD CELL COUNT 11.8 /CUMM (4.8-10.8)
[2016-07-23 14:13] VITALS: BP 147/69
--- NOTE | 2016-07-23 14:40 | Cons- Psychiatry ---
Psychiatric Consult Date of Consult: 07/23/16 Reason for Consult: "Alzheimer's dementia, episodes of agitation, speaks Danish" History of Present Illness: 75 F BIBA from [facility] on 07/19/16 1254 for evaluation of altered MS. Per [facility] staff, she had a fever and UTI symptoms for several days. Per the H&P, the patient was unresponsive at presentation. She is DNR/DNI. Labs on 07/19/16: UA shows cloudy urine, protein 30, trace ketones, nitrite neg, leukocyte esterase neg, +sediment on microscopy, rare WBC, moderate epithelial cells, many bacteria, neg ur hemoglobin, ur glucose >1000. Glucose 1103, CO2 9, lactic 8.3, troponin 0.14 Labs 0n 07/21/16: TSH 0.072L, FT4 2.59H Labs on 07/23/16: WBC 11.8H, platelets 152 and trending up from 113L. Allergies: Coded Allergies: No Known Allergies (07/19/16) Current Medications: Current Medications Sig/Bess Start time Last Medication Dose Route Stop Time Status Admin Acetaminophen 1,000 MG Q6P PRN 07/19 1815 AC IV Ampicillin Sodium/ 3,000 MG Q6 07/21 1400 AC 07/23 Sulbactam Sodium IV 1301 Sodium Chloride 100 ML Heparin Sodium 5,000 UNIT Q8 07/21 1400 AC 07/23 (Porcine) SC 1302 Insulin Aspart 0 AT BEDTIME 07/22 2200 AC 07/22 SC 2058 Insulin Aspart 0 TIDAC 07/22 1200 AC 07/23 SC 1301 Insulin Detemir 10 UNITS BID 07/20 0900 AC 07/23 SC 0910 Lactobacillus 1 CAP BID 07/23 1351 AC Acidophilus PO Levothyroxine Sodium 0.15 MG DAILY AC 07/23 0700 AC 07/23 PO 0601 Lisinopril 5 MG DAILY 07/22 1000 AC 07/23 PO 0910 Pantoprazole Sodium 40 MG DAILY 07/19 1700 AC 07/23 IV 0910 Polyethylene Glycol 17 GM DAILY 07/22 1000 AC 07/23 PO 0910 Senna 187 MG AT BEDTIME 07/21 2200 AC 07/22 PO 2058 Sodium Chloride 1,000 ML ONCE ONE 07/22 1115 DC 07/22 IV 07/23 0714 1437 Past History Past Medical History Neurological: dementia EENT: NONE Cardiovascular: hypertension Respiratory: NONE Gastrointestinal: NONE Hepatic: NONE Renal: NONE Musculoskeletal: osteoarthritis Psychiatric: anxiety, depression, PERSONALITY DISORDER, None, per the daughter [facility] Endocrine: hypothyroidism Blood Disorders: NONE Cancer(s): NONE 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 She does not respond to verbal stimuli, and awakens to look around the room. She does not respond to simple questions in Danish. We were unable to conduct an interview with her today. She is in no apparent distress. Lab Results: 07/19/16 valproic acid 14.9, or subtherapeutic. Diffential Diagnosis: Delirium due to toxic or metabolic etiology on Alzheimer's dementia. Impression: This patient comes to the hospital from the [facility] on valproic acid 250 mg PO qPM, trazodone 100 mg PO qPM and quetiapine 50 mg PO qPM. We understand from nursing that these were started at the [facility] for agitation and combativeness. At these dosing levels, trazodone and quetiapine are likely prescribed to help the patient relax enough for sleep. We also understand that the daughter does not wish for these medications to be re-started, as her agitation has resolved. I confirmed this by telephone with her today. The medications, valproic acid, trazodone and quetiapine followed the patient from [facility] 3 years ago, and have not been needed for agitation since then. She reports that the patient does not speak anymore. The patient has no known psychiatric history. Provisional Treatment Plan: 1. Geriatric and psychiatric evaluation at the recieving facility. 2. Please order the following to rule out additional causes of altered mental status, if not already completed: - LFTs - CMP - UA & Culture - Thyroid panel - B12 & folate - ESR - RPR/VDRL - Lyme titer - Head CT 3. No psychotropic intervention for agitation indicated at this time. 4. Avoid quetiapine and other QTc prolonging agents, and please determine the cause of the current prolongation and resolve. 5. If insomnia, please consider melatonin as a first measure. If this is not effective, consider Rozerem. 6. Please continue to avoid benzodiazepines, opioid analgesics, and meds with strong anticholinergic properties as much as possible to prevent further confusion. 7. Please initiate the following nonpharmacologic interventions: -Avoid nursing and medical procedures during sleep hours whenever possible - Cluster at night interventions that must be completed as much as possible to minimize sleep disruption - Decrease noise patient area during sleeping hours - Reduce lighting at night - Ensure patient has any sensory aids close by that he regularly uses Thank-you for asking us to participate in Trisha's care. No further visits. Please reconsult if other psychiatric matters arise. Pop Marsh APRN, Pager [phone]
[2016-07-23 22:33] VITALS: BP 144/72
[2016-07-24 06:56] VITALS: BP 140/62
--- NOTE | 2016-07-24 07:22 | PN- Housestaff ---
See Addendum Subjective Follow-up For: # Uncontrolled DM # CAP # Hypothyrodism Subjective: Patient was seen and examined this morning, no overnight events reported by the nurse, vital signs are stable. Patient oral intake yesterday was 0% for breakfast and 15% for lunch and 50% for dinner, fluids total of 720 per 24 hours. I had a conversation with patient's daughter Ms. Narayan regarding patient's current clinical situation, I asked her about the oral intake and she reported that Ms. Ruano used to eat better when she feeds her. Patient's daughter doesn 't want to have her mother taking psych medication on regular basis and she reported that her mother is doing "phenomenal" and that when the patient was taking the psych medication she was like a "zombie" in the nursing facility. Review of Systems Constitutional: Reports: see HPI. Objective Last 24 Hrs of Vital Signs/I&O Vital Signs Date Time Temp Pulse Resp B/P Pulse O2 O2 Flow FiO2 Ox Delivery Rate 07/24 0656 98.0 92 20 140/62 93 Room Air 07/23 2233 97.6 89 20 144/72 97 Room Air 07/23 1413 98.1 95 18 147/69 96 Room Air Intake & Output 07/24 1600 07/24 0800 07/24 0000 Intake Total 380 360 Output Total 250 300 Balance 130 60 Intake, IV 260 Intake, Oral 120 360 Number 1 2 Bowel Movements Output, Urine 250 300 Physical Exam General Appearance: Alert, Cooperative, No Acute Distress Skin: No Rashes, No Breakdown, No Significant Lesion HEENT: Atraumatic, PERRLA, EOMI, Mucous Membr. moist/pink Neck: Supple, No JVD Cardiovascular: Regular Rate, Normal S1, Normal S2, No Murmurs Lungs: Clear to Auscultation, Normal Air Movement Abdomen: Normal Bowel Sounds, Soft, No Tenderness Neurological: Normal Tone, Sensation Intact, Cranial Nerves 3-12 NL, Reflexes 2+ Extremities: No Clubbing, No Cyanosis, No Edema, Normal Pulses Assessment/Plan Assessment: Problem list: # Hyperosmolar hyperglycemic state with mild ketoacidosis and lactic acidosis ( resolved) # Severe sepsis, hypotension, most likely due to pneumonia # BRANDON most likely due to poor PO intake (prerenal) # Positive troponin most likely demand ischemia # Dysphagia # Hyperosmolar hyperglycemic state with mild ketoacidosis and lactic acidosis - No previous diagnosis of diabetes, no family history of diabetes - Hemoglobin A1c 10, she has been on quetiapine and valproic for behavioral problems. - LA 8.3 --> 3 * Appreciate endocrinology input, Dr. Mccracken * Continue SC NovoLog before meals and at bedtime * Continue Levemir 10 units twice a day * Hyponatremia resolved # Severe sepsis most likely due to PNA, with acute respiratory failure (pulse ox 90% on non rebreather, po2 77 on ABG, pco2 26L) - Flu negative - CT: Bilateral lower lobe airspace consolidations, right greater than left, which likely represent pneumonia. - The gallbladder is distended and hyperdense without pericholecystic fat stranding. This could represent stones versus sludge. Right upper quadrant ultrasound could be considered to help further evaluate if clinically indicated. * Looked culture and urine culture are negative so far * Continue Unasyn for aspiration pneumonia Day #5, was switched to Augmentin by mouth on discharge to finish course of 7 days total * Continue IV protonix # BRANDON most likely due to poor PO intake (prerenal) - Multiple hypodensities throughout the bilateral kidneys. Calcifications associated with a right kidney lower pole hypodense lesion. These could represent complex cysts; however, renal cell carcinoma cannot be excluded and followup ultrasound is recommended to help further evaluate. Nonobstructive right renal stone. * Creatinine upon presentation 4.3, improved to 0.7 with aggressive IVF * Resolved # Positive troponin (most likely demand ischemia, tachy up to 140, fever) - Trop 0.14 on admission -Resolved # Dysphagia * Swallowing evaluation was obtained, round mechanical and thin liquid # Hypothyroid - On admission TSH/FT4 0.312, 2.76 - Endocrine neurology recommendation was obtained, thanks for the input - Continue Synthroid 150 g daily # HTN * Continue Lisinopril 5 # Psych medication for agitation - Valproic 250, Trazodone 100, Quetiapine 50. Pt was started on these meds due to agitation and aggressive behavior. Pt's daughter would like to watch her off these meds as she seems more alert and awake since we have been holding these meds. * Psych recommendation was obtained, thanks for recommendation # Consitipation * Continue Senna and Miralax Diet: CC2 mechanical soft and thin DVT ppx: mech and pharm DNR/DNI Patient is for discharge today back to [facility] Problem List: 1. Aspiration pneumonia 2. DKA (diabetic ketoacidoses) Pain Ratin Pain Location: None Pain Goal: Pain 4 or less Pain Plan: Mild pain pathway Tomorrow's Labs & Rationales: None
--- NOTE | 2016-07-24 08:23 | PN- Diabetes ---
Assessment/Plan Assessment: Patient is alert this morning. Her mental status is improving. Her serum sodium has now become slightly low at 136. Her metabolic encephalopathy is resolving. Thyroid tests were very elevated with a suppressed TSH which was almost nondetectable. Yesterday we reduced her levothyroxine to 150 g daily. Apparently the patient's by mouth intake is only fair. Plan: Patient's blood sugars are in adequate control. I would continue the present insulin regimen. If the patient does not eat we should hold her NovoLog. Subjective Subjective: feels improved Objective Last 24 Hrs of Vital Signs/I&O Vital Signs Date Time Temp Pulse Resp B/P Pulse O2 O2 Flow FiO2 Ox Delivery Rate 07/24 0656 98.0 92 20 140/62 93 Room Air 07/23 2233 97.6 89 20 144/72 97 Room Air 07/23 1413 98.1 95 18 147/69 96 Room Air Intake & Output 07/24 1600 07/24 0800 07/24 0000 Intake Total 380 360 Output Total 250 300 Balance 130 60 Intake, IV 260 Intake, Oral 120 360 Number 1 2 Bowel Movements Output, Urine 250 300 Vital Signs Date Time Temp Pulse Resp B/P Pulse O2 O2 Flow FiO2 Ox Delivery Rate 07/24 0656 98.0 92 20 140/62 93 Room Air 07/23 2233 97.6 89 20 144/72 97 Room Air 07/23 1413 98.1 95 18 147/69 96 Room Air Intake & Output 07/24 1600 07/24 0800 07/24 0000 Intake Total 380 360 Output Total 250 300 Balance 130 60 Intake, IV 260 Intake, Oral 120 360 Number 1 2 Bowel Movements Output, Urine 250 300 Physical Exam General Appearance: alert, awake, non verbal Current Medications: Current Medications Sig/Bess Start time Last Medication Dose Route Stop Time Status Admin Acetaminophen 1,000 MG Q6P PRN 07/19 1815 AC IV Ampicillin Sodium/ 3,000 MG Q6 07/21 1400 AC 07/24 Sulbactam Sodium IV 0508 Sodium Chloride 100 ML Heparin Sodium 5,000 UNIT Q8 07/21 1400 AC 07/24 (Porcine) SC 0510 Insulin Aspart 0 AT BEDTIME 07/22 2200 AC 07/22 SC 2058 Insulin Aspart 0 TIDAC 07/22 1200 AC 07/23 IN 1714 Insulin Detemir 10 UNITS BID 07/20 0900 AC 07/23 SC 2150 Lactobacillus 1 CAP BID 07/23 1351 AC 07/23 Acidophilus PO 2150 Levothyroxine Sodium 0.15 MG DAILY AC 07/23 0700 AC 07/24 PO 0510 Lisinopril 5 MG DAILY 07/22 1000 AC 07/23 PO 0910 Pantoprazole Sodium 40 MG DAILY 07/19 1700 AC 07/23 IV 0910 Polyethylene Glycol 17 GM DAILY 07/22 1000 AC 07/23 PO 0910 Senna 187 MG AT BEDTIME 07/21 2200 AC 07/22 PO 2057
--- NOTE | 2016-07-24 08:26 | Discharge Summary ---
Visit Information Visit Dates Admission Date: 07/19/16 Discharge Date: 07/24/2016 Hospital Course Course Attending Physician: PEPITO GRAY,MIGUEL Lord Primary Care Physician[facility] Course: 75-year-old female with PMH anxiety, depression, alzheimer's dementia, baseline nonverbal and unable to recognize people, hypothyroidism, was brought in by ambulance from [facility]) for glucose > 1000, persistent fever, and unresponsiveness. Problem list: # Hyperosmolar hyperglycemic state with mild ketoacidosis and lactic acidosis ( resolved) # Severe sepsis, hypotension, most likely due to pneumonia # BRANDON most likely due to poor PO intake (prerenal) # Positive troponin most likely demand ischemia # Dysphagia # Hyperosmolar hyperglycemic state with mild ketoacidosis and lactic acidosis: Patient admitted to ICU for hyperosmolar hyperglycemic state with mild ketoacidosis and lactic acidosis, with fever up to 103.3, WBC 25.4 with 13 bands , most likely due to pneumonia as suggested by imaging. Troponin also found to be elevated at 0.14, most likely due to demand ischemia, subsequently came down. Her mentation, blood sugar, and kidney functions have improved with aggressive IVF and insulin drip, and she was later transitioned to SC novolog and levemir. TID accucheks were done and patient's insulin scale was adjusted per Endocrinology recommendations. IVF'd were continued until she started drinking well. PATIENT NEEDS TO FOLLOW UP WITH DR MCCRACKEN ([employer] ) WITHIN 2 WEEKS OF DISCHARGE. # Severe sepsis most likely due to PNA, with acute respiratory failure: Patient was admitted to the ICU for sepsis. She had high fevers and bandemia.CT showed bilateral lower lobe airspace consolidations, right greater than left, which likely represent pneumonia. Flu was negative. Urine and blood cultures were negative. Patient was treated with Unasyn for aspiration pneumonia. She was continued on Protonix. Her pneumonia improved and she remained afebrile and off oxygen during rest of her hospital days. Discharged on Augmentin to [facility] a total course of 7 days of antibiotic. # BRANDON most likely due to poor PO intake (prerenal) Imaging showed multiple hypodensities throughout the bilateral kidneys. Calcifications associated with a right kidney lower pole hypodense lesion. These could represent complex cysts and nonobstructive right renal stone. Creatinine upon presentation 4.3, improved to 0.7 with aggressive IVF. Outpatient follow up regarding the kidney stones. # Positive troponin (most likely demand ischemia, tachy up to 140, fever) :Trop 0.14 on admission, then came down. Likely demand ischemia in the setting of sepsis. # Dysphagia: NPO initially till speech evaluation. Patient passed the swallow eval and was advanced to ground mechanical and thin liquid. # Hypothyroid: On admission TSH/FT4 0.312, 2.76. Repeat TSH/FT4 0.072/2.59. Levothyroxine 250 mcg at home, reduced to 150 mcg. Endocrinology was on board. # HTN: Continued on Lisinopril 5 # HOLD: Was on Valproic 250, Trazodone 100, Quetiapine 50. Pt was started on these meds due to agitation and aggressive behavior. Pt's daughter would like to watch her off these meds as she seems more alert and awake since we have been holding these meds. Patient was seen by psychiatry in the hospital recommended checking some basic lab work and no medications. Patient was disturbed least by the nurses to prevent her from getting agitated. PATIENT NEEDS GERIATRIC PHYCH EVALUATION AFTER DIOSCHARGE. # Consitipation: Continue Senna and Miralax OUTPATIENT LABS TO BE DONE: - LFTs, - CMP - UA & Culture - Thyroid panel - B12 & folate - ESR - RPR/VDRL - Lyme titer - Head CT -TSH, FREE T4 IN 3-4 WEEKS. Diet: DIABETIC ground mechanical soft and thin DVT ppx: mech and pharm DNR/DNI Allergies: Coded Allergies: No Known Allergies (07/19/16) Disposition Summary Disposition Principal Diagnosis: DIABETIC KETOACIDOSIS Additional Diagnosis: ASPIRATION PNA Discharge Disposition: SNF Discharge Instructions General Discharge Information Code Status: Do Not Resucitate/Intubat Patient's Diet: Diabetic, mechanical soft and regular thin Patient's Activity: TOLERATED Follow-Up Instructions/Appts: -Please follow up with your PCP within one week of discharge. -Please follow up with your diabetes doctor Aram Mccracken MD within one week of discharge. -Please continue to monitor your sugar daily and continue to take your medications as prescribed. -Please review discharge summary for recommended lab works. -Please obtain geriatric psychiatric evaluation. Medications at Discharge Discharge Medications: Stop taking the following medications: Valproic Acid (Depakene) 250 MG CAPSULE ORAL Every night Trazodone HCl (Trazodone HCl) 100 MG TABLET ORAL Every night Quetiapine Fumarate (Quetiapine Fumarate) 50 MG TABLET ORAL Every night Levothyroxine Sodium (Tirosint) 100 MCG CAPSULE ORAL DAILY Continue taking these medications: Lisinopril (Lisinopril) 5 MG TABLET 1 Tablet ORAL DAILY Comments: Last Taken:07/24/16 Time: 12 NOON Sennosides (Senna) 8.6 MG TABLET 1 Tablet ORAL TWICE DAILY Acetaminophen (Mapap) 325 MG TABLET 1 Tablet ORAL TWICE DAILY Multivit-Minerals/Ferrous Gluc (Cerovite Liquid) 9 MG IRON/15 ML LIQUID 15 Milliliters ORAL DAILY Start taking the following new medications: Insulin Detemir (Levemir) 100 UNIT/ML VIAL 10 Units Inject into fatty tissue TWICE DAILY Qty = 60 No Refills Insulin Aspart (Novolog) 100 UNIT/ML VIAL 0 Units Inject into fatty tissue 3 TIMES DAILY BEFORE MEALS Qty = 90 No Refills Instructions: 80-150 give 4 units 151-200 give 5 units 201-250 give 6 units 251-300 give 7 units 301-350 give 8 units 351-400 give 9 units Insulin Aspart (Novolog) 100 UNIT/ML VIAL 0 Units Inject into fatty tissue AT BEDTIME Qty = 60 No Refills Instructions: less than 250 give no insulin 251-300 give 2 units 301-350 give 3 units 351-400 give 4 units Levothyroxine Sodium (Synthroid) 150 MCG TABLET 0.15 Milligram ORAL DAILY BEFORE BREAKFAST Qty = 60 No Refills Cod Liver Oil/Zinc Oxide (Desitin Diaper Rash 40% Paste) 40 % PASTE..G. 1 Application On the skin TWICE DAILY Qty = 30 No Refills Instructions: please apply to gluteal area Comments: Last Taken:07/24/16 Time: 12 NOON Amoxicillin/Potassium Clav (Augmentin 875-125 Tablet) 875 MG-125 MG TABLET 1 Tablet ORAL TWICE DAILY Days = 2 No Refills Pantoprazole Sodium (Protonix) 40 MG TABLET.DR 1 Tablet ORAL DAILY Qty = 30 No Refills Copies To: MIGUEL BEYER MD; WALLY GRAY,DIVINA Sarabia; MILLICENT GRAY,ARAM Block Attending MD Review Statement Documenting Attending: MIGUEL BEYER MD Other Findings: Please see my attending note for more details. Agree with the above discharge plan.
[2016-07-24] MEDS ORDERED: LEVEMIR100 UNIT/1 SC (10:55)
[2016-07-24] MEDS ORDERED: NOVOLOG100 UNIT/2 SC ×2 (11:12→11:14)
[2016-07-24] MEDS ORDERED: SYNTHROID150 MCG PO (11:14)
[2016-07-24] MEDS ORDERED: PROTONIX40 M3 PO (11:17)
[2016-07-24] MEDS ORDERED: AUGMENTIN 875-1 EACH PO (13:04)
[2016-07-24] MEDS ORDERED: DESITIN DIAPER28 GM TOP (13:51)
[2016-07-24 14:23] VITALS: BP 166/78
[2016-07-24 15:09] VITALS: BP 166/78
== END 2016-07-24 15:15 | DRG 871 ==
LOC: ENRESERVTM → ENRESERVDT → ERH 12:39 → ERHI 14:23 → ENPENDDIS 14:23 → CRI 14:23 → ERHI 17:41 → CRI 18:50 → 2NB 07-21 15:34
PROVIDERS: Internal Medicine Cardiovascular Disease; Nurse Practitioner Family; Radiology Diagnostic Radiology; Student in an Organized Health Care Education/Training Program; ADMIT Internal Medicine
DX: A41.9 Sepsis, unspecified organism (principal); J69.0 Pneumonitis due to inhalation of food and vomit; J96.01 Acute respiratory failure with hypoxia; G93.41 Metabolic encephalopathy; N17.9 Acute kidney failure, unspecified; E13.10 Other specified diabetes mellitus with ketoacidosis without coma; E87.0 Hyperosmolality and hypernatremia; I24.8 Other forms of acute ischemic heart disease; R65.20 Severe sepsis without septic shock; G30.9 Alzheimer's disease, unspecified; F02.80 Dementia in other diseases classified elsewhere, unspecified severity, without behavioral disturbance, psychotic disturbance, mood disturbance, and anxiety; E03.9 Hypothyroidism, unspecified; Z66 Do not resuscitate; I10 Essential (primary) hypertension
CPT/HCPCS: 2NBSP; CCU; 36415; 74176; 81001; 82436; 87040; 87070; 87086; 87804; 87804-59; 93005; 93010; 96361; 96365; 96374; 99291; J0131; J1644; J1815; J7042; J7060